=== PATIENT | female | born 1955 | race Caucasian/White ===

== ENCOUNTER → 2016-09-04 | Outpatient (CLI) | payer BC ==
[~2016-09-04] MED LIST: ASPI325T OR; CALTRATE 600 + D PO; CETI5TAB2 OR; DIOV160T5 OR; FIBER CON PO; MULTIVIT PO; OXYB10TA OR; PEPC20TA2 OR; ZOCO40TA OR; estrogen PO
[2016-09-04 13:43] LABS: BLOOD UREA NITROGEN 23 MG/DL (7-18); CREATININE FOR GFR 0.84 MG/DL (0.55-1.02); GLUCOSE, FASTING 107 MG/DL (80-110)
[2016-09-04 13:44] LABS: ALBUMIN 4.4 GM/DL (3.2-5.2); ALBUMIN/GLOBULIN RATIO 1.76 (1.00-1.93); ALKALINE PHOSPHATASE 83 U/L (45-117); ALT/SGPT 23 U/L (12-78); ANION GAP 8 MEQ/L (8-16); AST/SGOT 17 U/L (15-37); BILIRUBIN,TOTAL 0.4 MG/DL (0.2-1.0); CARBON DIOXIDE LEVEL 28 MEQ/L (21-32); CHLORIDE LEVEL 107 MEQ/L (98-107); CHOLESTEROL LEVEL 151 MG/DL (<200); GLOMERULAR FILTRATION RATE > 60.0 (>45); POTASSIUM SERUM 4.3 MEQ/L (3.5-5.1); SODIUM LEVEL 143 MEQ/L (136-145); TOTAL PROTEIN 6.9 GM/DL (6.4-8.2); TRIGLYCERIDES LEVEL 111 MG/DL (<150)
== END ==
LOC: M SMT 09:39
PROVIDERS: ATTEND Family Medicine
DX: E78.2 Mixed hyperlipidemia (principal); R73.01 Impaired fasting glucose

== ENCOUNTER → 2016-09-14 | Outpatient (REF) | payer BC ==
[2016-09-14 13:51] LABS: BASO % 0.5 % (0.0-1.0); EOS # 0.2 K/mm3 (0.0-0.50); EOS % 3.4 % (0.0-3.0); LARGE UNSTAINED CELL # 0.1 K/mm3 (0.0-0.4); LARGE UNSTAINED CELL % 1.7 % (0.0-4.0); LYMPH # 1.4 K/mm3 (1.5-4.5); MEAN CORPUSCULAR HEMOGLOBIN 30.2 pg (27.0-33.0); MEAN CORPUSCULAR HGB CONC 32.5 g/dl (32.0-36.5); MEAN CORPUSCULAR VOLUME 92.9 fl (80.0-96.0); MONO # 0.2 K/mm3 (0.0-0.8); MONO % 4.8 % (0.0-5.0); NEUTROPHILS % 61.6 % (36.0-66.0); PLATELET COUNT, AUTOMATED 178 k/mm3 (150-450); RED CELL DISTRIBUTION WIDTH 12.8 % (11.5-14.5); WHITE BLOOD COUNT 4.8 K/mm3 (4.0-10.0)
[2016-09-14 13:59] LABS: PERCENT SATURATION 21.8 % (13.2-37.4)
== END ==
LOC: M SFHCPLAZ 09:41
PROVIDERS: ATTEND Family Medicine
DX: I10 Essential (primary) hypertension (principal)

== ENCOUNTER → 2016-11-27 | Outpatient (CLI) | payer BC ==
--- NOTE | 2016-11-27 14:33 | REPMRS ---
Patient History The patient states she has not had a clinical breast exam in over a year. Patient is postmenopausal. Family history of breast cancer in maternal aunt and breast cancer in paternal aunt. Benign stereotactic core biopsy of the left breast, 2006. Took unspecified hormones for 26 years. Digital Woman Screen Mammo: November 27, 2016 - Exam #: [id number] Bilateral CC and MLO view(s) were taken. Technologist: Melvi Burns, Technologist Prior study comparison: November 18, 2015, bilateral digital mammo screening bilat, performed at [facility]. May 12, 2015, right breast digital mammo diagnostic unilateral, performed at [facility]. FINDINGS: The breast tissue is heterogeneously dense. This may lower the sensitivity of mammography. There has been no change in the appearance of the mammogram from the prior studies. There is a moderate amount of residual fibroglandular tissue which is fairly symmetric. There is no interval development of dominant mass, areas of architectural distortion, or clustered microcalcification typical of malignancy. ASSESSMENT: BI-RADS/ACR category 1 mammogram. Negative. Recommendation Routine screening mammogram in 1 year (for women over age 40). This mammogram was interpreted with the aid of an FDA-approved computer-aided dectection system. Electronically Signed By: Malcolm Thornton MD 11/27/16 1116
--- NOTE | 2016-11-29 14:05 | DEXA ---
AP SPINE L1 - L4 1.084 -0.9 0.4 LT FEMUR TOTAL 0.864 -1.1 -0.1 RT FEMUR TOTAL 0.848 -1.3 -0.3 TOTAL BODY TOTAL OTHER DUAL FEMUR FRAX* ASSESSMENT Risk factors: History of fracture (adult). Secondary osteoporosis ( premature menopause). 10 year probability of fracture Major osteoporotic fracture 16.9 % Hip fracture 2.3 % COMMENTS: Normal bone densitometry of the spine. There is low bone density of the hips. The decreased density of the spine does represent a significant change. The decreased density of the left hip does represent a significant change. The decreased density of the right hip does not represent a significant change. The density of the spine has decreased 7.4% since the initial exam on 2002. The spine density has decreased 2.2% since the most recent exam on 10/07/2014. The density of the left hip has decreased 12.0% since the initial exam on 2002. The density of the left hip has decreased 5.0% since the most recent exam on 03/2015. The density of the right hip has decreased 12.1% since the initial exam on 04/07. The density of the right hip has decreased 0.6% since the most recent exam on . FOLLOW-UP: Recommendation for the next bone density exam: 2 years. CHRIS
== END ==
LOC: M WHC 12:52
PROVIDERS: ATTEND Family Medicine
DX: Z12.31 Encounter for screening mammogram for malignant neoplasm of breast (principal); M85.80 Other specified disorders of bone density and structure, unspecified site; Z78.0 Asymptomatic menopausal state
CPT/HCPCS: 77080; G0202

== ENCOUNTER → 2017-02-01 | Outpatient (CLI) | payer BC ==
[2017-02-01 17:44] LABS: ALBUMIN 4.5 GM/DL (3.2-5.2); ALBUMIN/GLOBULIN RATIO 1.88 (1.00-1.93); ALKALINE PHOSPHATASE 80 U/L (45-117); ALT/SGPT 25 U/L (12-78); ANION GAP 7 MEQ/L (8-16); AST/SGOT 13 U/L (15-37); BILIRUBIN,TOTAL 0.6 MG/DL (0.2-1.0); BLOOD UREA NITROGEN 22 MG/DL (7-18); CALCIUM LEVEL 10.1 MG/DL (8.8-10.2); CARBON DIOXIDE LEVEL 30 MEQ/L (21-32); CHLORIDE LEVEL 106 MEQ/L (98-107); CREATININE FOR GFR 0.73 MG/DL (0.55-1.02); GLOMERULAR FILTRATION RATE > 60.0 (>45); GLUCOSE, FASTING 96 MG/DL (80-110); MAGNESIUM LEVEL 2.4 MG/DL (1.8-2.4); POTASSIUM SERUM 4.3 MEQ/L (3.5-5.1); SODIUM LEVEL 143 MEQ/L (136-145); TOTAL PROTEIN 6.9 GM/DL (6.4-8.2)
[2017-02-01 17:54] LABS: BASO % 0.5 % (0.0-1.0); EOS # 0.1 K/mm3 (0.0-0.50); EOS % 1.5 % (0.0-3.0); LARGE UNSTAINED CELL # 0.1 K/mm3 (0.0-0.4); LARGE UNSTAINED CELL % 1.5 % (0.0-4.0); LYMPH # 1.2 K/mm3 (1.5-4.5); LYMPH % 20.3 % (24.0-44.0); MEAN CORPUSCULAR HEMOGLOBIN 30.2 pg (27.0-33.0); MEAN CORPUSCULAR VOLUME 91.4 fl (80.0-96.0); MONO # 0.3 K/mm3 (0.0-0.8); MONO % 4.7 % (0.0-5.0); NEUTROPHILS # 3.9 K/mm3 (1.8-7.7); NEUTROPHILS % 71.5 % (36.0-66.0); PLATELET COUNT, AUTOMATED 218 k/mm3 (150-450); WHITE BLOOD COUNT 5.5 K/mm3 (4.0-10.0)
== END ==
LOC: M SMT 13:35
PROVIDERS: ATTEND Family Medicine
DX: I10 Essential (primary) hypertension (principal); R73.01 Impaired fasting glucose; E55.9 Vitamin D deficiency, unspecified

== ENCOUNTER → 2017-03-19 | Outpatient (REF) | payer BC ==
[2017-03-19 19:03] LABS: ALBUMIN 4.1 GM/DL (3.2-5.2); ALBUMIN/GLOBULIN RATIO 1.37 (1.00-1.93); ALKALINE PHOSPHATASE 71 U/L (45-117); ALT/SGPT 31 U/L (12-78); ANION GAP 7 MEQ/L (8-16); AST/SGOT 18 U/L (15-37); BILIRUBIN,TOTAL 0.3 MG/DL (0.2-1.0); BLOOD UREA NITROGEN 21 MG/DL (7-18); CALCIUM LEVEL 9.4 MG/DL (8.8-10.2); CARBON DIOXIDE LEVEL 30 MEQ/L (21-32); CHLORIDE LEVEL 107 MEQ/L (98-107); CHOLESTEROL LEVEL 146 MG/DL (<200); CREATININE FOR GFR 0.71 MG/DL (0.55-1.02); FERRITIN 32 NG/ML (8-252); GLOMERULAR FILTRATION RATE > 60.0 (>45); GLUCOSE, FASTING 91 MG/DL (80-110); MAGNESIUM LEVEL 2.3 MG/DL (1.8-2.4); PERCENT SATURATION 26.3 % (13.2-45.0); POTASSIUM SERUM 4.2 MEQ/L (3.5-5.1); SODIUM LEVEL 144 MEQ/L (136-145); TOTAL IRON BINDING CAPACITY 342 UG/DL (250-450); TOTAL PROTEIN 7.1 GM/DL (6.4-8.2); TRIGLYCERIDES LEVEL 140 MG/DL (<150)
[2017-03-19 19:07] LABS: VITAMIN B12 LEVEL 571 PG/ML (247-911)
== END ==
LOC: M SFHCPLAZ 15:45
PROVIDERS: ATTEND Physician Assistant Medical
DX: E78.2 Mixed hyperlipidemia (principal); I10 Essential (primary) hypertension; R73.01 Impaired fasting glucose

== ENCOUNTER 2017-07-27 02:14 | Emergency (ER) | payer OTHER, BC ==
[2017-07-27 03:09] LABS: BASO % 0.3 % (0.0-1.0); EOS # 0.1 10^3/uL (0.0-0.50); EOS % 2.6 % (0.0-3.0); HEMOGLOBIN 11.8 g/dl (12.0-16.0); IMMATURE GRANULOCYTE % 0.3 % (0-0); LYMPH # 0.8 10^3/uL (1.5-4.5); LYMPH % 22.1 % (24.0-44.0); MEAN CORPUSCULAR HEMOGLOBIN 30.5 pg (27.0-33.0); MEAN CORPUSCULAR HGB CONC 33.7 g/dl (32.0-36.5); MEAN CORPUSCULAR VOLUME 90.4 fl (80.0-96.0); MONO # 0.4 10^3/uL (0.0-0.8); MONO % 9.2 % (0.0-5.0); NEUTROPHILS # 2.5 10^3/uL (1.8-7.7); NEUTROPHILS % 65.5 % (36.0-66.0); PLATELET COUNT, AUTOMATED 141 10^3/uL (150-450); RED BLOOD COUNT 3.87 10^6/uL (4.00-5.40); RED CELL DISTRIBUTION WIDTH 12.8 % (11.5-14.5); WHITE BLOOD COUNT 3.8 10^3/uL (4.0-10.0)
[2017-07-27] MEDS: GI COCKTAIL 50ML BTL(HYOSCYAMINE/MAALOX/LIDOCAINE VISCOUS)(1:3:1) PO (03:12)
[2017-07-27 03:23] LABS: ANION GAP 6 MEQ/L (8-16); BLOOD UREA NITROGEN 20 MG/DL (7-18); CALCIUM LEVEL 8.7 MG/DL (8.8-10.2); CARBON DIOXIDE LEVEL 27 MEQ/L (21-32); CHLORIDE LEVEL 106 MEQ/L (98-107); CPK CREATINE PHOSPHOKINASE 97 U/L (26-192); CREATININE FOR GFR 0.76 MG/DL (0.55-1.02); GLOMERULAR FILTRATION RATE > 60.0 (>45); GLUCOSE, FASTING 122 MG/DL (70-100); MB/CK RELATIVE INDEX 1.03 (< OR =4); POTASSIUM SERUM 3.9 MEQ/L (3.5-5.1); SODIUM LEVEL 139 MEQ/L (136-145); TROPONIN I < 0.02 NG/ML (< 0.10)
[2017-07-27] MEDS: PANTOPRAZOLE 40MG INJ (PROTONIX) (C9113) IV (04:00)
[2017-07-27 08:22] LABS: CPK CREATINE PHOSPHOKINASE 82 U/L (26-192); MB/CK RELATIVE INDEX 1.21 (< OR =4); TROPONIN I < 0.02 NG/ML (< 0.10)
== END 2017-07-27 09:07 | disposition home or self-care (01) ==
LOC: M ED 02:14
DX: R07.9 Chest pain, unspecified (principal); I25.2 Old myocardial infarction; Z79.890 Hormone replacement therapy; Z79.82 Long term (current) use of aspirin; Z79.899 Other long term (current) drug therapy; Z82.49 Family history of ischemic heart disease and other diseases of the circulatory system
CPT/HCPCS: C9113

== ENCOUNTER → 2017-08-06 | Outpatient (REF) | payer OTHER ==
[2017-08-06 12:56] LABS: BASO % 0.4 % (0.0-1.0); EOS # 0.1 10^3/uL (0.0-0.50); EOS % 2.4 % (0.0-3.0); HEMATOCRIT 37.1 % (36.0-47.0); IMMATURE GRANULOCYTE % 0.4 % (0-0); LYMPH # 1.6 10^3/uL (1.5-4.5); LYMPH % 28.4 % (24.0-44.0); MEAN CORPUSCULAR HEMOGLOBIN 29.9 pg (27.0-33.0); MEAN CORPUSCULAR HGB CONC 32.3 g/dl (32.0-36.5); MEAN CORPUSCULAR VOLUME 92.3 fl (80.0-96.0); MONO # 0.3 10^3/uL (0.0-0.8); MONO % 5.4 % (0.0-5.0); NEUTROPHILS # 3.5 10^3/uL (1.8-7.7); PLATELET COUNT, AUTOMATED 190 10^3/uL (150-450); RED BLOOD COUNT 4.02 10^6/uL (4.00-5.40); RED CELL DISTRIBUTION WIDTH 12.2 % (11.5-14.5); WHITE BLOOD COUNT 5.5 10^3/uL (4.0-10.0)
[2017-08-06 13:03] LABS: APPEARANCE, URINE HAZY (CLEAR); BACTERIA, URINE AUTO NEGATIVE (NEGATIVE); BILIRUBIN, URINE AUTO NEGATIVE (NEGATIVE); BLOOD, URINE BLOOD NEGATIVE (NEGATIVE); CALCIUM OXALATE CRYSTALS MODERATE; COLOR, URINE YELLOW (YELLOW); GLUCOSE, URINE (UA) AUTO NEGATIVE (NEGATIVE); KETONE, URINE AUTO NEGATIVE (NEGATIVE); LEUKOCYTE ESTERASE, URINE AUTO TRACE (NEGATIVE); MUCUS, URINE SMALL (NEGATIVE); NITRITE, URINE AUTO NEGATIVE (NEGATIVE); PROTEIN, URINE AUTO NEGATIVE (NEGATIVE); RBC, URINE AUTO 1 /HPF (0-3); SPECIFIC GRAVITY URINE AUTO 1.032 (1.002-1.035); SQUAMOUS EPITHELIAL CELL UR AU 2 /HPF (0-6); UROBILINOGEN, URINE AUTO 0.2 mg/dL (0.0-2.0); WBC, URINE AUTO 2 /HPF (0-3)
[2017-08-06 13:25] LABS: ALBUMIN 4.1 GM/DL (3.2-5.2); ALBUMIN/GLOBULIN RATIO 1.37 (1.00-1.93); ALKALINE PHOSPHATASE 76 U/L (45-117); ALT/SGPT 19 U/L (12-78); ANION GAP 5 MEQ/L (8-16); AST/SGOT 14 U/L (7-37); BILIRUBIN,TOTAL 0.3 MG/DL (0.2-1.0); BLOOD UREA NITROGEN 19 MG/DL (7-18); CALCIUM LEVEL 9.1 MG/DL (8.8-10.2); CARBON DIOXIDE LEVEL 31 MEQ/L (21-32); CHLORIDE LEVEL 107 MEQ/L (98-107); CREATININE FOR GFR 0.66 MG/DL (0.55-1.30); GLOMERULAR FILTRATION RATE > 60.0 (>45); GLUCOSE, FASTING 95 MG/DL (70-100); POTASSIUM SERUM 4.1 MEQ/L (3.5-5.1); SODIUM LEVEL 143 MEQ/L (136-145); TOTAL PROTEIN 7.1 GM/DL (6.4-8.2)
[2017-08-06 13:26] LABS: MALB URINE SIEMENS 27.4 MG/L; MAU/CREAT RATIO 8.7 MCG/MG (0.0-30.0)
[2017-08-06 13:29] LABS: PTH INTACT 42.2 PG/ML (14.0-72.0); TOTAL 25(OH) VITAMIN D 21.8 NG/ML (30.0-100.0)
[2017-08-06 13:37] LABS: ESTIMATED AVERAGE GLUCOSE 114 MG/DL (60-110); HEMOGLOBIN A1c 5.6 %
[2017-08-07 14:13] LABS: INSULIN LEVEL 14.9 uIU/mL (2.6-24.9)
== END ==
LOC: M SFHCPLAZ 09:35
DX: R73.01 Impaired fasting glucose (principal); I10 Essential (primary) hypertension; E55.9 Vitamin D deficiency, unspecified; M47.816 Spondylosis without myelopathy or radiculopathy, lumbar region

== ENCOUNTER → 2017-08-06 | Outpatient (CLI) | payer OTHER | LOC: M SMT 11:09 | DX: M47.816 Spondylosis without myelopathy or radiculopathy, lumbar region (principal) ==

== ENCOUNTER → 2018-01-07 | Outpatient (REF) | payer OTHER ==
[2018-01-07 16:30] LABS: PTH INTACT 65.1 PG/ML (18.5-88.0); TOTAL 25(OH) VITAMIN D 23.6 NG/ML (30.0-100.0)
[2018-01-07 16:32] LABS: C REACTIVE PROTEIN QUANTITATIV 0.58 MG/DL (0.00-0.30); CHOLESTEROL LEVEL 141 MG/DL (<200); CHOLESTEROL RISK RATIO 2.203 (<5); CPK CREATINE PHOSPHOKINASE 57 U/L (26-192); FREE T4 0.85 NG/DL (0.76-1.46); HDL CHOLESTEROL 64 MG/DL (>40); LDL CHOLESTEROL 50.6 MG/DL (<100); NON-HDL-C 77 MG/DL; TRIGLYCERIDES LEVEL 132 MG/DL (<150)
[2018-01-07 16:33] LABS: ESTIMATED AVERAGE GLUCOSE 114 MG/DL (60-110); HEMOGLOBIN A1c 5.6 %
== END ==
LOC: M SFHCPLAZ 10:35
DX: R73.01 Impaired fasting glucose (principal); E78.2 Mixed hyperlipidemia; E55.9 Vitamin D deficiency, unspecified

== ENCOUNTER → 2018-04-15 | Outpatient (CLI) | payer OTHER | LOC: M WHC 12:51 | DX: Z12.31 Encounter for screening mammogram for malignant neoplasm of breast (principal) | CPT/HCPCS: 77067 ==

== ENCOUNTER 2018-04-28 16:24 | Emergency (ER) | payer OTHER ==
[2018-04-28 18:12] LABS: BASO % 0.1 % (0.0-1.0); EOS % 0.4 % (0.0-3.0); HEMATOCRIT 39.6 % (36.0-47.0); HEMOGLOBIN 12.9 g/dl (12.0-15.5); IMMATURE GRANULOCYTE % 0.7 % (0-3.0); LYMPH # 2.6 10^3/uL (1.5-4.5); LYMPH % 26.7 % (24.0-44.0); MEAN CORPUSCULAR HEMOGLOBIN 30.1 pg (27.0-33.0); MEAN CORPUSCULAR HGB CONC 32.6 g/dl (32.0-36.5); MEAN CORPUSCULAR VOLUME 92.3 fl (80.0-96.0); MONO # 0.7 10^3/uL (0.0-0.8); MONO % 6.8 % (0.0-5.0); NEUTROPHILS # 6.3 10^3/uL (1.8-7.7); NEUTROPHILS % 65.3 % (36.0-66.0); PLATELET COUNT, AUTOMATED 206 10^3/uL (150-450); RED BLOOD COUNT 4.29 10^6/uL (4.00-5.40); RED CELL DISTRIBUTION WIDTH 12.9 % (11.5-14.5); WHITE BLOOD COUNT 9.7 10^3/uL (4.0-10.0)
[2018-04-28] MEDS: NS 1,000 ML IV (18:14)
[2018-04-28 18:29] LABS: INR 0.94; PROTHROMBIN TIME 12.7 SECONDS (12.1-14.4)
[2018-04-28 18:54] LABS: ALBUMIN 3.8 GM/DL (3.2-5.2); ALBUMIN/GLOBULIN RATIO 1.31 (1.00-1.93); ALKALINE PHOSPHATASE 77 U/L (45-117); ALT/SGPT 47 U/L (12-78); ANION GAP 11 MEQ/L (8-16); AST/SGOT 22 U/L (7-37); BILIRUBIN,DIRECT < 0.1 MG/DL (0.0-0.2); BILIRUBIN,TOTAL 0.3 MG/DL (0.2-1.0); BLOOD UREA NITROGEN 23 MG/DL (7-18); CALCIUM LEVEL 9.2 MG/DL (8.8-10.2); CARBON DIOXIDE LEVEL 26 MEQ/L (21-32); CHLORIDE LEVEL 105 MEQ/L (98-107); CK-MB VALUE MASS < 1.0 NG/ML (<3.6); CPK CREATINE PHOSPHOKINASE 29 U/L (26-192); CREATININE FOR GFR 0.72 MG/DL (0.55-1.30); FREE T4 1.13 NG/DL (0.76-1.46); GLOMERULAR FILTRATION RATE > 60.0 (>45); GLUCOSE, FASTING 84 MG/DL (70-100); MB/CK RELATIVE INDEX 3.45 (< OR =4); POTASSIUM SERUM 3.7 MEQ/L (3.5-5.1); SODIUM LEVEL 142 MEQ/L (136-145); TOTAL PROTEIN 6.7 GM/DL (6.4-8.2); TROPONIN I < 0.02 NG/ML (< 0.10)
[2018-04-28] MEDS ORDERED: ISOVUE-370 76% 100ML VIAL (Q9967) As Ordered (19:05)
[2018-04-28 19:20] LABS: INFLUENZA A AMPLIFICATION NEGATIVE (NEGATIVE); INFLUENZA B AMPLIFICATION NEGATIVE (NEGATIVE)
== END 2018-04-28 20:40 | disposition home or self-care (01) ==
LOC: M ED 16:24
DX: R55 Syncope and collapse (principal); I45.19 Other right bundle-branch block; I25.10 Atherosclerotic heart disease of native coronary artery without angina pectoris; I25.2 Old myocardial infarction; I10 Essential (primary) hypertension; Z95.5 Presence of coronary angioplasty implant and graft; Z79.82 Long term (current) use of aspirin; Z79.890 Hormone replacement therapy; Z79.899 Other long term (current) drug therapy
CPT/HCPCS: Q9967

== ENCOUNTER → 2018-11-03 | Outpatient (REF) | payer MEDICARE ==
[2018-11-03 13:57] LABS: ALBUMIN 4.3 GM/DL (3.2-5.2); ALT/SGPT 36 U/L (12-78); BILIRUBIN,TOTAL 0.5 MG/DL (0.2-1.0); BLOOD UREA NITROGEN 21 MG/DL (7-18); CALCIUM LEVEL 9.2 MG/DL (8.8-10.2); CARBON DIOXIDE LEVEL 31 MEQ/L (21-32); CHLORIDE LEVEL 108 MEQ/L (98-107); CHOLESTEROL LEVEL 172 MG/DL (<200); CHOLESTEROL RISK RATIO 1.932 (<5); CREATININE FOR GFR 0.69 MG/DL (0.55-1.30); GLOMERULAR FILTRATION RATE > 60.0 (>45); GLUCOSE, FASTING 83 MG/DL (70-100); HDL CHOLESTEROL 89 MG/DL (>40); LDL CHOLESTEROL 67 MG/DL (<100); MAGNESIUM LEVEL 2.2 MG/DL (1.8-2.4); NON-HDL-C 83 MG/DL; POTASSIUM SERUM 4.4 MEQ/L (3.5-5.1); SODIUM LEVEL 141 MEQ/L (136-145); TOTAL PROTEIN 6.8 GM/DL (6.4-8.2); TRIGLYCERIDES LEVEL 80 MG/DL (<150)
[2018-11-03 14:00] LABS: APPEARANCE, URINE CLEAR (CLEAR); BACTERIA, URINE AUTO NEGATIVE (NEGATIVE); BILIRUBIN, URINE AUTO NEGATIVE (NEGATIVE); BLOOD, URINE BLOOD NEGATIVE (NEGATIVE); COLOR, URINE YELLOW (YELLOW); GLUCOSE, URINE (UA) AUTO NEGATIVE (NEGATIVE); KETONE, URINE AUTO TRACE mg/dL (NEGATIVE); LEUKOCYTE ESTERASE, URINE AUTO NEGATIVE (NEGATIVE); MUCUS, URINE SMALL (NEGATIVE); NITRITE, URINE AUTO NEGATIVE (NEGATIVE); PROTEIN, URINE AUTO NEGATIVE (NEGATIVE); RBC, URINE AUTO 2 /HPF (0-3); SPECIFIC GRAVITY URINE AUTO 1.027 (1.002-1.035); SQUAMOUS EPITHELIAL CELL UR AU 1 /HPF (0-6); UROBILINOGEN, URINE AUTO 0.2 mg/dL (0.0-2.0); WBC, URINE AUTO 1 /HPF (0-3)
[2018-11-03 14:09] LABS: MALB URINE SIEMENS 14.5 MG/L; MAU/CREAT RATIO 7.5 MCG/MG (0.0-30.0)
[2018-11-03 14:12] LABS: HEMOGLOBIN A1c 5.6 %
[2018-11-04 14:16] LABS: INSULIN LEVEL 15.4 uIU/mL (2.6-24.9)
== END ==
LOC: M SFHCPLAZ 11:23
PROVIDERS: ATTEND Family Medicine
DX: R73.01 Impaired fasting glucose (principal); E78.2 Mixed hyperlipidemia; J30.89 Other allergic rhinitis

== ENCOUNTER → 2018-12-16 | Outpatient (CLI) | payer MEDICARE ==
--- NOTE | 2018-12-16 14:47 | REP ---
UNILATERAL DIAGNOSTIC MAMMOGRAM LEFT BREAST: Patient complains of tenderness intermittently in the left breast with fullness. History of breast cancer in the maternal aunt and paternal aunt. Tyrer-Cuzick lifetime risk of breast cancer 7.3%. COMPARISON: 04/15/2018 as well as multiple other prior studies. MLO and CC views of left breast performed with a 3D tomosynthesis. There is moderate fibroglandular tissue, which is unchanged compared to the prior studies. There is no new mass or architectural distortion. No clustered microcalcifications are seen. Metallic marking clip is again seen in the upper outer quadrant of the left breast. IMPRESSION: BIRADS 1: BI-RADS/ACR category 1 mammogram. Negative Mammogram. ACR 1 negative mammogram left breast in this patient who complains of intermittent scattered breast tenderness. Recommend followup bilateral mammogram March 2019. This mammogram was interpreted with the aid of an FDA-approved computer-aided detection system. A. Negative x-ray reports should not delay biopsy if a dominant or clinically suspicious mass is present. B. Four to eight percent of cancers are not identified by x-ray. C. Adenosis and dense breasts may obscure an underlying neoplasm. The patient states she/he had a clinical breast exam in November 2018. The patient letter being requested is M2 Electronically Signed by Malcolm Thornton MD 12/16/2018 04:42 P
== END ==
LOC: M RAD 13:38
PROVIDERS: ATTEND Nurse Practitioner Family
DX: N64.4 Mastodynia (principal)
CPT/HCPCS: 77065; G0279

== ENCOUNTER → 2019-04-09 | Outpatient (REF) | payer MEDICARE ==
[2019-04-09 15:42] LABS: BASO % 0.6 % (0.0-1.0); EOS # 0.1 10^3/uL (0.0-0.5); EOS % 1.8 % (0.0-3.0); LYMPH # 1.3 10^3/uL (1.5-5.0); LYMPH % 26.6 % (24.0-44.0); MEAN CORPUSCULAR HEMOGLOBIN 29.4 pg (27.0-33.0); MEAN CORPUSCULAR HGB CONC 31.7 g/dl (32.0-36.5); MEAN CORPUSCULAR VOLUME 92.8 fl (80.0-96.0); MONO # 0.4 10^3/uL (0.0-0.8); MONO % 7.3 % (0.0-5.0); NEUTROPHILS # 3.1 10^3/uL (1.5-8.5); NEUTROPHILS % 63.5 % (36.0-66.0); PLATELET COUNT, AUTOMATED 168 10^3/uL (150-450); RED BLOOD COUNT 4.42 10^6/uL (4.00-5.40); WHITE BLOOD COUNT 4.9 10^3/uL (4.0-10.0)
[2019-04-09 15:59] LABS: ALBUMIN 4.1 GM/DL (3.2-5.2); ALT/SGPT 28 U/L (12-78); BILIRUBIN,TOTAL 0.5 MG/DL (0.2-1.0); BLOOD UREA NITROGEN 17 MG/DL (7-18); CALCIUM LEVEL 9.1 MG/DL (8.8-10.2); CARBON DIOXIDE LEVEL 29 MEQ/L (21-32); CHLORIDE LEVEL 109 MEQ/L (98-107); CREATININE FOR GFR 0.72 MG/DL (0.55-1.30); GLOMERULAR FILTRATION RATE > 60.0 (>45); GLUCOSE, FASTING 88 MG/DL (70-100); POTASSIUM SERUM 4.4 MEQ/L (3.5-5.1); SODIUM LEVEL 142 MEQ/L (136-145); TOTAL PROTEIN 6.9 GM/DL (6.4-8.2)
[2019-04-09 16:05] LABS: HEMOGLOBIN A1c 5.7 %
[2019-04-09 16:06] LABS: PTH INTACT 66.6 PG/ML (18.5-88.0); TOTAL 25(OH) VITAMIN D 48.1 NG/ML (30.0-100.0)
== END ==
LOC: M SFHCPLAZ 12:16
PROVIDERS: ATTEND Family Medicine
DX: R73.01 Impaired fasting glucose (principal); E55.9 Vitamin D deficiency, unspecified

== ENCOUNTER → 2019-07-24 | Outpatient (CLI) | payer MEDICARE ==
--- NOTE | 2019-07-24 09:35 | REP ---
BILATERAL SCREENING DIGITAL MAMMOGRAM WITH 3D TOMOSYNTHESIS: There are no palpable abnormalities or other breast complaints. The the patient states she had a clinical breast examination the November,. e The Tyrer Cuzick Score is: 7.3% . Comparison is the 09/18/2013. The The breasts are heterogeneously dense, which could obscure small masses. There is no dominant mass, micro calcific cluster or architectural distortion that would indicate malignancy. There is a biopsy marking clip in the left breast, unchanged. The the patient had a stereotactic core biopsy in 2006. Biopsy was reportedly benign. There are no additional findings on 3D tomosynthesiss. There is no change from the prior study. Impression: BIRADS/ACR category 1 mammogram. Negative. Recommendation: Routine annual screening mammography. Because of the increased breast density, annual adjunctive breast MRI in addition to screening mammography is recommended. These can be performed at alternating six month intervals. This mammogram was interpreted with the aid of a FDA approved computer-aided detection system. A. Negative mammogram reports should not delay biopsy if a dominant or clinically suspicious mass is present. B. Not all breast cancers are identified by mammography or tomosynthesis. C. Adenosis and dense breasts may obscure an underlying neoplasm. Patient letter M1 dense breasts. Electronically Signed by Malcolm John MD 07/24/2019 09:26 A
--- NOTE | 2019-07-29 13:53 | DEXA ---
AP SPINE L1 - L4 1.093 -0.8 0.8 LT FEMUR TOTAL 0.899 -0.9 0.4 LT NECK 0.806 -1.7 -0.2 RT FEMUR TOTAL 0.910 -0.8 0.5 RT NECK 0.831 -1.5 0.0 TOTAL BODY TOTAL OTHER COMMENTS: Normal bone densitometry of the spine. There is low bone density of the left hip based on femoral neck T score -1.7, left. There is low bone density of the right hip based on femoral neck T score -1.5 right. The increased density of the spine does not represent significant change since 11/27/2016. The increased density of the left hip does represent significant change since 11/27/2016. The increased density of the right hip does represent a significant change. The density of the spine has decreased 6.6% since the initial exam on 04/07/2003. The spine density has increased 0.8% since the most recent exam on 11/27/2016. The density of the left hip has decreased 8.5% since the initial exam on 04/07/2003. The density of the left hip has increased her 4.1% since the most recent exam on 11/27/2016. The density of the right hip has decreased 5.7% since the initial exam on 04/07/2003. The density of the right hip has increased 7.3% since the most recent exam on 11/27/2016. FOLLOW-UP: Recommendation for the next bone density exam: 2 years. CHRIS
== END ==
LOC: M WHC 07:54
PROVIDERS: ATTEND Family Medicine
DX: Z12.31 Encounter for screening mammogram for malignant neoplasm of breast (principal); M85.89 Other specified disorders of bone density and structure, multiple sites

== ENCOUNTER → 2019-08-31 | Outpatient (CLI) | payer MEDICARE ==
[2019-08-31 13:55] LABS: BASO % 0.6 % (0.0-1.0); EOS # 0.1 10^3/uL (0.0-0.5); EOS % 1.5 % (0.0-3.0); HEMOGLOBIN 13.1 g/dl (12.0-15.5); LYMPH # 1.4 10^3/uL (1.5-5.0); LYMPH % 26.1 % (24.0-44.0); MEAN CORPUSCULAR HEMOGLOBIN 29.2 pg (27.0-33.0); MEAN CORPUSCULAR VOLUME 91.5 fl (80.0-96.0); MONO # 0.3 10^3/uL (0.0-0.8); MONO % 6.3 % (0.0-5.0); NEUTROPHILS # 3.4 10^3/uL (1.5-8.5); NEUTROPHILS % 65.1 % (36.0-66.0); PLATELET COUNT, AUTOMATED 188 10^3/uL (150-450); RED BLOOD COUNT 4.48 10^6/uL (4.00-5.40); WHITE BLOOD COUNT 5.3 10^3/uL (4.0-10.0)
[2019-08-31 14:31] LABS: ALBUMIN 4.4 GM/DL (3.2-5.2); ALT/SGPT 37 U/L (12-78); BILIRUBIN,TOTAL 0.4 MG/DL (0.2-1.0); BLOOD UREA NITROGEN 25 MG/DL (7-18); C REACTIVE PROTEIN QUANTITATIV < 0.30 MG/DL (0.00-0.30); CALCIUM LEVEL 9.4 MG/DL (8.8-10.2); CARBON DIOXIDE LEVEL 29 MEQ/L (21-32); CHLORIDE LEVEL 110 MEQ/L (98-107); CHOLESTEROL LEVEL 159 MG/DL (<200); CHOLESTEROL RISK RATIO 2.373 (<5); CREATININE FOR GFR 0.66 MG/DL (0.55-1.30); FREE T4 1.01 NG/DL (0.76-1.46); GLOMERULAR FILTRATION RATE > 60.0 (>45); GLUCOSE, FASTING 95 MG/DL (70-100); HDL CHOLESTEROL 67 MG/DL (>40); LDL CHOLESTEROL 70 MG/DL (<100); NON-HDL-C 92 MG/DL; POTASSIUM SERUM 4.4 MEQ/L (3.5-5.1); SODIUM LEVEL 143 MEQ/L (136-145); TOTAL PROTEIN 7.3 GM/DL (6.4-8.2); TRIGLYCERIDES LEVEL 108 MG/DL (<150)
[2019-08-31 15:14] LABS: HEMOGLOBIN A1c 5.8 %
[2019-09-01 11:39] LABS: ALBUMIN % 63.4 % (55.8-66.1); ALPHA-1-GLOBULIN % 3.8 % (2.9-4.9)
[2019-09-01 11:40] LABS: ALBUMIN 4.63 GM/DL (3.29-5.55); ALPHA-1-GLOBULINS 0.28 GM/DL (0.17-0.41); ALPHA-2-GLOBULINS 0.64 GM/DL (0.42-0.99); ALPHA-2-GLOBULINS % 8.8 % (7.1-11.8); BETA-1-GLOBULINS 0.47 GM/DL (0.28-0.60); BETA-1-GLOBULINS % 6.5 % (4.7-7.2); BETA-2-GLOBULINS 0.39 GM/DL (0.19-0.55); BETA-2-GLOBULINS % 5.4 % (3.2-6.5); GAMMA GLOBULIN % 12.1 % (11.1-18.8); GAMMA GLOBULINS 0.88 GM/DL (0.65-1.58)
== END ==
LOC: M PLALAB 12:07
PROVIDERS: ATTEND Family Medicine
DX: R73.01 Impaired fasting glucose (principal); D72.819 Decreased white blood cell count, unspecified; E78.2 Mixed hyperlipidemia

== ENCOUNTER → 2019-11-16 | Outpatient (CLI) | payer MEDICARE ==
--- NOTE | 2019-11-16 17:45 | REP ---
SPINE SERIES: SEVEN VIEWS. HISTORY: Ligament sprain. FINDINGS: Lateral views done in flexion, extension, and neutral position demonstrate no instability. There is a stable degenerative, 3 mm anterior subluxation of C4 on C5. There is degenerative disc disease at C4-5, C5-6, and C6-7. No other subluxation is seen. Prevertebral soft tissues are unremarkable. Oblique images demonstrate right-sided uncovertebral spurring at C4-5, C5-6, and C6-7. On the left, there is uncovertebral spurring at C3-4, C4-5, and C5-6. Osteoarthritic facet disease is noted in the mid cervical spine most pronounced on the left at C4-5. Open-mouth odontoid view is unremarkable. IMPRESSION: Degenerative spondylosis changes, as above. No acute abnormality. Electronically Signed by Micheal Garcia MD 11/17/2019 09:03 A
== END ==
LOC: M WUC 14:50
PROVIDERS: ATTEND Physician Assistant
DX: S13.4XXA Sprain of ligaments of cervical spine, initial encounter (principal); M47.812 Spondylosis without myelopathy or radiculopathy, cervical region; X58.XXXA Exposure to other specified factors, initial encounter; Y92.9 Unspecified place or not applicable

== ENCOUNTER → 2020-02-02 | Outpatient (REF) | payer MEDICARE ==
[2020-02-29 20:22] LABS: HEMATOCRIT 42.6 % (36.0-47.0); HEMOGLOBIN 13.8 g/dl (12.0-15.5); MEAN CORPUSCULAR HEMOGLOBIN 30.4 pg (27.0-33.0); MEAN CORPUSCULAR HGB CONC 32.4 g/dl (32.0-36.5); MEAN CORPUSCULAR VOLUME 93.8 fl (80.0-96.0); PLATELET COUNT, AUTOMATED 240 10^3/uL (150-450); RED BLOOD COUNT 4.54 10^6/uL (4.00-5.40); WHITE BLOOD COUNT 5.9 10^3/uL (4.0-10.0)
[2020-03-18 13:16] LABS: ALBUMIN 4.7 GM/DL (3.2-5.2); ALT/SGPT 40 U/L (12-78); BILIRUBIN,TOTAL 0.4 MG/DL (0.2-1.0); BLOOD UREA NITROGEN 21 MG/DL (7-18); CALCIUM LEVEL 10.2 MG/DL (8.8-10.2); CARBON DIOXIDE LEVEL 29 MEQ/L (21-32); CHLORIDE LEVEL 107 MEQ/L (98-107); CREATININE FOR GFR 0.85 MG/DL (0.55-1.30); GLOMERULAR FILTRATION RATE > 60.0 (>45); GLUCOSE, FASTING 100 MG/DL (70-100); NT-PRO BNP 72 PG/ML (<125); POTASSIUM SERUM 4.7 MEQ/L (3.5-5.1); SODIUM LEVEL 142 MEQ/L (136-145); TOTAL PROTEIN 7.8 GM/DL (6.4-8.2)
== END ==
LOC: M SFHCPLAZ 13:17
PROVIDERS: ATTEND Family Medicine
DX: E78.2 Mixed hyperlipidemia (principal); I10 Essential (primary) hypertension; M83.8 Other adult osteomalacia; R73.01 Impaired fasting glucose

== ENCOUNTER 2020-02-17 09:43 | Emergency (ER) | payer MEDICARE ==
[~2020-02-17] VITALS: Ht 162.6 cm; Wt 75.6 kg
[2020-02-17 09:44] VITALS: BP 182/91
[2020-02-17] MEDS ORDERED: ASPIRIN 81 MG CHEW TABLET PO ONE (11:00)
[2020-02-17] MEDS ORDERED: HEPARIN DRIP 25,000 UNITS in IV 1 EA IV SCH (11:01)
[2020-02-17 11:12] LABS: BASO % 0.7 % (0.0-1.0); EOS # 0.1 10^3/uL (0.0-0.5); EOS % 2.3 % (0.0-3.0); HEMATOCRIT 38.6 % (36.0-47.0); HEMOGLOBIN 12.5 g/dl (12.0-15.5); LYMPH # 1.3 10^3/uL (1.5-5.0); LYMPH % 22.3 % (24.0-44.0); MEAN CORPUSCULAR HEMOGLOBIN 29.8 pg (27.0-33.0); MEAN CORPUSCULAR HGB CONC 32.4 g/dl (32.0-36.5); MEAN CORPUSCULAR VOLUME 91.9 fl (80.0-96.0); MONO # 0.4 10^3/uL (0.0-0.8); MONO % 6.4 % (0.0-5.0); NEUTROPHILS # 3.8 10^3/uL (1.5-8.5); NEUTROPHILS % 67.8 % (36.0-66.0); PLATELET COUNT, AUTOMATED 195 10^3/uL (150-450); WHITE BLOOD COUNT 5.7 10^3/uL (4.0-10.0)
[2020-02-17] MEDS ORDERED: HEPARIN SOD (PORCINE) 5000UNITS/ML 1ML VIAL/SYRINGE IV ONE (11:15)
[2020-02-17 11:24] LABS: INR 0.85; PARTIAL THROMBOPLASTIN TIME 28.2 SECONDS (25.0-38.4); PROTHROMBIN TIME 11.8 SECONDS (11.8-14.0)
[2020-02-17 12:00] LABS: ALT/SGPT 29 U/L (12-78); BILIRUBIN,DIRECT < 0.1 MG/DL (0.0-0.2); BILIRUBIN,TOTAL 0.3 MG/DL (0.2-1.0); FREE T4 1.02 NG/DL (0.76-1.46); LIPASE 128 U/L (73-393); TOTAL PROTEIN 7.2 GM/DL (6.4-8.2)
[2020-02-17 12:06] LABS: D-DIMER QUANT 386.25 ng/ml (<500)
[2020-02-19 17:06] LABS: Lyme Disease IgG/IgM Antibodie <0.91 ISR (0.00-0.90); Lyme Disease IgM Ab Quantitati <0.80 index (0.00-0.79)
--- NOTE | 2020-03-10 09:10 | ECGEPIP ---
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
--- NOTE | 2020-03-16 09:31 | ECGEPIP ---
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
--- NOTE | 2020-03-18 14:25 | ECGEPIP ---
SINUS RHYTHM WITH MARKED RHYTHM IRREGULARITY, POSSIBLE NON-CONDUCTED PAC, SA BLOCK, AV BLOCK, OR SINUS PAUSE ABNORMAL RHYTHM ECG SEE SCANNED DOWNTIME REPORT MTDD
== END 2020-02-17 14:56 | disposition short-term general hospital (02) ==
LOC: M ED 09:43
DX: I25.110 Atherosclerotic heart disease of native coronary artery with unstable angina pectoris (principal); I45.5 Other specified heart block; I11.9 Hypertensive heart disease without heart failure; I25.2 Old myocardial infarction; I49.5 Sick sinus syndrome; E78.5 Hyperlipidemia, unspecified; Z95.5 Presence of coronary angioplasty implant and graft; R06.02 Shortness of breath; Z79.899 Other long term (current) drug therapy; Z79.890 Hormone replacement therapy; Z79.82 Long term (current) use of aspirin
CPT/HCPCS: 71045; 80047; 80076; 83690; 84439; 84443; 84484; 85025; 85379; 85610; 85730; 86617; 93005; 93041; 94760; 96374; 99285; J1644; U0002

== ENCOUNTER → 2020-02-29 | Outpatient (CLI) | payer MEDICARE ==
[2020-02-29 15:56] LABS: ALBUMIN 4.3 GM/DL (3.2-5.2); ALT/SGPT 34 U/L (12-78); BILIRUBIN,TOTAL 0.4 MG/DL (0.2-1.0); BLOOD UREA NITROGEN 19 MG/DL (7-18); CALCIUM LEVEL 9.4 MG/DL (8.8-10.2); CARBON DIOXIDE LEVEL 28 MEQ/L (21-32); CHLORIDE LEVEL 110 MEQ/L (98-107); CREATININE FOR GFR 0.75 MG/DL (0.55-1.30); GLOMERULAR FILTRATION RATE > 60.0 (>45); GLUCOSE, FASTING 100 MG/DL (70-100); NT-PRO BNP 332 PG/ML (<125); POTASSIUM SERUM 4.6 MEQ/L (3.5-5.1); SODIUM LEVEL 143 MEQ/L (136-145); TOTAL PROTEIN 7.4 GM/DL (6.4-8.2)
== END ==
LOC: M PLALAB 12:55
PROVIDERS: ATTEND Family Medicine
DX: I10 Essential (primary) hypertension (principal)

== ENCOUNTER → 2020-03-17 | Outpatient (CLI) | payer MEDICARE ==
[2020-03-17 17:20] LABS: BLOOD UREA NITROGEN 21 MG/DL (7-18); CALCIUM LEVEL 9.8 MG/DL (8.8-10.2); CARBON DIOXIDE LEVEL 28 MEQ/L (21-32); CHLORIDE LEVEL 106 MEQ/L (98-107); CREATININE FOR GFR 0.86 MG/DL (0.55-1.30); GLOMERULAR FILTRATION RATE > 60.0 (>45); GLUCOSE, FASTING 97 MG/DL (70-100); MAGNESIUM LEVEL 2.3 MG/DL (1.8-2.4); NT-PRO BNP 77 PG/ML (<125); POTASSIUM SERUM 4.4 MEQ/L (3.5-5.1); SODIUM LEVEL 140 MEQ/L (136-145)
== END ==
LOC: M PLALAB 14:30
PROVIDERS: ATTEND Family Medicine
DX: I50.9 Heart failure, unspecified (principal)

== ENCOUNTER → 2020-05-09 | Outpatient (CLI) | payer MEDICARE | LOC: M LABSMTC 09:54 | PROVIDERS: ATTEND Pediatrics | DX: Z20.828 Contact with and (suspected) exposure to other viral communicable diseases (principal) ==

== ENCOUNTER → 2020-08-08 | Outpatient (CLI) | payer MEDICARE ==
[~2020-08-08] MED LIST changes: +ACTO35TA9 PO; +AMLO2.5T3 PO; +ASPI81TA26 PO; +COLA100C5 PO; +D31000TA2 PO; +FAMO40TA3 PO; +FLON1SPR; +GABA-1171 PO; +IBUP1TAB5 PO; +MIRA3350 PO; +NITR0.4S14 SL; +OCUVCAP2 PO; +OXYB10TA23 PO; +ROSU40TA4 PO; +TELM1TAB35 PO; +TORS10TA3 PO
[2020-08-08 16:19] LABS: BASO % 0.4 % (0.0-1.0); EOS # 0.1 10^3/uL (0.0-0.5); EOS % 2.7 % (0.0-3.0); HEMATOCRIT 39.3 % (36.0-47.0); HEMOGLOBIN 12.5 g/dl (12.0-15.5); LYMPH # 1.3 10^3/uL (1.5-5.0); LYMPH % 24.5 % (24.0-44.0); MEAN CORPUSCULAR HGB CONC 31.8 g/dl (32.0-36.5); MEAN CORPUSCULAR VOLUME 94.5 fl (80.0-96.0); MONO # 0.4 10^3/uL (0.0-0.8); MONO % 6.7 % (0.0-5.0); NEUTROPHILS # 3.4 10^3/uL (1.5-8.5); NEUTROPHILS % 65.5 % (36.0-66.0); PLATELET COUNT, AUTOMATED 189 10^3/uL (150-450); RED BLOOD COUNT 4.16 10^6/uL (4.00-5.40); WHITE BLOOD COUNT 5.2 10^3/uL (4.0-10.0)
[2020-08-08 16:25] LABS: BLOOD UREA NITROGEN 26 MG/DL (7-18); CALCIUM LEVEL 10.7 MG/DL (8.8-10.2); CARBON DIOXIDE LEVEL 29 MEQ/L (21-32); CHLORIDE LEVEL 107 MEQ/L (98-107); CREATININE FOR GFR 0.96 MG/DL (0.55-1.30); GLOMERULAR FILTRATION RATE > 60.0 (>45); GLUCOSE, FASTING 110 MG/DL (70-100); POTASSIUM SERUM 4.5 MEQ/L (3.5-5.1); SODIUM LEVEL 143 MEQ/L (136-145)
== END ==
LOC: M PLALAB 11:22
PROVIDERS: ATTEND Physician Assistant
DX: I49.5 Sick sinus syndrome (principal)

== ENCOUNTER → 2020-08-09 | Outpatient (CLI) | payer MEDICARE | LOC: M LABSMTC 10:01 | PROVIDERS: ATTEND Anesthesiology | DX: Z11.52 Encounter for screening for COVID-19 (principal) ==

== ENCOUNTER 2020-08-11 11:39 | Day surgery (SDC) | payer MEDICARE ==
[~2020-08-11] VITALS: Ht 162.6 cm; Wt 72.2 kg
[~2020-08-11 11:39] MED LIST changes: +AMIODARONE 150MG/3ML INJ (J0282) As Ordered ONE; +AMIODARONE HCL 360 MG/200 ML PREMIXED BAG (NEXTERONE) (J0282 PER 30MG) As Ordered ONE; +BACITRACIN PWD 50,000 UNITS VIAL As Ordered ONE; +ISOVUE-300 61% 50ML VIAL As Ordered ONE; +LIDOCAINE 1% MDV 20ML VIAL SQ PRN; +LIDOCAINE 1% SDV 30ML VIAL As Ordered ONE; +LR 1,000 ML IV ONE; +ceFAZolin SOD 1 GM in D5W MINI-BAG PLUS 50 ML IV ONE
--- OUTSIDE RECORDS SUMMARY | 2020-08-11 11:44 | CCD | Continuity of Care Document ---
Author Author Ana REEDER PA Organization Unknown Address [address] [place] [id number] Phone [phone] Care Team Providers Care Fern Gatherer Name Role Phone Gregg Newsome MD AUTM [phone] Govind Freeman AUTM [phone] Problems Active Problems Provider Date Essential hypertension GLEN Harris Onset: 12/03/2019 Pure hypercholesterolemia GLEN Harris Onset: 020 Social History Type Date Description Comments Sex Unknown ETOH Use Occasionally consumes alcohol Tobacco Use Start: Unknown Patient has never smoked Allergies, Adverse Reactions, Alerts Description No Known Drug Allergies Medications Active Medications SIG Qnty Indications Ordering Provide r Date Gabapentin 100mg Capsules 1 by mouth three times a day 90caps M47.22 Jones Gorman MD 07/20/2020 Levocetirizine Dihydrochloride 5mg Tablets Gregg Newsome MD Oxybutynin Chloride ER 10mg Tablets ER 24HR Gregg Newsome MD Aspirin Adult Low Strength 81mg Tablets DR daily Unknown Amlodipine Besylate 2.5mg Tablets Unknown Colace 100mg Capsules 1 by mouth twice a day Unknown Famotidine 40mg Tablets Unknown Flonase Allergy Relief 50mcg/Act Suspension 2 sprays per nostril every in the morning as needed Unknown Immunizations Description No Information Available Vital Signs Date Vital Result Comment 07/08/2020 2:42pm Body Temperature 96.5 F Height 63 inches 5'3" Weight 159.00 lb BMI (Body Mass Index) 28.2 kg/m2 05/18/2020 5:43pm Body Temperature 96.7 F Results Description No Information Available Procedures Date Code Description Status 07/08/2020 97852 Nerve Conduction 9-10 Studies Co mpleted 07/08/2020 32813 Needle Electromyography,Complete Five Or More Muscles Studied Completed 03/25/2020 93666 Manual Therapy Each 15 Minutes C ompleted 03/22/2020 71697 Manual Therapy Each 15 Minutes C ompleted 03/22/2020 17614 Therapeutic Procedure, Each 15 M inutes Completed 03/18/2020 91802 Manual Therapy Each 15 Minutes C ompleted 03/18/2020 17230 Therapeutic Procedure, Each 15 M inutes Completed 03/15/2020 57900 Manual Therapy Each 15 Minutes C ompleted 03/15/2020 20671 Therapeutic Procedure, Each 15 M inutes Completed 03/11/2020 10350 Manual Therapy Each 15 Minutes C ompleted 03/11/2020 85105 Therapeutic Procedure, Each 15 M inutes Completed 03/09/2020 03599 Therapeutic Procedure, Each 15 M inutes Completed 03/09/2020 23397 Manual Therapy Each 15 Minutes C ompleted 03/04/2020 47485 Manual Therapy Each 15 Minutes C ompleted 03/04/2020 77237 Therapeutic Procedure, Each 15 M inutes Completed 03/01/2020 52197 Manual Therapy Each 15 Minutes C ompleted 03/01/2020 03705 Therapeutic Procedure, Each 15 M inutes Completed 02/26/2020 93324 Manual Therapy Each 15 Minutes C ompleted 02/26/2020 71715 Therapeutic Procedure, Each 15 M inutes Completed 02/23/2020 87869 Physical Therapy Eval - Low Comp lexity Completed 07/01/2019 [id number] Bone Mineral Density Test Comple donnie 07/01/2014 [id number] Colonoscopy Completed Medical Devices Description No Information Available Encounters Type Date Location Provider Dx Diagnosis Office Visit 07/20/2020 3:30p [place] M47.22 Other spondylosis with radiculopathy, cervical region G56.03 Carpal tunnel syndrome, bila teral upper limbs M43.12 Spondylolisthesis, cervical region M47.892 Other spondylosis, cervical region M50.321 Other cervical disc degenera tion at C4-C5 level M50.322 Other cervical disc degenera tion at C5-C6 level Office Visit 07/08/2020 2:30p [place] Flores MD G56.03 Carpal tunnel syndrome, bilateral upper limbs M43.12 Spondylolisthesis, cervical region M47.892 Other spondylosis, cervical region M50.321 Other cervical disc degenera tion at C4-C5 level M50.322 Other cervical disc degenera tion at C5-C6 level Office Visit 05/18/2020 5:15p [place] M54.2 Cervicalgia M54.12 Radiculopathy, cervical mark on Office Visit 02/03/2020 9:45a [facility] Arriola M47.22 Other spondylosis with radiculopathy, cervical region M50.321 Other cervical disc degenera tion at C4-C5 level M50.322 Other cervical disc degenera tion at C5-C6 level Assessments Date Code Description Provider 07/20/2020 M47.22 Other spondylosis with radiculop athy, cervical region GLEN Harris 07/20/2020 G56.03 Carpal tunnel syndrome, bilatera l upper limbs GLEN Harris 07/20/2020 M43.12 Spondylolisthesis, cervical mark on GLEN Harris 07/20/2020 M47.892 Other spondylosis, cervical mark on GLEN Harris 07/20/2020 M50.321 Other cervical disc degeneration at C4-C5 level GLEN Harris 07/20/2020 M50.322 Other cervical disc degeneration at C5-C6 level GLEN Harris 07/19/2020 M47.22 Other spondylosis with radiculop athy, cervical region Nikki Savage, [employer] 07/08/2020 G56.03 Carpal tunnel syndrome, bilatera l upper limbs Kan Flores MD 07/08/2020 M43.12 Spondylolisthesis, cervical mark on Kan Flores MD 07/08/2020 M47.892 Other spondylosis, cervical mark on Kan Flores MD 07/08/2020 M50.321 Other cervical disc degeneration at C4-C5 level Kan Flores MD 07/08/2020 M50.322 Other cervical disc degeneration at C5-C6 level Kan Flores MD 05/18/2020 M54.2 Cervicalgia Curt Reeder, PA 05/18/2020 M54.12 Radiculopathy, cervical region Cyrus Mak, PA 03/25/2020 M47.22 Other spondylosis with radiculop athy, cervical region Nikki Savage, [employer] 03/25/2020 M50.321 Other cervical disc degeneration at C4-C5 level Nikik Savage, [employer] 03/25/2020 M50.322 Other cervical disc degeneration at C5-C6 level Nikki Savage, [employer] 03/22/2020 M47.22 Other spondylosis with radiculop athy, cervical region Dorota Singletary, FITNESS MANAGEMENT DIRECTOR 03/22/2020 M50.321 Other cervical disc degeneration at C4-C5 level Dorota Singletary, FITNESS MANAGEMENT DIRECTOR 03/22/2020 M50.322 Other cervical disc degeneration at C5-C6 level Dorota Singletary, FITNESS MANAGEMENT DIRECTOR 03/18/2020 M47.22 Other spondylosis with radiculop athy, cervical region Marielena Scee P.T.A. 03/18/2020 M50.321 Other cervical disc degeneration at C4-C5 level Marielena Scee P.T.A. 03/18/2020 M50.322 Other cervical disc degeneration at C5-C6 level Marielena Scee P.T.A. 03/15/2020 M47.22 Other spondylosis with radiculop athy, cervical region Marielena Scee P.T.A. 03/15/2020 M50.321 Other cervical disc degeneration at C4-C5 level Marielena Scee P.T.A. 03/15/2020 M50.322 Other cervical disc degeneration at C5-C6 level Marielena Scee P.T.A. 03/11/2020 M47.22 Other spondylosis with radiculop athy, cervical region Nikki Savage, [employer] 03/11/2020 M50.321 Other cervical disc degeneration at C4-C5 level Nikki Savage, [employer] 03/11/2020 M50.322 Other cervical disc degeneration at C5-C6 level Nikki Santosglen, MSPT 03/09/2020 M47.22 Other spondylosis with radiculop athy, cervical region Marielena Scee P.T.A. 03/09/2020 M50.321 Other cervical disc degeneration at C4-C5 level Marielena Scee P.T.A. 03/09/2020 M50.322 Other cervical disc degeneration at C5-C6 level Marielena Scee P.T.A. 03/04/2020 M47.22 Other spondylosis with radiculop athy, cervical region Marielena Scee P.T.A. 03/04/2020 M50.321 Other cervical disc degeneration at C4-C5 level Marielena Scee P.T.A. 03/04/2020 M50.322 Other cervical disc degeneration at C5-C6 level Marielena Scee P.T.A. 03/01/2020 M47.22 Other spondylosis with radiculop athy, cervical region Marielena Scee P.T.A. 03/01/2020 M50.321 Other cervical disc degeneration at C4-C5 level Marielena Scee P.T.A. 03/01/2020 M50.322 Other cervical disc degeneration at C5-C6 level Marielena Scee P.T.A. 02/26/2020 M47.22 Other spondylosis with radiculop athy, cervical region Marielena Scee P.T.A. 02/26/2020 M50.321 Other cervical disc degeneration at C4-C5 level Marielena Scee P.T.A. 02/26/2020 M50.322 Other cervical disc degeneration at C5-C6 level Marielena Scee P.T.A. 02/23/2020 M47.22 Other spondylosis with radiculop athy, cervical region Nikki Santosglen, MSPT 02/23/2020 M50.321 Other cervical disc degeneration at C4-C5 level Nikki Santosglen, MSPT 02/23/2020 M50.322 Other cervical disc degeneration at C5-C6 level Nikki Santosglen, MSPT 02/03/2020 M47.22 Other spondylosis with radiculop athy, cervical region Curt Reeder, GLEN 02/03/2020 M50.321 Other cervical disc degeneration at C4-C5 level GLEN Harris 02/03/2020 M50.322 Other cervical disc degeneration at C5-C6 level GLEN Harris Plan of Treatment 07/20/2020 - GLEN Harris* M47.22 Other spondylosis with radiculopathy, cervical region* New Medication:* Gabapentin 100 mg - 1 by mouth three times a day * Follow up:* 6-8 weeks with iid for med re-check * G56.03 Carpal tunnel syndrome, bilateral upper limbs * M43.12 Spondylolisthesis, cervical region * M47.892 Other spondylosis, cervical region * M50.321 Other cervical disc degeneration at C4-C5 level * M50.322 Other cervical disc degeneration at C5-C6 level Functional Status Description No Information Available Mental Status Description No Information Available Referrals Refer to Dr Reason for Referral Status Appt Date Curt Reeder I, Pac EMG NO AUTH REQUIRED TO SCHEDULING NT Creat ed [address] [place] [phone] Curt Reeder I, [place] PT PER B/S WEB APPROVAL FOR 10 VISITS ON C-SPINE TO PT DEPT. NT Created [address] [place] [phone]
--- OUTSIDE RECORDS SUMMARY | 2020-08-11 11:44 | CCD | Continuity of Care Document ---
Author Author Ana BURCIAGAC Organization Unknown Address [address] [facility], [place] [address] Phone [phone] Care Team Providers Care Maintenance Groundman Name Role Phone Govind Fernandez MD AUTM [phone] Gregg Newsome MD AUTM [phone] Problems Active Problems Provider Date Coronary arteriosclerosis TRISHA Chavez Onset: 08/13/2011 Old myocardial infarction TRISHA Chavez Onset: 08/13/2011 Patient post percutaneous transluminal coronary angiop lasty TRISHA Chavez Onset: 08/13/2011 Essential hypertension TRISHA Chavez Onset: Sinus node dysfunction Hannah Burciaga PA-C Onset: 6 Mitral valve disorder Hannah Burciaga PA-C Onset: 04/22/2015 Aortic valve disorder Hannah Burciaga PA-C Onset: 07/11/2015 Pure hypercholesterolemia TRISHA Chavez Onset: 08/13/2011 Chronic diastolic heart failure Hannah Burciaga PA-C Onset: 05/19/2020 Benign hypertensive heart disease with congestive card iac failure Hannah Burciaga PA-C Onset: 05/19/2020 Social History Type Date Description Comments Sex Unknown ETOH Use Consumes Wine couple glasses m onthly Tobacco Use Start: Unknown Patient has never smoked Smoking Status Reviewed: 08/08/20 Patient has never smoked Exercise Type/Frequency Does housework daily Exercise Type/Frequency Walks twice a week Exercise Limitations Back Pain Exercise Limitations Fatigue Exercise Limitations Orthopedic Problem Left corry ulder Exercise Limitations Palpitations Allergies, Adverse Reactions, Alerts Description No Known Drug Allergies Medications Active Medications SIG Qnty Indications Ordering Provide r Date Gabapentin 100mg Capsules 1 by mouth twice a day Unknown 08/07/2020 Famotidine 40mg Tablets 1 by mouth every day Gregg Newsome MD 05/18/2020 Amlodipine Besylate 2.5mg Tablets 1 by mouth every day 90tabs I11.0 Hannah Burciaga PA-C 05/18/2020 Torsemide 10mg Tablets 1 by mouth every day 90tabs I50.32 Hannah Burciaga PA-C 05/18/2020 Telmisartan 40mg Tablets 1 by mouth twice daily Govind Fernandez MD 05/18/[address] 1 by mouth every day I25.10 Sony Maxwell MD 11/05/2018 Vitamin D3 2000Unit Capsules 1 by mouth every day Unknown 05/05/2018 Vision Formula 2 2 Tablets 1 by mouth daily Unknown 11/01/2016 Fluticasone Propionate 50mcg/Act Suspension 1 spray each nostril daily as needed Unkn own 11/01/2016 Rosuvastatin Calcium 40mg Tablets 1 by mouth every day Unknown 05/01/2016 Risedronate Sodium 35mg Tablets 1 by mouth once weekly Gregg Newsome MD 04/21/2015 Miralax 3350NF Powder 1 tablespoon twice every day, as directed, as needed Gregg Newsome M D 10/20/2014 Docusate Sodium 100mg Capsules 1 by mouth twice a day Unknown 10/20/2014 Ditropan XL 10mg Tablets ER 24HR 1 po qd Govind Fernandez MD 07/31/2011 Nitrostat 0.4mg Tablets Sub 1 sl every 5min x3 as needed for chest pain 25tabs I25.10 Sony Maxwell MD 07/31/2011 Ibuprofen 200mg Capsules take 2 tablets as needed for pain Unknown Immunizations Description No Information Available Vital Signs Date Vital Result Comment 08/08/2020 10:29am Weight 163.00 lb Home Weight 160lb Home weight Height 64 inches 5'4" BMI (Body Mass Index) 28.0 kg/m2 Heart Rate 60 /min Regular Respiratory Rate 16 /min BP Systolic Right Arm 128 mmHg sitting, regular c uff BP Diastolic Right Arm 70 mmHg sitting, regular cuff 05/19/2020 3:13pm Weight 159.00 lb Home Weight 158lb Height 64 inches 5'4" BMI (Body Mass Index) 27.3 kg/m2 Heart Rate 68 /min Regular Respiratory Rate 16 /min BP Systolic Left Arm 126 mmHg sitting, regular cu ff BP Diastolic Left Arm 64 mmHg sitting, regular c uff BP Systolic Standing 126 mmHg sitting BP Diastolic Standing 60 mmHg sitting Results Test Acquired Date Facility Test Result H/L Range Note Basic Metabolic Profile 08/08/2020 [facility] [phone] Glucose, Fasting 110 mg/dL High 70-100 Blood Urea Nitrogen 26 mg/dL High 7-18 Creatinine For GFR 0.96 mg/dL Normal 0.55-1.30 Glomerular Filtration Rate > 60.0 Normal >45 1 Sodium Level 143 mEq/L Normal 136-145 Potassium Serum 4.5 mEq/L Normal 3.5-5.1 Chloride Level 107 mEq/L Normal 98-107 Carbon Dioxide Level 29 mEq/L Normal 21-32 Anion Gap 7 mEq/L Low 8-16 Calcium Level 10.7 mg/dL High 8.8-10.2 CBC With Differential 08/08/2020 [facility] [phone] White Blood Count 5.2 10 Normal 4.0-10.0 Red Blood Count 4.16 10 Normal 4.00-5.40 Hemoglobin 12.5 g/dL Normal 12.0-15.5 Hematocrit 39.3 % Normal 36.0-47.0 Mean Corpuscular Volume 94.5 fl Normal 80.0-96.0 Mean Corpuscular Hemoglobin 30.0 pg Normal 27.0-33.0 Mean Corpuscular HGB Conc 31.8 g/dL Low 32.0-36.5 Red Cell Distribution Width 12.9 % Normal 11.5-14.5 Platelet Count, Automated 189 10 Normal 150-450 Neutrophils % 65.5 % Normal 36.0-66.0 Lymph % 24.5 % Normal 24.0-44.0 Price % 6.7 % High 0.0-5.0 Eos % 2.7 % Normal 0.0-3.0 Baso % 0.4 % Normal 0.0-1.0 Immature Granulocyte % 0.2 % Normal 0-3.0 Nucleated Red Blood Cell % 0.0 % Normal 0-0 Neutrophils # 3.4 10 Normal 1.5-8.5 Lymph # 1.3 10 Low 1.5-5.0 Price # 0.4 10 Normal 0.0-0.8 Eos # 0.1 10 Normal 0.0-0.5 Baso # 0.0 10 Normal 0.0-0.2 Renal Profile 03/17/2020 [facility] - not interfaced (315)- - Glucose 97 70-100 Blood Urea Nitrogen 21 High 7-18 Creatinine 0.86 0.55-1.30 GFR (Calculated) >60.0 >45 Sodium 140 136-145 Potassium 4.4 3.5-5.1 Chloride 106 98-107 Carbon Dioxide 28 21-32 Calcium 9.8 8.8-10.2 Phosphorus 3.0 Albumin 4.0 3.2-5.2 Laboratory test finding 03/17/2020 [facility] - not interf aced (315)- - Magnesium Level 2.3 1.8-2.4 BMP 02/18/2020 [facility] (315)- - Calcium Ser/Plasma Mass/Vol 9.2 Sodium 145 Carbon Dioxide Ser/Plasm 26 Chloride Serum/Plasma 110 Potassium 4.0 Glucose 91 70-100 Blood Urea Nitrogen 16 5-21 Creatinine 0.69 0.6-1.5 G F R >60 Laboratory test finding 02/18/2020 [facility] (315)- - Troponin <0.05 CBC without Differential 02/18/2020 [facility] (315)- - White Blood Count 5.3 4.3-10.9 Red Blood Count 4.20 Low 4.70-6.20 Platelets 181 130-400 Hemoglobin 12.6 Low 13.0-17.0 Hematocrit 37.6 Low 39.0-50.0 Lipid Profile/Cardiac Risk Pro 02/18/2020 [facility] (315)- - Triglycerides 254 Cholesterol 162 120-200 HDL 56 40-60 LDL Cholesterol 55 Chol/HDL Ratio 2.9 1 Units are mL/min/1.73 m2 Chronic Kidney Disease Staging per NKF: Stage I & II GFR >=60 Normal to Mildly Decreased Stage III GFR 30-59 Moderately Decreased Stage IV GFR 15-29 Severely Decreased Stage V GFR <15 Very Little GFR Left ESRD GFR <15 on LARGE ENGINE ASSEMBLER Procedures Date Code Description Status 07/22/2020 76540 Holter Monitor MD Review And Rep ort Completed 07/22/2020 13091 Holter Hookup,Recording,Disconne ct Completed 05/19/2020 05739 ECG 12-Lead Completed Medical Devices Description No Information Available Encounters Type Date Location Provider Dx Diagnosis Office Visit 08/08/2020 10:15a Main Office Hannah Burciaga PA-C I49.5 Sick sinus syndrome Office Visit 05/19/2020 3:00p Main Office Hannah Burciaga PA-C I25.1 0 Athscl heart disease of [place] coronary artery w/o ang pctrs I25.2 Old myocardial infarction Z95.5 Presence of coronary angiopl asty implant and graft I50.32 Chronic diastolic (congestiv e) heart failure I11.0 Hypertensive heart disease w ith heart failure I35.8 Other nonrheumatic aortic va lve disorders I34.0 Nonrheumatic mitral (valve) insufficiency I49.5 Sick sinus syndrome E78.00 Pure hypercholesterolemia, u nspecified Assessments Date Code Description Provider 08/08/2020 I49.5 Sick sinus syndrome Hannah denson PA-C 07/22/2020 I49.5 Sick sinus syndrome Holter/Event /Telemetry 05/19/2020 I25.10 Atherosclerotic heart disease of [place] coronary artery with Hannah Burciaga PA-C 05/19/2020 I25.2 Old myocardial infarction Hannah Burciaga PA-C 05/19/2020 Z95.5 Presence of coronary angioplasty implant and graft RICK CarverC 05/19/2020 I50.32 Chronic diastolic (congestive) h eart failure Hannah Burciaga PA-C 05/19/2020 I11.0 Hypertensive heart disease with heart failure RICK CarverC 05/19/2020 I35.8 Other nonrheumatic aortic valve disorders Hannah Burciaga PA-C 05/19/2020 I34.0 Nonrheumatic mitral (valve) insu fficiency RICK CarverC 05/19/2020 I49.5 Sick sinus syndrome RICK PalomaresC 05/19/2020 E78.00 Pure hypercholesterolemia, unspe cified Hannah Burciaga PA-C Plan of Treatment Future Appointment(s):* 08/08/2021 9:45 am - Hannah Burciaga PA-C at Main Office * 11/17/2020 9:45 am - Hannah Burciaga PA-C at Main Office 08/08/2020 - Hannah Burciaga PA-C* I49.5 Sick sinus syndrome * All * Follow up:* Wound check one year post pacemaker implant. Functional Status Functional Condition Comment Date Status Independent with all ADL's Activ e Mental Status Description No Information Available Referrals Description No Information Available
--- OUTSIDE RECORDS SUMMARY | 2020-08-11 11:44 | CCD | Continuity of Care Document ---
Author Author Ana REEDER Organization Unknown Address [address] [place] [address] Phone [phone] Care Team Providers Care Picture Hanger Name Role Phone Gregg Newsome MD AUTM [phone] Govind Freeman AUTM [phone] Problems Active Problems Provider Date Essential hypertension JEWELS Harris Onset: 12/03/2019 Pure hypercholesterolemia JEWELS Harris Onset: 020 Social History Type Date Description Comments Sex Unknown ETOH Use Occasionally consumes alcohol Tobacco Use Start: Unknown Patient has never smoked Allergies, Adverse Reactions, Alerts Description No Known Drug Allergies Medications Active Medications SIG Qnty Indications Ordering Provide r Date Gabapentin 100mg Capsules 1 by mouth three times a day 90caps M54.12 Jones Gorman MD 07/20/2020 Levocetirizine Dihydrochloride 5mg [...] Available Procedures Date Code Description Status 07/08/2020 30957 Nerve Conduction 9-10 Studies Co mpleted 07/08/2020 52545 Needle Electromyography,Complete Five Or More Muscles Studied Completed 03/25/2020 46316 Manual Therapy Each 15 Minutes C ompleted 03/22/2020 45111 Manual Therapy Each 15 Minutes C ompleted 03/22/2020 78650 Therapeutic Procedure, Each 15 M inutes Completed 03/18/2020 56926 Manual Therapy Each 15 Minutes C ompleted 03/18/2020 15922 Therapeutic Procedure, Each 15 M inutes Completed 03/15/2020 65020 Manual Therapy Each 15 Minutes C ompleted 03/15/2020 80462 Therapeutic Procedure, Each 15 M inutes Completed 03/11/2020 18288 Manual Therapy Each 15 Minutes C ompleted 03/11/2020 01692 Therapeutic Procedure, Each 15 M inutes Completed 03/09/2020 82430 Therapeutic Procedure, Each 15 M inutes Completed 03/09/2020 45583 Manual Therapy Each 15 Minutes C ompleted 03/04/2020 30279 Manual Therapy Each 15 Minutes C ompleted 03/04/2020 18975 Therapeutic Procedure, Each 15 M inutes Completed 03/01/2020 85240 Manual Therapy Each 15 Minutes C ompleted 03/01/2020 88265 Therapeutic Procedure, Each 15 M inutes Completed 02/26/2020 97096 Manual Therapy Each 15 Minutes C ompleted 02/26/2020 78416 Therapeutic Procedure, Each 15 M inutes Completed 02/23/2020 52502 Physical Therapy Eval - Low Comp lexity Completed 07/01/2019 357498229 Bone Mineral Density Test Comple donnie 07/01/2014 81736172 Colonoscopy Completed Medical Devices Description No Information Available Encounters Type Date Location Provider Dx Diagnosis Office Visit 07/20/2020 3:30p [place] M50.321 Other cervical disc degeneration at C4-C5 level M50.322 Other cervical disc degenera tion at C5-C6 level M54.12 Radiculopathy, cervical mark on Office Visit 07/08/2020 2:30p [place] Kan Flores MD G56.02 Carpal tunnel syndrome, left upper limb M43.12 Spondylolisthesis, cervical region M47.892 Other spondylosis, cervical region M50.321 Other cervical disc degenera tion at C4-C5 level M50.322 Other cervical disc degenera tion at C5-C6 level Office Visit 05/18/2020 5:15p [place] M54.2 Cervicalgia M54.12 Radiculopathy, cervical mark on Office Visit 02/03/2020 9:45a [place] M47.22 Other spondylosis with radiculopathy, cervical region M50.321 Other cervical disc degenera tion at C4-C5 level M50.322 Other cervical disc degenera tion at C5-C6 level Assessments Date Code Description Provider 07/20/2020 M50.321 Other cervical disc degeneration at C4-C5 level JEWELS Harris 07/20/2020 M50.322 Other cervical disc degeneration at C5-C6 level JEWELS Harris 07/20/2020 M54.12 Radiculopathy, cervical region I JEWELS Mak 07/19/2020 M47.22 Other spondylosis with radiculop athy, cervical region [facility], [facility] 07/08/2020 G56.02 Carpal tunnel syndrome, left upp er limb Kan Flores MD 07/08/2020 M43.12 Spondylolisthesis, cervical mark on Kan Flores MD 07/08/2020 M47.892 Other spondylosis, cervical mark on Kan Flores MD 07/08/2020 M50.321 Other cervical disc degeneration at C4-C5 level Kan Flores MD 07/08/2020 M50.322 Other cervical disc degeneration at C5-C6 level Kan Flores MD 05/18/2020 M54.2 Cervicalgia JEWELS Harris 05/18/2020 M54.12 Radiculopathy, cervical region I JEWELS Mak 03/25/2020 M47.22 Other spondylosis with radiculop athy, cervical region Nikki Savage, [facility] 03/25/2020 M50.321 Other cervical disc degeneration at C4-C5 level Nikki Savage, [facility]SP[facility] 03/25/2020 M50.322 Other cervical disc degeneration at C5-C6 level Nikki Savage, [facility] 03/22/2020 M47.22 Other spondylosis with radiculop athy, cervical region Dorota Singletary, [employer] 03/22/2020 M50.321 Other cervical disc degeneration at C4-C5 level Dorota Singletary, [employer] PROGRAMMER 03/22/2020 M50.322 Other cervical disc degeneration at C5-C6 level Dorota Singletary, ASSOCI[employer] PROGRAMMER 03/18/2020 M47.22 Other spondylosis with radiculop athy, [...] with radiculop athy, cervical region [facility], [facility] 03/11/2020 M50.321 Other cervical disc degeneration at C4-C5 level Nikki Savage, [facility]SP[facility] 03/11/2020 M50.322 Other cervical disc degeneration at C5-C6 level Nikki Savage, [facility] 03/09/2020 M47.22 Other spondylosis with radiculop athy, cervical region Marielena Scee P.T.A. 03/09/2020 M50.321 Other cervical disc degeneration at C4-C5 level Marielena Scee P.T.A. 03/09/2020 M50.322 Other cervical disc degeneration at C5-C6 level Marielena Scee P.T.A. 03/04/2020 M47.22 Other spondylosis with radiculop athy, cervical region Marielena Scee P.T.A. 03/04/2020 M50.321 Other cervical disc degeneration at C4-C5 level [facility] Scee P.T.A. 03/04/2020 M50.322 Other cervical disc degeneration at C5-C6 level Marielena Scee P.T.A. 03/01/2020 M47.22 Other spondylosis with radiculop athy, cervical region [facility] Scee P.T.A. 03/01/2020 M50.321 Other cervical disc degeneration at C4-C5 level [facility] Scee P.T.A. 03/01/2020 M50.322 Other cervical disc degeneration at C5-C6 level Marielena Scee P.T.A. 02/26/2020 M47.22 Other spondylosis with radiculop athy, cervical region [facility] Scee P.T.A. 02/26/2020 M50.321 Other cervical disc degeneration at C4-C5 level [facility] Scee P.T.A. 02/26/2020 M50.322 Other cervical disc degeneration at C5-C6 level [facility] Scee P.T.A. 02/23/2020 M47.22 Other spondylosis with radiculop athy, cervical region Nikki SwartzNicolle Savage, [facility] 02/23/2020 M50.321 Other cervical disc degeneration at C4-C5 level Nikki SheridanNicolle Savage, [facility] 02/23/2020 M50.322 Other cervical disc degeneration at C5-C6 level Nikki SheridanNicolle Savage, [facility] 02/03/2020 M47.22 Other spondylosis with radiculop athy, cervical region JEWELS Harris 02/03/2020 M50.321 Other cervical disc degeneration at C4-C5 level JEWELS Harris 02/03/2020 M50.322 Other cervical disc degeneration at C5-C6 level JEWELS Harris Plan of Treatment 07/20/2020 - JEWELS Harris* M50.321 Other cervical disc degeneration at C4- C5 level * M50.322 Other cervical disc degeneration at C5-C6 level * M54.12 Radiculopathy, cervical region* New Medication:* Gabapentin 100 mg - 1 by mouth three times a day * Follow up:* 6-8 weeks with IID for med re-check Functional Status Description No Information Available Mental Status Description No Information Available Referrals Refer to Reason for Referral Status Appt Date Curt Reeder I, Pac EMG NO AUTH REQUIRED TO SCHEDULING NT Creat ed [address] [facility] [address] [place] [id number] [phone] Curt Reeder I, Pac PT PER B/S WEB APPROVAL FOR 10 VISITS ON C-SPINE TO PT DEPT. NT Created [address] [facility] [address] [place] [phone]
--- OUTSIDE RECORDS SUMMARY | 2020-08-11 11:44 | CCD | Continuity of Care Document ---
Author Author Ana BURCIAGAC Organization Unknown Address [address] [facility] [place] [address] Phone [phone] Care Team Providers Care Shipyard Supervisor Name Role Phone Govind Fernandez MD AUTM [phone] Gregg Newsome MD AUTM [phone] Problems Active Problems Provider Date Coronary arteriosclerosis [...] Date Facility Test Result H/L Range Note Renal Profile 03/17/2020 [facility] - not interfaced (315)- - Glucose 97 70-100 Blood Urea Nitrogen 21 High 7-18 Creatinine 0.86 0.55-1.30 GFR (Calculated) >60.0 >45 Sodium 140 136-145 Potassium 4.4 3.5-5.1 Chloride 106 98-107 Carbon Dioxide 28 21-32 Calcium 9.8 8.8-10.2 Phosphorus 3.0 Albumin 4.0 3.2-5.2 Laboratory test finding 03/17/2020 [facility] - not interf aced (315)- - Magnesium [...] 40-60 LDL Cholesterol 55 Chol/HDL Ratio 2.9 Procedures Date Code Description Status 07/22/2020 36461 Holter Monitor MD Review And Rep ort Completed 07/22/2020 92267 Holter Hookup,Recording,Disconne ct Completed 05/19/2020 90738 ECG 12-Lead Completed Medical Devices Description No Information Available Encounters Type Date Location Provider Dx Diagnosis Office Visit 08/08/2020 10:15a Main Office Hannah Burciaga PA-C I49.5 Sick sinus syndrome Office Visit 05/19/2020 3:00p Main Office Hannah Burciaga PA-C I25.1 0 Athscl heart disease of [place] coronary artery w/o ang pctrs I25.2 Old [...] /Telemetry 05/19/2020 I25.10 Atherosclerotic heart disease of [place] coronary artery with Hannah Burciaga PA-C 05/19/2020 I25.2 Old myocardial infarction RICK CarverC 05/19/2020 Z95.5 Presence of coronary angioplasty implant and graft Hannah Burciaga PA-C 05/19/2020 I50.32 Chronic diastolic (congestive) h eart failure RICK CarverC 05/19/2020 I11.0 Hypertensive heart disease with heart failure Hannah Burciaga PA-C 05/19/2020 I35.8 Other nonrheumatic aortic valve disorders RICK CarverC 05/19/2020 I34.0 Nonrheumatic mitral (valve) insu fficiency RICK CarverC 05/19/2020 I49.5 Sick sinus syndrome Hannah denson PA-C 05/19/2020 E78.00 Pure hypercholesterolemia, unspe cified Hannah Burciaga PA-C Plan of Treatment Future Appointment(s):* 11/17/2020 9:45 am - Hannah Burciaga PA-C at Main Office 08/08/2020 - Hannah Burciaga PA-C* I49.5 Sick sinus syndrome* New Labs:* Basic Metabolic Profile, Scheduled: 08/08/20 * CBC With Differential, Scheduled: 08/08/20 * All * Follow up:* Wound check one year post pacemaker implant. Functional Status Functional Condition Comment Date Status Independent with all ADL's Activ e Mental Status Description No Information Available Referrals Description No Information Available
--- OUTSIDE RECORDS SUMMARY | 2020-08-11 11:44 | CCD | Continuity of Care Document ---
Author Author Holter/Event/TelemetryYeni Organization Unknown Address [address], [place] [address] Phone [phone] Care Team Providers Care Control Manager Name Role Phone Govind Fernandez MD AUTM [phone] Gregg Newsome MD AUTM [phone] Problems Active Problems Provider Date Coronary arteriosclerosis TRISHA Chavez Onset: 08/13/2011 Old myocardial infarction TRISHA Chavez Onset: 08/13/2011 Patient post percutaneous transluminal coronary angiop lasty TRISHA Chavez Onset: 08/13/2011 Essential hypertension TRISHA Chavez Onset: Sinus node dysfunction Hannah Christian PA-C Onset: 6 Mitral valve disorder Hannah Christian PA-C Onset: 04/22/2015 Aortic valve disorder Hannah Christian PA-C Onset: 07/11/2015 Pure hypercholesterolemia TRISHA Chavez Onset: 08/13/2011 Chronic diastolic heart failure Hannah Christian PA-C Onset: 05/19/2020 Benign hypertensive heart disease with congestive card iac failure Hannah Christian PA-C Onset: 05/19/2020 Social History Type Date Description Comments Sex Unknown ETOH Use Consumes Wine couple glasses m onthly Tobacco Use Start: Unknown Patient has never smoked Smoking Status Reviewed: 05/19/20 Patient has never smoked Exercise Type/Frequency Does housework daily Exercise Type/Frequency Walks twice a week Exercise Limitations Back Pain Exercise Limitations Fatigue Exercise Limitations Orthopedic Problem left ank le sprain Exercise Limitations Palpitations Allergies, Adverse Reactions, Alerts Description No Known Drug Allergies Medications Active Medications SIG Qnty Indications Ordering Provide r Date Famotidine 40mg Tablets 1 by mouth every day Gregg Newsome MD 05/18/2020 Amlodipine Besylate 2.5mg Tablets 1 by mouth every day 90tabs I11.0 Hannah Christian PA-C 05/18/2020 Torsemide 10mg Tablets 1 by mouth every day 90tabs I50.32 Hannah Christian PA-C 05/18/2020 Telmisartan 40mg Tablets 1 by mouth twice daily Govind Fernandez MD 05/18/[address] 1 by mouth every day I25.10 Sony Maxwell MD 11/05/2018 Levocetirizine Dihydrochloride 5mg Tablets 1 by mouth every night at bedtime Unknown 11/04/2018 Vitamin D3 2000Unit Capsules 1 by mouth [...] Available Vital Signs Date Vital Result Comment 05/19/2020 3:13pm Weight 159.00 lb Home Weight 158lb Height 64 inches 5'4" BMI (Body Mass Index) 27.3 kg/m2 Heart Rate 68 /min Regular Respiratory Rate 16 /min BP Systolic Left Arm 126 mmHg sitting, regular cu ff BP Diastolic Left Arm 64 mmHg sitting, regular c uff BP Systolic Standing 126 mmHg sitting BP Diastolic Standing 60 mmHg sitting 11/04/2019 9:32am Weight 165.00 lb Home Weight 164lb home weight Height 64 inches 5'4" BMI (Body Mass Index) 28.3 kg/m2 Heart Rate 68 /min Regular Respiratory Rate 16 /min BP Systolic Right Arm 130 mmHg sitting, regular c uff BP Diastolic Right Arm 80 mmHg sitting, regular cuff BP Systolic Left Arm 134 mmHg sitting BP Diastolic Left Arm 80 mmHg sitting Results Test Acquired Date Facility Test Result H/L Range Note Renal Profile 03/17/2020 [facility] - not interfaced (315)- - Glucose 97 70-100 Blood Urea Nitrogen 21 High 7-18 Creatinine 0.86 0.55-1.30 GFR (Calculated) >60.0 >45 Sodium 140 136-145 Potassium 4.4 3.5-5.1 Chloride 106 98-107 Carbon Dioxide 28 21-32 Calcium 9.8 8.8-10.2 Phosphorus 3.0 Albumin 4.0 3.2-5.2 Laboratory test finding 03/17/2020 [facility] - not interf aced (315)- - Magnesium Level 2.3 1.8-2.4 BMP 02/18/2020 [facility] (315)- - Calcium Ser/Plasma Mass/Vol 9.2 Sodium 145 Carbon Dioxide Ser/Plasm 26 Chloride Serum/Plasma 110 Potassium 4.0 Glucose 91 70-100 Blood Urea Nitrogen 16 5-21 Creatinine 0.69 0.6-1.5 G F R >60 Laboratory test finding 02/18/2020 [facility] (315)- - Troponin <0.05 CBC without Differential 02/18/2020 [facility] ([facility])- - White Blood Count 5.3 4.3-10.9 Red Blood Count 4.20 Low 4.70-6.20 Platelets 181 130-400 Hemoglobin 12.6 Low 13.0-17.0 Hematocrit 37.6 Low 39.0-50.0 Lipid Profile/Cardiac Risk Pro 02/18/2020 [facility] (315)- - Triglycerides 254 Cholesterol 162 120-200 HDL 56 40-60 LDL Cholesterol 55 Chol/HDL Ratio 2.9 Procedures Date Code Description Status 05/19/2020 06639 ECG 12-Lead Completed Medical Devices Description No Information Available Encounters Type Date Location Provider Dx Diagnosis Office Visit 05/19/2020 3:00p Main Office Hannah Christian PA-C I25.1 0 Athscl heart disease of [place] coronary artery w/o ang pctrs I25.2 Old myocardial infarction Z95.5 Presence of coronary angiopl asty implant and graft I50.32 Chronic diastolic (congestiv e) heart failure I11.0 Hypertensive heart disease w ith heart failure I35.8 Other nonrheumatic aortic va lve disorders I34.0 Nonrheumatic mitral (valve) insufficiency I49.5 Sick sinus syndrome E78.00 Pure hypercholesterolemia, u nspecified Assessments Date Code Description Provider 05/19/2020 I25.10 Atherosclerotic heart disease of [place] coronary artery with Hannah Christian PA-C 05/19/2020 I25.2 Old myocardial infarction Hannah Christian PA-C 05/19/2020 Z95.5 Presence of coronary angioplasty implant and graft Hnanah Christian PA-C 05/19/2020 I50.32 Chronic diastolic (congestive) h eart failure Hannah Christian PA-C 05/19/2020 I11.0 Hypertensive heart disease with heart failure Hannah Christian PA-C 05/19/2020 I35.8 Other nonrheumatic aortic valve disorders Hannah Christian PA-C 05/19/2020 I34.0 Nonrheumatic mitral (valve) insu fficiency Hannah Christian PA-C 05/19/2020 I49.5 Sick sinus syndrome Hannah denson PA-C 05/19/2020 E78.00 Pure hypercholesterolemia, unspe cified Hannah Christian PA-C Plan of Treatment Future Appointment(s):* 11/17/2020 9:45 am - Hannah Christian PA-C at Main Office 05/19/2020 - Hannah Christian PA-C* I25.10 Atherosclerotic heart disease of [place] coronary artery with * I25.2 Old myocardial infarction * Z95.5 Presence of coronary angioplasty implant and graft * I50.32 Chronic diastolic (congestive) heart failure* Recommendations:* Follow a 2 grams sodium diet and 50 ounces fluid restriction per 24 hour and do daily weights. Call the office for weight gain of 3 lbs or more. * I11.0 Hypertensive heart disease with heart failure * I35.8 Other nonrheumatic aortic valve disorders * I34.0 Nonrheumatic mitral (valve) insufficiency * I49.5 Sick sinus syndrome* New Orders:* Holter Monitor, Scheduled: 07/21/20 * E78.00 Pure hypercholesterolemia, unspecified * All * Follow up:* 6 month follow up. Functional Status Functional Condition Comment Date Status Independent with all ADL's Activ e Mental Status Description No Information Available Referrals Description No Information Available
--- OUTSIDE RECORDS SUMMARY | 2020-08-11 11:45 | CCD ---
Author Author [facility] Organization [facility] Address Unknown Phone Unavailable Care Team Providers Care Rotary Drill Operator Helper Name Role Phone Gregg Newsome Unavailable PROBLEMS Type Condition ICD9-CM Code [id number] Code Onset Dates Condition S tatus SNOMED Code Notes Problem Mixed hyperlipidemia E78.2 Active 430110170 Problem Essential (primary) hypertension I10 Active 42279720 Problem Urge incontinence N39.41 Active 33349649 Problem Vitamin D deficiency, unspecified E55.9 Active 77177516 Problem Breast cancer screening Z12.39 Active 12482821 8 Problem Osteopenia M85.80 Active 195347826 Problem Multifocal atrial tachycardia I47.1 Active 49 678359 Problem Venous insufficiency of both lower extremities I87 .2 Active 278206322 Problem Colon cancer screening Z12.11 Active 304105115 Problem Non-seasonal allergic rhinitis, unspecified trigger J30.89 Active 67156603 Problem IFG (impaired fasting glucose) R73.01 Active 3 76823367 Problem Chronic leukopenia D72.819 Active 41601904 Problem CAD (coronary artery disease) I25.10 Active 53 824786 Problem Constipation, chronic K59.09 Active 622448331 Problem Lumbar spondylosis M47.816 Active 683009760 Problem Gastro-esophageal reflux K21.9 Active 4062868 09 Problem Chronic maxillary sinusitis J32.0 Active 3592 3002 ALLERGIES No Known Allergies ENCOUNTERS from 1955 to 2020-06-30 Encounter Location Date Provider Diagnosis [address] [place] [address] 30 May, 020 Gregg Jerod IMMUNIZATIONS Vaccine Route Administration Date Status Influenza (18 yrs & older) Flublok IM Intramuscular May 26, 2018 Administered Pneumococcal 0.5mL (Prevnar 13) IM Intramuscular January 07, 2018 Administered Influenza (6mo & up) Fluzone IM Intramuscular Apr 23, 2016 Ad ministered Influenza (6mo & up) Fluzone IM Intramuscular May 07, 2011 Ad ministered SOCIAL HISTORY Tobacco Use: Social History Observation Description Date Details (start date - stop date) Never Smoker Sex Assigned At : Social History Observation Description Sex Assigned At Unknown Education: Question Answer Notes Level of Education: College Language: Question Answer Notes Languages spoken: Uzbek Zoroastrianism: Question Answer Notes Zoroastrianism 21 [employer] Sexual Hx: Question Answer Notes Had sex in the last 12 months (vaginal, oral, or anal)? No Have you ever had an STD? No Alcohol Screening: Question Answer Notes Did you have a drink containing alcohol in the past year? Ye s Points 2 Interpretation Negative How often did you have six or more drinks on one occas ion in the past year? Never (0 points) How many drinks did you have on a typica l day when you were drinking in the past year? 1 or 2 (0 points) How often did you have a drink containing alcohol in t he past year? Two to four times a month (2 points) Tobacco Use: Question Answer Notes Are you a: never smoker REASON FOR REFERRAL No Information VITAL SIGNS No information MEDICATIONS Medication SIG (Take, Route, Frequency, Duration) Notes Start Da te End Date Status COMPRESSION STOCKINGS 15-20 mmHg as directed _ Daily for _ Active Levocetirizine Dihydrochloride 5 MG 1 tablet in the ev ening Orally at bedtime for 90 Active Famotidine 40 MG TAKE ONE TABLET BY MOUTH AT BEDTIME for 90 Active Ibuprofen 200 MG 2 tablets with food or milk as needed Orally Daily prn lumbar pain Active Nitrostat 0.4 MG 1 tablet under the tongue an d allow to dissolve as needed Sublingual As needed every 5 minutes x3 if no relief go to the ER Active MiraLax . 17 Orally bid for 90 day(s) Active Actonel 35 MG 1 tablet Orally weekly for 90 day(s) Active Ocuvite Adult Formula - Orally A ctive Colace 100 mg 1 capsule as needed Orally Twice a day Active Prolite Ankle Stirrup Brace - as directed L once daily for 30 Da ys Aug, Active Telmisartan 80 MG 1/2 tablet Orally bid for 90 day(s) 01 O 2019 Active Aspir-Low 81 MG 1 tablet Orally Once a day Active [facility] Fluticasone Propionate 50 MCG/ACT 2 sprays in each nostril Nasally every morning for 90 day(s) Active Rosuvastatin Calcium 40 MG 1 tablet Orally Once a day for 90 day(s) Active Rosuvastatin Calcium 40 MG 1 tablet Orally Once a day for 30 Active Oxybutynin Chloride ER 10 MG TAKE ONE TABLET BY MOUTH AT BEDTIME for 90 Active Vitamin D3 2000 UNIT 1 capsule Orally Once a day 12 Dec, 018 Active Losartan Potassium 50 MG 1 tablet Orally Once a day for 30 Active Oxybutynin Chloride 10 mg 1 tab Orally once a day for 90 day(s) Active Multi-Vitamin otc 1 tab Orally Once a day Active PROCEDURES No Information RESULTS No Results REASON FOR VISIT refill-actonel MEDICAL (GENERAL) HISTORY Type Description Date Medical History CAD s/p NSTEMI s/p JUAN to mi d LAD and proximal first diagonal wggoty-[place]-1/2012/07/2017 NST normal perfusion SPECT-[place] Medical History trace MR/AR, grade 1 diastol ic dysfiunction, mild LVH by 11/2017 TTE-[place] Medical History hyperlipidemia 2B Medical History impaired fasting glucose Medical History osteopenia Medical History overweight Medical History overactive bladder Medical History headaches, migrainous Medical History leukopenia, chronic Medical History needlestick injury May 29, 2010 from hep [facility] negative hepatitis B surface antigen, Reanna Ab and HIV antibody,11/2010 negativeHCV RNA-released by Mikaela-ID Medical History osteopenia Medical History hypertension Medical History allergic rhinitis-10/2018 - zone1 Surgical History [id number]-uinwws-Bxsfifkzo 03/2005, 11/30 015 Surgical History LUKE/BSO 1985 Surgical History appendectomy 1985 Surgical History [facility] 1987 Surgical History left breast biopsy negative-Effie Aug ch 2006 Surgical History 1979 Hospitalization History as above Hospitalization History Pt. passed out at work 04/28/18 Goals Section No Information Health Concerns No Information MEDICAL EQUIPMENT No Information MENTAL STATUS No Information FUNCTIONAL STATUS No Information ASSESSMENTS No Information PLAN OF TREATMENT Medication Medication Name Sig Start Date Stop Date Prolite Ankle Stirrup Brace - as directed L once daily for 30 Da ys Aug, Losartan Potassium 50 MG 1 tablet Orally Once a day for 30 MiraLax . 17 Orally bid for 90 day(s) Colace 100 mg 1 capsule as needed Orally Twice a day Oxybutynin Chloride ER 10 MG TAKE ONE TABLET BY MOUTH AT BEDTIME for 90 Actonel 35 MG 1 tablet Orally weekly for 90 day(s) Telmisartan 80 MG 1/2 tablet Orally bid for 90 day(s) Mar, Famotidine 40 MG TAKE ONE TABLET BY MOUTH AT BEDTIME for 90 Vitamin D3 2000 UNIT 1 capsule Orally Once a day Dec, Oxybutynin Chloride 10 mg 1 tab Orally once a day for 90 day(s) [facility] Fluticasone Propionate 50 MCG/ACT 2 sprays in each nostril Nasally every morning for 90 day(s) Aspir-Low 81 MG 1 tablet Orally Once a day Ibuprofen 200 MG 2 tablets with food or milk as needed Orally Daily prn lumbar pain Rosuvastatin Calcium 40 MG 1 tablet Orally Once a day for 90 day (s) Levocetirizine Dihydrochloride 5 MG 1 tablet in the ev ening Orally at bedtime for 90 Multi-Vitamin otc 1 tab Orally Once a day Nitrostat 0.4 MG 1 tablet under the tongue an d allow to dissolve as needed Sublingual As needed every 5 minutes x3 if no relief go to the ER COMPRESSION STOCKINGS 15-20 mmHg as directed _ Daily for _ Next Appt Details Provider Name:Gregg Newsome, 2020-08-29 0 3:00:00 PM, [facility] [place], [address], Insurance Providers Payer Name Payer Address Payer Phone Insured Name Patient Relati onship to Insured Coverage Start Date Coverage End Date MEDICARE BLUE PPO [address] [address] JAZ MCKEON self
--- OUTSIDE RECORDS SUMMARY | 2020-08-11 11:45 | CCD | Continuity of Care Document ---
Author Author Ana MATHIS MD Organization Unknown Address [address] [place] [address], [address] [address] Phone [phone] Care Team Providers Care Teacher Of Gifted Students Name Role Phone Gregg Newsome MD AUTM [phone] Govind Freeman AUTM [phone] Problems Active Problems Provider Date Essential hypertension GLEN Harris Onset: 12/03/2019 Pure hypercholesterolemia GLEN Harris Onset: 020 Social History Type Date Description Comments Sex Unknown ETOH Use Occasionally consumes alcohol Tobacco Use Start: Unknown Patient has never smoked Allergies, Adverse Reactions, Alerts Description No Known Drug Allergies Medications Active Medications SIG Qnty Indications Ordering Provide r Date Levocetirizine Dihydrochloride 5mg Tablets Gregg Newsome MD [...] Information Available Procedures Date Code Description Status 03/25/2020 57440 Manual Therapy Each 15 Minutes C ompleted 03/22/2020 51011 Manual Therapy Each 15 Minutes C ompleted 03/22/2020 54481 Therapeutic Procedure, Each 15 M inutes Completed 03/18/2020 47312 Manual Therapy Each 15 Minutes C ompleted 03/18/2020 50789 Therapeutic Procedure, Each 15 M inutes Completed 03/15/2020 30694 Manual Therapy Each 15 Minutes C ompleted 03/15/2020 48796 Therapeutic Procedure, Each 15 M inutes Completed 03/11/2020 69641 Manual Therapy Each 15 Minutes C ompleted 03/11/2020 62974 Therapeutic Procedure, Each 15 M inutes Completed 03/09/2020 14356 Therapeutic Procedure, Each 15 M inutes Completed 03/09/2020 56185 Manual Therapy Each 15 Minutes C ompleted 03/04/2020 16936 Manual Therapy Each 15 Minutes C ompleted 03/04/2020 84553 Therapeutic Procedure, Each 15 M inutes Completed 03/01/2020 52645 Manual Therapy Each 15 Minutes C ompleted 03/01/2020 51182 Therapeutic Procedure, Each 15 M inutes Completed 02/26/2020 03770 Manual Therapy Each 15 Minutes C ompleted 02/26/2020 05609 Therapeutic Procedure, Each 15 M inutes Completed 02/23/2020 08890 Physical Therapy Eval - Low Comp lexity Completed 07/01/2019 535228261 Bone Mineral Density Test Comple donnie 07/01/2014 20832824 Colonoscopy Completed Medical Devices Description No Information Available Encounters Type Date Location Provider Dx Diagnosis Office Visit 05/18/2020 5:15p Alva GLEN Harris M54.2 Cervicalgia M54.12 Radiculopathy, cervical mark on Office Visit 02/03/2020 9:45a Alva GLEN Harris M47.22 Other spondylosis with radiculopathy, cervical region M50.321 Other cervical disc degenera tion at C4-C5 level M50.322 Other cervical disc degenera tion at C5-C6 level Assessments Date Code Description Provider 07/08/2020 G56.03 Carpal tunnel syndrome, bilatera l upper limbs Kan Mathis MD 07/08/2020 M43.12 Spondylolisthesis, cervical mark on Kan Mathis MD 07/08/2020 M47.892 Other spondylosis, cervical mark on Kan Mathis MD 07/08/2020 M50.321 Other cervical disc degeneration at C4-C5 level Kan Mathis MD 07/08/2020 M50.322 Other cervical disc degeneration at C5-C6 level Kan Mathis MD 05/18/2020 M54.2 Cervicalgia Curt Reeder, PA 05/18/2020 M54.12 Radiculopathy, cervical region I khadar Reeder, PA 03/25/2020 M47.22 Other spondylosis with radiculop athy, cervical region Nikki Savage, [facility] 03/25/2020 M50.321 Other cervical disc degeneration at C4-C5 level Nikki Savage, [facility] 03/25/2020 M50.322 Other cervical disc degeneration at C5-C6 level Nikki Savage, [facility] 03/22/2020 M47.22 Other spondylosis with radiculop athy, cervical region Dorota Singletary, MEDICAL RECORD ADMINISTRATOR 03/22/2020 M50.321 Other cervical disc degeneration at C4-C5 level Dorota Singletary, MEDICAL RECORD ADMINISTRATOR 03/22/2020 M50.322 Other cervical disc degeneration at C5-C6 level Dorota Singletary, MEDICAL RECORD ADMINISTRATOR 03/18/2020 M47.22 Other spondylosis with radiculop athy, [...] radiculop athy, cervical region Nikki Savage, MSPT 03/11/2020 M50.321 Other cervical disc degeneration at [...] with radiculop athy, cervical region GLEN Harris 02/03/2020 M50.321 Other cervical disc degeneration at C4-C5 level GLEN Harris 02/03/2020 M50.322 Other cervical disc degeneration at C5-C6 level GLEN Harris Plan of Treatment 07/08/2020 - Kan Mathis MD* G56.03 Carpal tunnel syndrome, bilateral upper limbs* Follow up:* with IID for results * M43.12 Spondylolisthesis, cervical region * M47.892 [...] REQUIRED TO SCHEDULING NT Creat ed [address] [facility] [address] [place] [address] [phone] Curt Reeder Pac PT PER B/S WEB APPROVAL FOR 10 VISITS ON C-SPINE TO PT DEPT. NT Created [address] [facility] [address] [place] [address] [phone]
--- OUTSIDE RECORDS SUMMARY | 2020-08-11 11:45 | CCD ---
Author Author [facility] Organization [facility] Address Unknown Phone Unavailable Care Team Providers Care Platform Inspector Name Role Phone Gregg Newsome Unavailable PROBLEMS Type Condition ICD9-CM Code [id number] Code Onset Dates Condition S tatus SNOMED Code Notes Problem Mixed hyperlipidemia E78.2 Active 074669654 Problem Essential (primary) hypertension I10 Active 99125323 Problem Urge incontinence N39.41 Active 60494526 Problem Vitamin D deficiency, unspecified E55.9 Active 79726607 Problem Breast cancer screening Z12.39 Active 02544967 8 Problem Osteopenia M85.80 Active 446801705 Problem Multifocal atrial tachycardia I47.1 Active 49 444837 Problem Venous insufficiency of both lower extremities I87 .2 Active 967012767 Problem Colon cancer screening Z12.11 Active 512763467 Problem Non-seasonal allergic rhinitis, unspecified trigger J30.89 Active 88216699 Problem IFG (impaired fasting glucose) R73.01 Active 3 41192644 Problem Chronic leukopenia D72.819 Active 00466171 Problem CAD (coronary artery disease) I25.10 Active 53 140156 Problem Constipation, chronic K59.09 Active 353003368 Problem Lumbar spondylosis M47.816 Active 613659311 Problem Gastro-esophageal reflux K21.9 Active 1206322 09 Problem Chronic maxillary sinusitis J32.0 Active 3592 3002 ALLERGIES No Known Allergies ENCOUNTERS from 1955 to 2020-06-07 Encounter Location Date Provider Diagnosis [address] [place] [address] 07 May, 2 020 Gregg Jerod Urge incontinence N39.41 and Mixed hyperlipidemia E78.2 IMMUNIZATIONS Vaccine Route Administration Date Status Influenza [...] College Language: Question Answer Notes Languages spoken: Bolivian Restoration: Question Answer Notes Restoration 21 Gnosticist Sexual Hx: Question Answer Notes Had sex [...] 17 Orally bid for 90 day(s) Active Vitamin D3 2000 UNIT 1 capsule Orally Once a day 12 Dec, 2 018 Active Ocuvite Adult Formula - Orally A ctive Colace 100 mg 1 capsule as needed Orally Twice a day Active Prolite Ankle Stirrup Brace - as directed L once daily for 30 Da ys 02 Mar, 2020 Active Telmisartan 80 MG 1/2 tablet Orally bid for 90 day(s) O 2019 Active Aspir-Low 81 MG 1 [...] BY MOUTH AT BEDTIME for 90 Active Actonel 35 MG 1 tablet Orally weekly for 30 Active Losartan Potassium 50 MG 1 tablet Orally Once a day for 30 Active Oxybutynin Chloride 10 mg 1 tab Orally once a day for 90 day(s) Active Multi-Vitamin otc 1 tab Orally Once a day Active PROCEDURES No Information RESULTS No Results REASON FOR VISIT Rosuvastatin 40MG, Oxybutynin Chloride 10 mg MEDICAL (GENERAL) HISTORY Type Description Date Medical History CAD s/p NSTEMI s/p JUAN to mi d LAD and proximal first diagonal wzexro-[place]-7/2012/07/2017 NST normal perfusion [facility]PECT-[place] Medical History trace MR/AR, grade 1 diastol ic dysfiunction, mild LVH by 11/2017 TTE-[place] Medical History hyperlipidemia 2B Medical History impaired [...] History allergic rhinitis-10/2018 - zone1 Surgical History pszculcxdvy-ymdrve-Vwdasvdwy 03/2005, 11/30 015 Surgical History LUKE/BSO 1985 Surgical History appendectomy 1985 Surgical History [facility] 1987 Surgical History left breast biopsy negative-Effie Aug 2006 Surgical History 1979 Hospitalization History as above Hospitalization History Pt. passed out at work 04/28/18 Goals Section No Information Health Concerns No Information MEDICAL EQUIPMENT No Information MENTAL STATUS No Information FUNCTIONAL STATUS No Information ASSESSMENTS Encounter Date Diagnosis Assessment Notes Treatment Notes Treatm ent Clinical Notes May, Urge incontinence (ICD-10 - N39.41) May, Mixed hyperlipidemia (ICD-10 - E78.2) PLAN OF TREATMENT Medication Medication Name Sig [...] 1 capsule Orally Once a day Dec, Telmisartan 80 MG 1/2 tablet Orally bid for 90 day(s) Mar, 20 Famotidine 40 MG TAKE ONE TABLET BY MOUTH AT BEDTIME for 90 Actonel 35 MG 1 tablet Orally weekly for 30 Oxybutynin Chloride 10 mg 1 tab Orally [...] mmHg as directed _ Daily for _ Insurance Providers Payer Name Payer Address Payer Phone Insured Name Patient Relati onship to Insured Coverage Start Date Coverage End Date MEDICARE BLUE PPO 306 [address]UE [address]OSS [address] [id number] JAZ MCKEON
--- OUTSIDE RECORDS SUMMARY | 2020-08-11 11:45 | CCD | Continuity of Care Document ---
Author Author Ana REEDER PA Organization Unknown Address [address] [place] [address], [address] [address] Phone [phone] Care Team Providers Care Legal Project Manager Name Role Phone Gregg Newsome MD AUTM [phone] Govind Freeman AUTM [phone] Problems Active Problems Provider Date Essential hypertension GLEN Harris Onset: 12/03/2019 Pure hypercholesterolemia GLEN Harris Onset: 020 Social History Type Date Description Comments Sex Unknown ETOH Use Occasionally consumes alcohol Tobacco Use Start: Unknown Patient has never smoked Allergies, Adverse Reactions, Alerts Description No Known Drug Allergies Medications Active Medications SIG Qnty Indications Ordering Provide r Date Risedronate Sodium 35mg Tablets Gregg Newsome MD Cyclobenzaprine HCL 5mg Tablets Govind Freeman PA Losartan Potassium 50mg Tablets Gregg Newsome MD Rosuvastatin Calcium 40mg Tablets Gregg Newsome MD Levocetirizine Dihydrochloride 5mg Tablets Gregg Newsome MD Oxybutynin Chloride ER 10mg Tablets ER 24HR Gregg Newsome MD Polyethylene Glycol 3350 17GM/Scoop Powder Take 17Grams Once Daily Mix With 4 8 Ounces Of Liquid Unknown Aspirin Adult Low Strength 81mg Tablets DR daily Unknown Immunizations Description No Information Available Vital Signs Date Vital Result Comment 05/18/2020 5:43pm Body Temperature 96.7 F 12/02/2019 2:21pm Body Temperature 98.4 F Height 64 inches 5'4" Weight 165.00 lb BMI (Body Mass Index) 28.3 kg/m2 Results Description No Information Available Procedures Date Code Description Status 03/25/2020 91731 Manual Therapy Each 15 Minutes C ompleted 03/22/2020 67386 Manual Therapy Each 15 Minutes C ompleted 03/22/2020 68787 Therapeutic Procedure, Each 15 M inutes Completed 03/18/2020 68736 Manual Therapy Each 15 Minutes C ompleted 03/18/2020 96019 Therapeutic Procedure, Each 15 M inutes Completed 03/15/2020 21010 Manual Therapy Each 15 Minutes C ompleted 03/15/2020 08473 Therapeutic Procedure, Each 15 M inutes Completed 03/11/2020 31397 Manual Therapy Each 15 Minutes C ompleted 03/11/2020 04974 Therapeutic Procedure, Each 15 M inutes Completed 03/09/2020 16647 Therapeutic Procedure, Each 15 M inutes Completed 03/09/2020 46630 Manual Therapy Each 15 Minutes C ompleted 03/04/2020 02728 Manual Therapy Each 15 Minutes C ompleted 03/04/2020 18700 Therapeutic Procedure, Each 15 M inutes Completed 03/01/2020 51647 Manual Therapy Each 15 Minutes C ompleted 03/01/2020 85438 Therapeutic Procedure, Each 15 M inutes Completed 02/26/2020 86744 Manual Therapy Each 15 Minutes C ompleted 02/26/2020 57103 Therapeutic Procedure, Each 15 M inutes Completed 02/23/2020 73277 Physical Therapy Eval - Low Comp lexity Completed 07/01/2019 845516259 Bone Mineral Density Test Comple donnie 07/01/2014 92662124 Colonoscopy Completed Medical Devices Description No Information Available Encounters Type Date Location Provider Dx Diagnosis Office Visit 02/03/2020 9:45a GLEN Arriola M47.22 Other spondylosis with radiculopathy, cervical region M50.321 Other cervical disc degenera tion at C4-C5 level M50.322 Other cervical disc degenera tion at C5-C6 level Office Visit 12/02/2019 1:30p GLEN Arriola M50.30 Other cervical disc degeneration, unsp cervical region M43.12 Spondylolisthesis, cervical region M47.22 Other spondylosis with radic ulopathy, cervical region G56.02 Carpal tunnel syndrome, left upper limb Assessments Date Code Description Provider 05/18/2020 M47.22 Other spondylosis with radiculop athy, cervical region Curt Reeder, PA 05/18/2020 M50.321 Other cervical disc degeneration at C4-C5 level Curt Reeder, PA 05/18/2020 M50.322 Other cervical disc degeneration at C5-C6 level Curt Reeder, PA 03/25/2020 M47.22 Other spondylosis with radiculop athy, cervical region [facility] 03/25/2020 M50.321 Other cervical disc degeneration at C4-C5 level Nikki Savage, [facility] 03/25/2020 M50.322 Other cervical disc degeneration at C5-C6 level Nikki Savage, [facility] 03/22/2020 M47.22 Other spondylosis with radiculop athy, cervical region Dorota Singletary, [employer] 03/22/2020 M50.321 Other cervical disc degeneration at C4-C5 level Dorota Singletary, [employer] 03/22/2020 M50.322 Other cervical disc degeneration at C5-C6 level Dorota Singletary, [employer] 03/18/2020 M47.22 Other spondylosis with radiculop athy, [...] radiculop athy, cervical region Nikki Savage, [facility] 03/11/2020 M50.321 Other cervical disc degeneration at C4-C5 level Nikki Savage, [facility] 03/11/2020 M50.322 Other cervical disc degeneration at [...] degeneration at C5-C6 level Nikki Savage, [facility] 02/03/2020 M47.22 Other spondylosis with radiculop athy, cervical region Curt Reeder, GLEN 02/03/2020 M50.321 Other cervical disc degeneration at C4-C5 level GLEN Harris 02/03/2020 M50.322 Other cervical disc degeneration at C5-C6 level GLEN Harris 12/02/2019 M50.30 Other cervical disc degeneration , unspecified cervical region GLEN Harris 12/02/2019 M43.12 Spondylolisthesis, cervical mark on GLEN Harris 12/02/2019 M47.22 Other spondylosis with radiculop athy, cervical region GLEN Harris 12/02/2019 G56.02 Carpal tunnel syndrome, left upp er limb GLEN Harris Plan of Treatment 05/18/2020 - GLEN Harris* M47.22 Other spondylosis with radiculopathy, cervical region* Follow up:* with IID after EMG for results via phone call * M50.321 Other cervical disc degeneration at C4-C5 level * M50.322 Other cervical disc degeneration at C5-C6 level Functional Status Description No Information Available Mental Status Description No Information Available Referrals Refer to Dr Reason for Referral Status Appt Date Curt Reeder Pac PT PER B/S WEB APPROVAL FOR 10 VISITS ON C-SPINE TO PT DEPT. NT Created [address] [place] [address] [address] [place] [address] [phone]
--- OUTSIDE RECORDS SUMMARY | 2020-08-11 11:46 | CCD ---
Author Author [facility] Organization [facility] Address Unknown Phone Unavailable Care Team Providers Care It Business Process Architect Name Role Phone DRAZEK, I JENNIFER PA Unavailable Unavailable DRAZEK, I JENNIFER PA Unavailable Unavailable DRAZEK, I JENNIFER PA Unavailable Unavailable DRAZEK, I JENNIFER PA Unavailable Unavailable DRAZEK, I JENNIFER PA Unavailable Unavailable DRAZEK, I JENNIFER PA Unavailable Unavailable DRAZEK, I JENNIFER PA Unavailable Unavailable DRAZEK, I JENNIFER PA Unavailable Unavailable DRAZEK, I JENNIFER PA Unavailable Unavailable DRAZEK, I JENNIFER PA Unavailable Unavailable DRAZEK, I JENNIFER PA Unavailable Unavailable DRAZEK, I JENNIFER PA Unavailable Unavailable DRAZEK, I JENNIFER PA Unavailable Unavailable DRAZEK, I JENNIFER PA Unavailable Unavailable DRAZEK, I JENNIFER PA Unavailable Unavailable DRAZEK, I JENNIFER PA Unavailable Unavailable DRAZEK, I JENNIFER PA Unavailable Unavailable DRAZEK, I JENNIFER PA Unavailable Unavailable DRAZEK, I JENNIFER PA Unavailable Unavailable DRAZEK, I JENNIFER PA Unavailable Unavailable DRAZEK, I JENNIFER PA Unavailable Unavailable DRAZEK, I JENNIFER PA Unavailable Unavailable DRAZEK, I JENNIFER PA Unavailable Unavailable DRAZEK, I JENNIFER PA Unavailable Unavailable DRAZEK, I JENNIFER PA Unavailable Unavailable DRAZEK, I JENNIFER PA Unavailable Unavailable DRAZEK, I JENNIFER PA Unavailable Unavailable DRAZEK, I JENNIFER PA Unavailable Unavailable DRAZEK, I JENNIFER PA Unavailable Unavailable DRAZEK, I JENNIFER PA Unavailable Unavailable Symenow, Radha Hannah PA Unavailable Unavailable Symenow, Radha Hannah PA Unavailable Unavailable Symenow, Radha Hannah PA Unavailable Unavailable Symenow, Radha Hannah PA Unavailable Unavailable Symenow, Radha Hannah PA Unavailable Unavailable Symenow, Radha Hannah PA Unavailable Unavailable Symenow, Radha Hannah PA Unavailable Unavailable Symenow, Radha Hannah PA Unavailable Unavailable Symenow, Radha Hannah PA Unavailable Unavailable Symenow, Radha Hannah PA Unavailable Unavailable Symenow, Radha Hannah PA Unavailable Unavailable Symenow, Radha Hannah PA Unavailable Unavailable Symenow, Radha Hannah PA Unavailable Unavailable Symenow, Radha Hannah PA Unavailable Unavailable Symenow, Radha Hannah PA Unavailable Unavailable Symenow, Radha Hannah PA Unavailable Unavailable Symenow, Radha Hannah PA Unavailable Unavailable Symenow, Radha Hannah PA Unavailable Unavailable Symenow, Radha Hannah PA Unavailable Unavailable Symenow, Radha Hannah PA Unavailable Unavailable Symenow, Radha Hannah PA Unavailable Unavailable Symenow, Radha Hannah PA Unavailable Unavailable Symenow, Radha Hannah PA Unavailable Unavailable Symenow, Radha Hannah PA Unavailable Unavailable Symenow, Radha Hannah PA Unavailable Unavailable Symenow, Radha Hannah PA Unavailable Unavailable Symenow, Radha Hannah PA Unavailable Unavailable Symenow, Radha Hannah PA Unavailable Unavailable Symenow, Radha Hannah PA Unavailable Unavailable Symenow, Radha Hannah PA Unavailable Unavailable Symenow, Radha Hannah PA Unavailable Unavailable Symenow, Radha Hannah PA Unavailable Unavailable Symenow, Radha Hannah PA Unavailable Unavailable Symenow, Radha Hannah PA Unavailable Unavailable Symenow, Radha Hannah PA Unavailable Unavailable Symenow, Radha Hannah PA Unavailable Unavailable MAJAK, R JEMAL DPM Unavailable Unavailable MAJAK, R JEMAL DPM Unavailable Unavailable MAJAK, R JEMAL DPM Unavailable Unavailable MAJAK, R JEMAL DPM Unavailable Unavailable MAJAK, R JEMAL DPM Unavailable Unavailable MAJAK, R JEMAL DPM Unavailable Unavailable MAJAK, R JEMAL DPM Unavailable Unavailable MAJAK, R JEMAL DPM Unavailable Unavailable MAJAK, R JEMAL DPM Unavailable Unavailable MAJAK, R JEMAL DPM Unavailable Unavailable MAJAK, R JEMAL DPM Unavailable Unavailable MAJAK, R JEMAL DPM Unavailable Unavailable MAJAK, R JEMAL DPM Unavailable Unavailable MAJAK, R JEMAL DPM Unavailable Unavailable MAJAK, R JEMAL DPM Unavailable Unavailable MAJAK, R JEMAL DPM Unavailable Unavailable MAJAK, R JEMAL DPM Unavailable Unavailable MAJAK, R JEMAL DPM Unavailable Unavailable MAJAK, R JEMAL DPM Unavailable Unavailable MAJAK, R JEMAL DPM Unavailable Unavailable MAJAK, R JEMAL DPM Unavailable Unavailable MAJAK, R JEMAL DPM Unavailable Unavailable MAJAK, R JEMAL DPM Unavailable Unavailable MAJAK, R JEMAL DPM Unavailable Unavailable MAJAK, R JEMAL DPM Unavailable Unavailable MAJAK, R JEMAL DPM Unavailable Unavailable MAJAK, R JEMAL DPM Unavailable Unavailable MAJAK, R JEMAL DPM Unavailable Unavailable MAJAK, R JEMAL DPM Unavailable Unavailable MAJAK, R JEMAL DPM Unavailable Unavailable OLIVEROS, BALWINDER Unavailable Unavailable SAGCAN, G DEB MD Unavailable Unavailable SAGCAN, G DEB MD Unavailable Unavailable SAGCAN, G DEB MD Unavailable Unavailable SAGCAN, G DEB MD Unavailable Unavailable SAGCAN, G DEB MD Unavailable Unavailable SAGCAN, G DEB MD Unavailable Unavailable SAGCAN, G DEB MD Unavailable Unavailable SAGCAN, G DEB MD Unavailable Unavailable SAGCAN, G DEB MD Unavailable Unavailable SAGCAN, G DEB MD Unavailable Unavailable SAGCAN, G DEB MD Unavailable Unavailable SAGCAN, G DEB MD Unavailable Unavailable SAGCAN, G DEB MD Unavailable Unavailable SAGCAN, G DEB MD Unavailable Unavailable SAGCAN, G DEB MD Unavailable Unavailable SAGCAN, G DEB MD Unavailable Unavailable SAGCAN, G DEB MD Unavailable Unavailable OLIVEROS, BALWINDER Unavailable Unavailable DRAZEK, I JENNIFER PA Unavailable Unavailable DRAZEK, I JENNIFER PA Unavailable Unavailable DRAZEK, I JENNIFER PA Unavailable Unavailable DRAZEK, I JENNIFER PA Unavailable Unavailable DRAZEK, I JENNIFER PA Unavailable Unavailable DRAZEK, I JENNIFER PA Unavailable Unavailable DRAZEK, I JENNIFER PA Unavailable Unavailable DRAZEK, I JENNIFER PA Unavailable Unavailable DRAZEK, I JENNIFER PA Unavailable Unavailable DRAZEK, I JENNIFER PA Unavailable Unavailable DRAZEK, I JENNIFER PA Unavailable Unavailable DRAZEK, I JENNIFER PA Unavailable Unavailable DRAZEK, I JENNIFER PA Unavailable Unavailable DRAZEK, I JENNIFER PA Unavailable Unavailable DRAZEK, I JENNIFER PA Unavailable Unavailable DRAZEK, I JENNIFER PA Unavailable Unavailable DRAZEK, I JENNIFER PA Unavailable Unavailable DRAZEK, I JENNIFER PA Unavailable Unavailable DRAZEK, I JENNIFER PA Unavailable Unavailable DRAZEK, I JENNIFER PA Unavailable Unavailable DRAZEK, I JENNIFER PA Unavailable Unavailable DRAZEK, I JENNIFER PA Unavailable Unavailable DRAZEK, I JENNIFER PA Unavailable Unavailable DRAZEK, I JENNIFER PA Unavailable Unavailable DRAZEK, I JENNIFER PA Unavailable Unavailable DRAZEK, I JENNIFER PA Unavailable Unavailable DRAZEK, I JENNIFER PA Unavailable Unavailable DRAZEK, I JENNIFER PA Unavailable Unavailable DRAZEK, I JENNIFER PA Unavailable Unavailable DRAZEK, I JENNIFER PA Unavailable Unavailable Eloy Rea MD Unavailable Unavailable Eloy Rea MD Unavailable Unavailable Eloy Rea MD Unavailable Unavailable Eloy Rea MD Unavailable Unavailable Eloy Rea MD Unavailable Unavailable Eloy Rea MD Unavailable Unavailable Eloy Rea MD Unavailable Unavailable Eloy Rea MD Unavailable Unavailable Eloy Rea MD Unavailable Unavailable Valentin Reaeeisaías ISAAC Unavailable Unavailable Rona Eloy Unavailable Unavailable Hamsudhir, Eloy MD Unavailable Unavailable Hamsudhir, Eloy MD Unavailable Unavailable Flores, Kan Unavailable Unavailable Flores, Kan Unavailable Unavailable Flores, Kan Unavailable Unavailable Flores, Kan Unavailable Unavailable Flores, Kan Unavailable Unavailable Flores, Kan Unavailable Unavailable Flores, Kan Unavailable Unavailable Flores, Kan Unavailable Unavailable Flores, Kan Unavailable Unavailable Flores, Kan Unavailable Unavailable Flores, Kan Unavailable Unavailable Flores, Kan Unavailable Unavailable Flores, Kan Unavailable Unavailable Flores, Kan Unavailable Unavailable Flores, Kan Unavailable Unavailable Flores, Kan Unavailable Unavailable Flores, Kan Unavailable Unavailable Flores, Kan Unavailable Unavailable Flores, Kan Unavailable Unavailable Flores, Kan Unavailable Unavailable Flores, Kan Unavailable Unavailable Flores, Kan Unavailable Unavailable Flores, Kan Unavailable Unavailable Flores, Kan Unavailable Unavailable Flores, Kan Unavailable Unavailable Flores, Kan Unavailable Unavailable Flores, Kan Unavailable Unavailable Flores, Kan Unavailable Unavailable Flores, Kan Unavailable Unavailable Flores, Kan Unavailable Unavailable Flores, Kan Unavailable Unavailable Flores, Kan Unavailable Unavailable Flores, Kan Unavailable Unavailable Flores, Kan Unavailable Unavailable Flores, Kan Unavailable Unavailable Flores, Kan Unavailable Unavailable Flores, Kan Unavailable Unavailable Flores, Kan Unavailable Unavailable Flores, Kan Unavailable Unavailable Flores, Kan Unavailable Unavailable Flores, Kan Unavailable Unavailable Flores, Kan Unavailable Unavailable Flores, Kan Unavailable Unavailable Flores, Kan Unavailable Unavailable LETTIERE, A VAN PA Unavailable Unavailable LETTIERE, A VAN PA Unavailable Unavailable LETTIERE, A VAN PA Unavailable Unavailable LETTIERE, A VAN PA Unavailable Unavailable LETTIERE, A VAN PA Unavailable Unavailable LETTIERE, A VAN PA Unavailable Unavailable LETTIERE, A VAN PA Unavailable Unavailable LETTIERE, A VAN PA Unavailable Unavailable LETTIERE, A VAN PA Unavailable Unavailable LETTIERE, A VAN PA Unavailable Unavailable LETTIERE, A VAN PA Unavailable Unavailable LETTIERE, A VAN PA Unavailable Unavailable LETTIERE, A VAN PA Unavailable Unavailable LETTIERE, A VAN PA Unavailable Unavailable LETTIERE, A VAN PA Unavailable Unavailable LETTIERE, A VAN PA Unavailable Unavailable LETTIERE, A VAN PA Unavailable Unavailable LETTIERE, A VAN PA Unavailable Unavailable LETTIERE, A VAN PA Unavailable Unavailable LETTIERE, A VAN PA Unavailable Unavailable LETTIERE, A VAN PA Unavailable Unavailable LETTIERE, A VAN PA Unavailable Unavailable LETTIERE, A VAN PA Unavailable Unavailable LETTIERE, A VAN PA Unavailable Unavailable LETTIERE, A VAN PA Unavailable Unavailable LETTIERE, A VAN PA Unavailable Unavailable LETTIERE, A VAN PA Unavailable Unavailable LETTIERE, A VAN PA Unavailable Unavailable LETTIERE, A VAN PA Unavailable Unavailable Re-disclosure Warning The records that you are about to access may contain information from federally-assisted alcohol or drug abuse programs. If such information is present, then the following federally mandated warning applies: This information has been disclosed to you from records protected by federal confidentiality rules (42 CFR part 2). The federal rules prohibit you from making any further disclosure of this information unless further disclosure is expressly permitted by the written consent of the person to whom it pertains or as otherwise permitted by 42 CFR part 2. A general authorization for the release of medical or other information is NOT sufficient for this purpose. The Federal rules restrict any use of the information to criminally investigate or prosecute any alcohol or drug abuse patient.The records that you are about to access may contain highly sensitive health information, the redisclosure of which is protected by Article 27-F of the [facility] Public Health law. If you continue you may have access to information: Regarding HIV / AIDS; Provided by facilities licensed or operated by the [facility] Office of Mental Health; or Provided by the [facility] Office for People With Developmental Disabilities. If such information is present, then the following [facility] mandated warning applies: This information has been disclosed to you from confidential records which are protected by state law. State law prohibits you from making any further disclosure of this information without the specific written consent of the person to whom it pertains, or as otherwise permitted by law. Any unauthorized further disclosure in violation of state law may result in a fine or retirement sentence or both. A general authorization for the release of medical or other information is NOT sufficient authorization for further disc losure. Family History Family Member Name Family Member Gender Family Member Status Date o f Status Description Data Source(s) Unknown Unknown Problem [facility] ([facility] Unknown Unknown Problem [facility] ([facility], [facility]) father Unknown Female Encounters Encounter Providers Location Date Indications Data Source(s ) Office Visit Attender: Hannah DONIS Main Office 08/08/2020 09:15:0 0 AM EST [facility] ([facility]) OFFICE OUTPATIENT VISIT 15 MINUTES Attender: JENNIFER Vitale ical Therapy 07/20/2020 02:30:00 PM EST [facility] ([facility]) Office Visit Attender: Kan Flores Physical Therapy 07/08/2020 01: 30:00 PM EST [facility] ([facility]) [place] [address] [place] [address] 06/29/2020 12:00:00 AM EST eCW1 (Critical access hospital) Unknown [address] [place] [address] 06/06/2020 12:00:00 AM EST eCW1 (Critical access hospital) Office Visit Attender: Hannah DONIS Main Office 05/19/2020 02:00:0 0 PM EST [facility] ([facility]) OFFICE OUTPATIENT VISIT 15 MINUTES Attender: JENNIFER DONIS Phys ical Therapy 05/18/2020 04:15:00 PM EST [facility] ([facility]) [place] [address] [place] [address] 03/30/2020 12:00:00 AM EDT eCW1 (Critical access hospital) Outpatient Attender: BALWINDER Crockerender : BALWINDER FELDMANdmitter: BALWINDER OLIVEROSReferrer: BALWINDER OLIVEROS [id number] 02/18/2020 10:40:00 AM EDT - 02/18/2020 11:59:00 PM EDT [facility] Patient discharged. Outpatient Attender: Eloy Yap uriah: BALWINDER Crockerender: BALWINDER Crockerender: DEB FERGUSON MDAdmitter: BALWINDER OLIVEROS [id number] 01/29 05:30:02 PM EDT - 02/18/2020 04:57:00 PM EDT [facility] Patient discharged. OFFICE OUTPATIENT VISIT 15 MINUTES Attender: JENNIFER DONIS Phys ical Therapy 02/03/2020 09:45:00 AM EDT [facility] ([facility]) Outpatient Referrer: JENNIFER DONIS 12/24/2019 01:34:00 PM EDT [facility] Outpatient Referrer: JENNIFER DONIS 12/24/2019 01:10:00 PM EDT [facility] Outpatient Referrer: JENNIFER DONIS 12/24/2019 01:00:00 PM EDT [facility] Outpatient Referrer: JENNIFER DONIS 12/19/2019 01:59:00 PM EDT [facility] Outpatient Referrer: JENNIFER DONIS 12/14/2019 03:16:00 PM EDT [facility] Outpatient 12/14/2019 02:37:00 PM EDT [facility] Outpatient Attender: JENNIFER DONIS Physical Therapy 12/02/2019 0 1:30:00 PM EDT [facility] ([facility]) Outpatient 12/01/2019 05:30:00 AM EDT [facility] Outpatient Attender: VAN de león 11/16/2019 02:15:00 PM EDT [facility] ([facility]) Outpatient Attender: Hannah DONIS Main Office 11/04/2019 09:45:00 AM EDT [facility] ([facility]) [facility] [address] [place] [address] 08/31/2019 12:00:00 AM EST eCW1 (Critical access hospital) [facility] [address] [place] [address] 08/31/2019 12:00:00 AM EST eCW1 (Critical access hospital) Outpatient 07/28/2019 12:07:00 PM EST [facility] Outpatient Attender: JEMAL NUNEZ [facility] Office 05/31 12:00:00 PM EST [facility] ([facility] Medications Medication Brand Name Start Date Product Form Dose Route Admi nistrative Instructions Pharmacy Instructions Status Indications Reaction Description Data Source(s) gabapentin 100 MG Oral Capsule Gabapentin 08/07/2020 12:00:00 AM EST ORAL active [facility] ([facility]) 100 mg 07/21/2020 12:00:00 AM EST capsule 90 TAKE ONE CAPSULE BY MOUTH THREE TIMES A DAY TAKE ONE CAPSULE BY MOUTH THREE TIMES A DAY SOLD: 07/22/2020 [facility] gabapentin 100 MG Oral Capsule Gabapentin 07/20/2020 12:00:00 AM EST ORAL active [facility] ([facility]) Rosuvastatin calcium 40 MG Oral Tablet ROSUVASTATIN CALCIUM 06/07/2020 12:00:00 AM EST tablet 90 TAKE ONE TABLET BY MOUTH AFTAB DAY TAKE ONE TABLET BY MOUTH EVERY DAY SOLD: 06/09/2020 [facility] 10 mg 06/06/2020 12:00:00 AM EST tablet extended release 24hr 90 TAKE ONE TABLET BY MOUTH EVERY DAY TAKE ONE TABLET BY MOUTH EVERY DAY SOLD: 06/09/2020 [facility] 10 mg 05/23/2020 12:00:00 AM EST tablet 90 TAKE ONE TABLET BY MOUTH EVERY DAY TAKE ONE TABLET BY MOUTH EVERY DAY SOLD: 05/23/2020 [facility] 2.5 mg 05/21/2020 12:00:00 AM EST tablet 90 TAKE ONE TABLET BY MOUTH EVERY DAY TAKE ONE TABLET BY MOUTH EVERY DAY SOLD: 05/23/2020 [facility] 0.4 mg 05/19/2020 12:00:00 AM EST tablet, sublingual 25 PLACE ONE TABLET UNDER THE TONGUE EVERY 5 MINUTES FOR UP TO 3 DOSES NEEDED FOR CHEST PAIN. IF CHEST PAIN STILL PERSISTS CONTACT [address] ONE TABLET UNDER THE TONGUE EVERY 5 MINUTES FOR UP TO 3 DOSES NEEDED FOR CHEST PAIN. IF CHEST PAIN STILL PERSISTS CONTACT 911 SOLD: 05/20/2020 [facility] Famotidine 40 MG Oral Tablet Famotidine 05/18/2020 12:00:00 AM EST ORAL active [facility] ([facility]) torsemide 10 MG Oral Tablet Torsemide 05/18/2020 12:00:00 AM EST ORAL active [facility] ([facility]) Amlodipine 2.5 MG Oral Tablet Amlodipine Besylate 05/18/2020 12:00: 00 AM EST ORAL active [facility] ([facility]) telmisartan 40 MG Oral Tablet Telmisartan 05/18/2020 12:00:00 AM EST ORAL active [facility] ([facility]) 40 mg 05/17/2020 12:00:00 AM EST tablet 90 TAKE ONE TABLET BY MOUTH AT BEDTIME TAKE ONE TABLET BY MOUTH AT BEDTIME SOLD: 05/20/2020 [facility] 5 mg 05/01/2020 12:00:00 AM EDT tablet 90 TAKE ONE TABLET BY MOUTH EVERY DAY TAKE ONE TABLET BY MOUTH EVERY DAY SOLD: 05/01/2020 [facility] telmisartan 80 MG Oral Tablet TELMISARTAN 04/01/2020 12:00:00 AM EDT tablet 90 TAKE 1/2 TABLET BY MOUTH TWO TIMES A DAY TAKE 1/2 TABL ET BY MOUTH TWO TIMES A DAY SOLD: 06/29/2020 [facility] telmisartan 80 MG Oral Tablet TELMISARTAN 04/01/2020 12:00:00 AM EDT tablet 90 TAKE 1/2 TABLET BY MOUTH TWO TIMES A DAY TAKE 1/2 TABL ET BY MOUTH TWO TIMES A DAY SOLD: 04/03/2020 [facility] telmisartan 80 MG Oral Tablet Telmisartan 80 MG Telmisartan 80 MG 03/31/2020 12:00:00 AM EDT active Telmisar randle 80 MG eCW1 ([facility]) telmisartan 80 MG Oral Tablet Telmisartan 80 MG Telmisartan 80 MG 03/31/2020 12:00:00 AM EDT active Telmisar randle 80 MG eCW1 ([facility]) telmisartan 80 MG Oral Tablet Telmisartan 80 MG Telmisartan 80 MG 03/31/2020 12:00:00 AM EDT active Telmisar randle 80 MG eCW1 ([facility]) 35 mg 03/04/2020 12:00:00 AM EDT tablet 12 TAKE 1 TABLET BY MOUTH EVERY 7 DAYS TAKE 1 TABLET BY MOUTH EVERY 7 DAYS SOLD: 03/05/2020 [facility] Rosuvastatin calcium 40 MG Oral Tablet ROSUVASTATIN CALCIUM 03/04/2020 12:00:00 AM EDT tablet 30 TAKE ONE TABLET BY MOUTH AFTAB RY DAY TAKE ONE TABLET BY MOUTH EVERY DAY SOLD: 05/01/2020 [facility] 40 mg 03/04/2020 12:00:00 AM EDT tablet 30 TAKE ONE TABLET BY MOUTH EVERY DAY TAKE ONE TABLET BY MOUTH EVERY DAY SOLD: 03/31/2020 [facility] 40 mg 03/04/2020 12:00:00 AM EDT tablet 30 TAKE ONE TABLET BY MOUTH EVERY DAY TAKE ONE TABLET BY MOUTH EVERY DAY SOLD: 03/05/2020 [facility] 10 mg 03/04/2020 12:00:00 AM EDT tablet extended release 24hr 90 TAKE ONE TABLET BY MOUTH AT BEDTIME TAKE ONE TABLET BY MOUTH AT BEDTIME SOLD: 03/05/2020 [facility] 10 mg 03/03/2020 12:00:00 AM EDT tablet 30 TAKE ONE TABLET BY MOUTH EVERY MORNING TAKE ONE TABLET BY MOUTH EVERY MORNING SOLD: 03/03/2020 [facility] 2.5 mg 03/03/2020 12:00:00 AM EDT tablet 30 TAKE ONE TABLET BY MOUTH EVERY DAY AT BEDTIME TAKE ONE TABLET BY MOUTH EVERY DAY AT BEDTIME SOLD: 03/31/2020 [facility] 10 mg 03/03/2020 12:00:00 AM EDT tablet 30 TAKE ONE TABLET BY MOUTH EVERY MORNING TAKE ONE TABLET BY MOUTH EVERY MORNING SOLD: 05/01/2020 [facility] Losartan Potassium 50 MG Oral Tablet LOSARTAN POTASSIUM 08/2019 12:00:00 AM EDT tablet 60 TAKE ONE TABLET BY MOUTH TWI CE A DAY TAKE ONE TABLET BY MOUTH TWICE A DAY SOLD: 03/03/2020 [facility] 2.5 mg 03/03/2020 12:00:00 AM EDT tablet 30 TAKE ONE TABLET BY MOUTH EVERY DAY AT BEDTIME TAKE ONE TABLET BY MOUTH EVERY DAY AT BEDTIME SOLD: 03/03/2020 [facility] 10 mg 03/03/2020 12:00:00 AM EDT tablet 30 TAKE ONE TABLET BY MOUTH EVERY MORNING TAKE ONE TABLET BY MOUTH EVERY MORNING SOLD: 03/31/2020 [facility] 50 mg 03/03/2020 12:00:00 AM EDT tablet 60 TAKE ONE TABLET BY MOUTH TWICE A DAY TAKE ONE TABLET BY MOUTH TWICE A DAY SOLD: 03/31/2020 [facility] 2.5 mg 03/03/2020 12:00:00 AM EDT tablet 30 TAKE ONE TABLET BY MOUTH EVERY DAY AT BEDTIME TAKE ONE TABLET BY MOUTH EVERY DAY AT BEDTIME SOLD: 05/01/2020 [facility] Acetaminophen 325 MG Oral Tablet acetaminophen (TYLENO L) 325 MG tablet 650 mg acetaminophen (TYLENOL) 325 MG tablet 650 mg 02/18/2020 12:33:56 PM EDT 650 mg Oral aborted 650 mg, Or al, Every 4 hours PRN, mild pain (1-3), Starting Jerri 02/18/20 at 1233
"Maximum dose of acetaminophen is 4,000 mg from all sources in 24 hours."
[facility] Medication administered onsite Losartan Potassium 25 MG Oral Tablet losartan (COZAAR) tablet 50 mg losartan (COZAAR) tablet 50 mg 02/18/2020 12:00:00 PM EDT 50 mg Oral active 50 mg, Oral, Daily, First dose on Jerri 02/18/20 at 1200 [facility] Medication administered onsite Amlodipine 10 MG Oral Tablet amLODIPine (NORVASC) 10 M G tablet amLODIPine (NORVASC) 10 MG tablet 02/18/2020 12:00:00 AM EDT 10 mg Oral active Take 1 tablet (10 mg total) by mouth daily [facility] 10 mg 02/18/2020 12:00:00 AM EDT tablet 30 TAKE ONE TABLET BY MOUTH EVERY DAY TAKE ONE TABLET BY MOUTH EVERY DAY SOLD: 02/18/2020 [facility] Aspirin 81 MG Chewable Tablet aspirin chewable tablet 81 mg aspirin chewable tablet 81 mg 02/17/2020 11:00:00 PM EDT 81 mg Oral activ e 81 mg, Oral, Daily, First dose on Sat02/17/20 at 2300 [facility] Medication administered onsite atorvastatin 40 MG Oral Tablet atorvastatin (LIPITOR) tablet 40 mg atorvastatin (LIPITOR) tablet 40 mg 02/17/2020 11:00:00 PM EDT 40 mg Oral active 40 mg, Oral, Nightly, First dose on Sat02/17/20 at 2300 [facility] Medication administered onsite Amlodipine 10 MG Oral Tablet amLODIPine (NORVASC) tabl et 10 mg amLODIPine (NORVASC) tablet 10 mg 02/17/2020 11:00:00 PM EDT 10 mg Oral active 10 mg, Oral, Daily, First dose on Sat02/17/20 at 2300 [facility] Medication administered onsite Nitroglycerin 0.4 MG Sublingual Tablet n itroglycerin (NITROSTAT) SL tablet 0.4 mg nitroglycerin (NITROSTAT) SL tablet 0.4 mg 02/17/2020 10:28:30 P M EDT 0.4 mg Sublingual active 0.4 mg, S ublingual, Every 5 min PRN, chest pain, Starting Sat02/17/20 at 2228
May administer up to 3 doses per episode.
[facility] Medication administered onsite heparin (porcine) injection 5,000 Units [id number] 02/17/20 10:00:00 PM EDT 5000 U Subcutaneous active 5,000 Units , Subcutaneous, Every 12 hours (scheduled), First dose on Sat02/17/20 at 2200
If platelet count is less than 90,000 or hematocrit is less than 25, or if there is a 5 point decrease in hematocrit, do not give the dose and call physician/designee.
[facility] Medication administered onsite 10 ML Atropine Sulfate 0.1 MG/ML Prefill ed Syringe atropine sulfate injection 0.5 mg atropine sulfate injection 0.5 mg 02/17/2020 08:58:37 PM EDT 0.5 mg active 0.5 mg, Intrave nous Push, Every 5 min PRN, other, As needed, for heart rate less than 60 BPM and the patient is hemodynamically unstable and/or SBP is less than 90mmHg, Starting Sat02/17/20 at 2058, For 1 day
Not to exceed a total of 3 mg or 0.04 mg/kg.Max of 6 doses
[facility] Medication administered onsite 40 mg 02/04/2020 12:00:00 AM EDT tablet 90 TAKE ONE TABLET BY MOUTH AT BEDTIME TAKE ONE TABLET BY MOUTH AT BEDTIME SOLD: 02/05/2020 [facility] 35 mg 11/30/2019 12:00:00 AM EDT tablet 4 TAKE ONE TABLET BY MOUTH ONCE WEEKLY TAKE ONE TABLET BY MOUTH ONCE WEEKLY SOLD: 12/30/2019 [facility] 35 mg 11/30/2019 12:00:00 AM EDT tablet 4 TAKE ONE TABLET BY MOUTH ONCE WEEKLY TAKE ONE TABLET BY MOUTH ONCE WEEKLY SOLD: 02/01/2020 [facility] 35 mg 11/30/2019 12:00:00 AM EDT tablet 4 TAKE ONE TABLET BY MOUTH ONCE WEEKLY TAKE ONE TABLET BY MOUTH ONCE WEEKLY SOLD: 12/01/2019 [facility] 5 mg 11/16/2019 12:00:00 AM EDT tablet 14 TAKE ONE TABLET BY MOUTH EVERY DAY AT BEDTIME NEEDED FOR PAIN TAKE ONE TABLET BY MOUTH EVERY DAY AT BE DTIME NEEDED FOR PAIN SOLD: 12/01/2019 [facility] 5 mg 11/16/2019 12:00:00 AM EDT tablet 14 TAKE ONE TABLET BY MOUTH EVERY DAY AT BEDTIME NEEDED FOR PAIN TAKE ONE TABLET BY MOUTH EVERY DAY AT BE DTIME NEEDED FOR PAIN SOLD: 11/16/2019 [facility] Cyclobenzaprine hydrochloride 5 MG Oral Tablet Cyclobenzapri ne HCL 11/16/2019 12:00:00 AM EDT active M EDENT ([facility]) levocetirizine dihydrochloride 5 MG Oral Tablet LEVOCETIRIZI NE DIHYDROCHLORIDE 10/27/2019 12:00:00 AM EDT tablet 90 TAKE ONE TABLE T BY MOUTH EVERY EVENING TAKE ONE TABLET BY MOUTH EVERY EVENING SOLD: 02/01/2020 [facility] levocetirizine dihydrochloride 5 MG Oral Tablet LEVOCETIRIZI NE DIHYDROCHLORIDE 10/27/2019 12:00:00 AM EDT tablet 90 TAKE ONE TABLE T BY MOUTH EVERY EVENING TAKE ONE TABLET BY MOUTH EVERY EVENING SOLD: 10/27/2019 [facility] 50 mg 09/25/2019 12:00:00 AM EDT tablet 30 TAKE ONE TABLET BY MOUTH EVERY DAY TAKE ONE TABLET BY MOUTH EVERY DAY SOLD: 12/30/2019 [facility] Losartan Potassium 50 MG Oral Tablet LOSARTAN POTASSIUM 12:00:00 AM EDT tablet 30 TAKE ONE TABLET BY MOUTH AFTAB DAY TAKE ONE TABLET BY MOUTH EVERY DAY SOLD: 02/01/2020 [facility] 50 mg 09/25/2019 12:00:00 AM EDT tablet 30 TAKE ONE TABLET BY MOUTH EVERY DAY TAKE ONE TABLET BY MOUTH EVERY DAY SOLD: 12/01/2019 [facility] 50 mg 09/25/2019 12:00:00 AM EDT tablet 30 TAKE ONE TABLET BY MOUTH EVERY DAY TAKE ONE TABLET BY MOUTH EVERY DAY SOLD: 09/25/2019 [facility] 50 mg 09/25/2019 12:00:00 AM EDT tablet 30 TAKE ONE TABLET BY MOUTH EVERY DAY TAKE ONE TABLET BY MOUTH EVERY DAY SOLD: 10/27/2019 [facility] 10 mg 09/01/2019 12:00:00 AM EST tablet extended release 24hr 90 TAKE ONE TABLET BY MOUTH EVERY DAY TAKE ONE TABLET BY MOUTH EVERY DAY SOLD: 09/04/2019 [facility] 40 mg 09/01/2019 12:00:00 AM EST tablet 90 TAKE ONE TABLET BY MOUTH EVERY DAY TAKE ONE TABLET BY MOUTH EVERY DAY SOLD: 12/01/2019 [facility] 10 mg 09/01/2019 12:00:00 AM EST tablet extended release 24hr 90 TAKE ONE TABLET BY MOUTH EVERY DAY TAKE ONE TABLET BY MOUTH EVERY DAY SOLD: 12/09/2019 [facility] 40 mg 09/01/2019 12:00:00 AM EST tablet 90 TAKE ONE TABLET BY MOUTH EVERY DAY TAKE ONE TABLET BY MOUTH EVERY DAY SOLD: 09/04/2019 [facility] Prolite Ankle Stirrup Brace - Prolite Ankle Stirrup Brace - 08/31/2019 12:00:00 AM EST active Prolite Ankle Sti rrup Brace - eCW1 ([facility]) Prolite Ankle Stirrup Brace - Prolite Ankle Stirrup Brace - 08/31/2019 12:00:00 AM EST active Prolite Ankle Sti rrup Brace - eCW1 ([facility]) Prolite Ankle Stirrup Brace - Prolite Ankle Stirrup Brace - 08/31/2019 12:00:00 AM EST active Prolite Ankle Sti rrup Brace - eCW1 ([facility]) Prolite Ankle Stirrup Brace - Prolite Ankle Stirrup Brace - 08/31/2019 12:00:00 AM EST active Prolite Ankle Sti rrup Brace - eCW1 ([facility]) Prolite Ankle Stirrup Brace - Prolite Ankle Stirrup Brace - 08/31/2019 12:00:00 AM EST active as directed eCW1 ([facility]) Prolite Ankle Stirrup Brace - Prolite Ankle Stirrup Brace - 08/31/2019 12:00:00 AM EST active as directed eCW1 ([facility]) 10 mg 06/09/2019 12:00:00 AM EST tablet extended release 24hr 30 TAKE ONE TABLET BY MOUTH EVERY DAY TAKE ONE TABLET BY MOUTH EVERY DAY SOLD: 08/10/2019 [facility] 10 mg 06/09/2019 12:00:00 AM EST tablet extended release 24hr 30 TAKE ONE TABLET BY MOUTH EVERY DAY TAKE ONE TABLET BY MOUTH EVERY DAY SOLD: 07/10/2019 [facility] 40 mg 05/12/2019 12:00:00 AM EST tablet 30 TAKE ONE TABLET BY MOUTH EVERY DAY TAKE ONE TABLET BY MOUTH EVERY DAY SOLD: 08/10/2019 [facility] 40 mg 05/12/2019 12:00:00 AM EST tablet 30 TAKE ONE TABLET BY MOUTH EVERY DAY TAKE ONE TABLET BY MOUTH EVERY DAY SOLD: 07/10/2019 [facility] 35 mg 04/18/2019 12:00:00 AM EDT tablet 4 TAKE ONE TABLET BY MOUTH WEEKLY TAKE ONE TABLET BY MOUTH WEEKLY SOLD: 07/27/2019 [facility] Losartan Potassium 50 MG Oral Tablet LOSARTAN POTASSIUM 12:00:00 AM EDT tablet 30 TAKE ONE TABLET BY MOUTH AFTAB RY DAY TAKE ONE TABLET BY MOUTH EVERY DAY SOLD: 06/26/2019 [facility] 35 mg 04/18/2019 12:00:00 AM EDT tablet 4 TAKE ONE TABLET BY MOUTH WEEKLY TAKE ONE TABLET BY MOUTH WEEKLY SOLD: 09/25/2019 [facility] 35 mg 04/18/2019 12:00:00 AM EDT tablet 4 TAKE ONE TABLET BY MOUTH WEEKLY TAKE ONE TABLET BY MOUTH WEEKLY SOLD: 06/26/2019 [facility] 35 mg 04/18/2019 12:00:00 AM EDT tablet 4 TAKE ONE TABLET BY MOUTH WEEKLY TAKE ONE TABLET BY MOUTH WEEKLY SOLD: 08/30/2019 [facility] 35 mg 04/18/2019 12:00:00 AM EDT tablet 4 TAKE ONE TABLET BY MOUTH WEEKLY TAKE ONE TABLET BY MOUTH WEEKLY SOLD: 10/27/2019 [facility] Losartan Potassium 50 MG Oral Tablet LOSARTAN POTASSIUM 12:00:00 AM EDT tablet 30 TAKE ONE TABLET BY MOUTH AFTAB DAY TAKE ONE TABLET BY MOUTH EVERY DAY SOLD: 07/27/2019 [facility] 50 mg 04/18/2019 12:00:00 AM EDT tablet 30 TAKE ONE TABLET BY MOUTH EVERY DAY TAKE ONE TABLET BY MOUTH EVERY DAY SOLD: 08/30/2019 [facility] 5 mg 04/09/2019 12:00:00 AM EDT tablet 90 TAKE ONE TABLET BY MOUTH EVERY EVENING AT BEDTIME TAKE ONE TABLET BY MOUTH EVERY EVENING AT BEDTIME SOLD : 07/27/2019 [facility] Insurance Providers Payer name Policy type / Coverage type Policy ID Covered constitution party ID Covered constitution party's relationship to alvarado Policy [place] Plan Information MEDICARE BLUE PPO 306 [id number] SP [id number] EXCELLUS BCBS B [id number] S VYM [id number] MEDICARE BLUE PPO 306 [id number] SP [id number] EXCELLUS BCBS MEDICARE [id number] Elicia [id number] EXCELLUS BCBS MEDICARE Medicare [id number] MEDICARE BLUE PPO 306 [id number] SP [id number] MEDICARE BLUE PPO 306 [id number] SP [id number] ANSI-Commercial [id number] ANSI-Commercial [id number] ANSI-Medicare Part B [id number] ANSI-Medicare Part B [id number] ANSI-Commercial [id number] ANSI-Medicare Part B [id number] ANSI-Commercial [id number] ANSI-Medicare Part B [id number] ANSI-Commercial [id number] ANSI-Commercial [id number] [place] Medig[place] B [id number] Self [id number] [facility]-Commercial Plan Medigap Part B [id number] Self [id number] Medicare (Part B) Medicare Primary [id number] Self [id number] BCBS Medicare Blue U/W Commercial [id number] Self [id number] Statewide Independent Ppo Commercial [id number] Self [id number] [place] P[place] Medigap Part B [id number] Self [id number] [facility]-Commercial Plan Medigap Part B [id number] Self [id number] Medicare (Part B) Medicare Primary [id number] Self [id number] BCBS Medicare Blue U/W Commercial [id number] Self [id number] ANSI-Commercial [id number] ANSI-Medicare Part B [id number] ANSI-Commercial [id number] ANSI-Commercial [id number] ANSI-Medicare Part B [id number] [facility] Medigap Part B [id number] Self [id number] Medicare Natl Gov't Servi Medicare Primary [id number] Self [id number] [facility] [id number] 93 [id number] ANSI-Commercial [id number] ANSI-Commercial [id number] ANSI-Commercial [id number] [place] Medigap Part B [id number] Self [id number] [facility]-Commercial Plan Commercial [id number] Self [id number] [facility] [id number] S [id number] [facility] Health Maintenance Organization (HMO) [id number] Self [id number] [facility] [id number] SP [id number] [facility] Health Maintenance Organization (HMO) [id number] Self [id number] [place] 200/700 [id number] SP [id number] [facility] Health Maintenance Organization (HMO) [id number] Self [id number] BCBS/Blue Card Commercial [id number] Self [id number] [place] P[place] Commercial [id number] Self fm [id number] EXCELLUS BCBS B [id number] S [id number] [place] Commercial [id number] Self fm [id number] [place]BS [place] PPO 302/307 [id number] SP [id number] BCBS/Blue Card Commercial Self BCBS [place] PPO 302/307 [id number] SP [id number] [place] Ppo Commercial Self Statewide Independent Ppo Commercial Self BC/[place] Of [place] Ppo Commercial Self BS Of [facility] Commercial Self [id number] Problems, Conditions, and Diagnoses Code Display Name Description Problem Type Effective Dates Data Source(s) 631033455 Benign hypertensive heart disease with c ongestive cardiac failure Benign hypertensive heart disease with congestive cardiac failure Problem 05/19/2020 12:00:00 AM EST MEDENT ([facility]) [id number] Chronic diastolic heart failure Chronic diastoli c heart failure Problem 05/19/2020 12:00:00 AM EST MEDENT ([facility]) Z95.5 History of coronary angioplasty with ins ertion of stent History of coronary angioplasty with insertion of stent [id number] 0 12:00:00 AM EDT [facility] E78.5 Dyslipidemia Dyslipidemia [id number] 02/17/2020 12:00:00 A M EDT [facility] I10 Essential hypertension Essential hypertension [id number] 02/17/2020 12:00:00 AM EDT [facility] I25.10 Coronary artery disease involving [place] coronary artery Coronary artery disease involving [place] coronary artery [id number] 02/17/2020 12:00:00 AM EDT [facility] [id number] Pure hypercholesterolemia Pure hypercholesterolemia Pr oblem 12/03/2019 12:00:00 AM EDT MEDENT ([facility]) [id number] Essential hypertension Essential hypertension Problem 12/03/2019 12:00:00 AM EDT MEDENT ([facility]) D72.819 [id number] Chronic leukopenia Problem 08/31/2019 12:00: 00 AM EST eCW1 ([facility]) D72.819 [id number] Chronic leukopenia Problem 08/31/2019 12:00: 00 AM EST eCW1 ([facility]) [id number] Dystrophia unguium Dystrophia unguium Problem 12:00:00 AM EST MEDENT ([facility] I20.0 Unstable angina Unstable angina Diagnosis 02/18/2020 10:4 0:00 AM EDT [facility] E78.5 Hyperlipidemia, unspecified Hyperlipidemia, unspecifie d Diagnosis 02/17/2020 05:30:02 PM EDT [facility] I10 Essential (primary) hypertension Essential (primary) h ypertension Diagnosis 02/17/2020 05:30:02 PM EDT [facility] I25.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 Atherosclerotic heart disease of [place] Diagnosis [facility]17[facility] Procedure Description Date Indications Data Source(s) XTRNL ECG < 48 HR RECORDING 07/22/2020 12:00:00 AM EST MEDENT ([facility]) XTRNL ECG CONTINUOUS RHYTHM PHYS REVIEW&INTERPJ 2020 12:00:00 AM EST MEDENT ([facility]) Needle electromyography, each extremity, with related paraspinal areas, when performed, done with nerve conduction, amplitude and latency/velocity study; complete, five or more muscles studied, innervated by three or more nerves or four or more spinal levels (list separately in addition to the code for primary procedure). 07/08/2020 12:00:00 AM EST MEDEN T ([facility] ) Nerve Conduction 9-10 Studies 07/08/2020 12:00:[address] [facility] ([facility] ) ECG ROUTINE ECG W/LEAST 12 LDS W/I&R 05/19/2020 12:00: 00 AM EST MEDENT ([facility]) MANUAL THERAPY TQS 1/> REGIONS EACH 15 MINUTES 12:00:00 AM EDT MEDENT ([facility] ) THERAPEUTIC PX 1/> AREAS EACH 15 MIN EXERCISES 12:00:00 AM EDT MED[facility] ([facility] ) MANUAL THERAPY TQS 1/> REGIONS EACH 15 MINUTES 12:00:00 AM EDT MEDENT ([facility] ) THERAPEUTIC PX 1/> AREAS EACH 15 MIN EXERCISES 12:00:00 AM EDT MEDENT ([facility]) MANUAL THERAPY TQS 1/> REGIONS EACH 15 MINUTES 12:00:00 AM EDT [facility] ([facility] ) THERAPEUTIC PX 1/> AREAS EACH 15 MIN EXERCISES 12:00:00 AM EDT MED[facility] ([facility] ) MANUAL THERAPY TQS 1/> REGIONS EACH 15 MINUTES 12:00:00 AM EDT MED[facility] ([facility]) THERAPEUTIC PX 1/> AREAS EACH 15 MIN EXERCISES 12:00:00 AM EDT MED[facility] ([facility] ) MANUAL THERAPY TQS 1/> REGIONS EACH 15 MINUTES 12:00:00 AM EDT MED[facility] ([facility]) MANUAL THERAPY TQS 1/> REGIONS EACH 15 MINUTES 12:00:00 AM EDT [facility] ([facility]) THERAPEUTIC PX 1/> AREAS EACH 15 MIN EXERCISES 12:00:00 AM EDT [facility] ([facility]) THERAPEUTIC PX 1/> AREAS EACH 15 MIN EXERCISES 12:00:00 AM EDT [facility] ([facility]) MANUAL THERAPY TQS 1/> REGIONS EACH 15 MINUTES 12:00:00 AM EDT [facility] ([facility]) THERAPEUTIC PX 1/> AREAS EACH 15 MIN EXERCISES 12:00:00 AM EDT MED[facility] ([facility]) MANUAL THERAPY TQS 1/> REGIONS EACH 15 MINUTES 12:00:00 AM EDT MED[facility] ([facility]) THERAPEUTIC PX 1/> AREAS EACH 15 MIN EXERCISES 12:00:00 AM EDT MED[facility] ([facility]) MANUAL THERAPY TQS 1/> REGIONS EACH 15 MINUTES 12:00:00 AM EDT MEDENT ([facility]) Physical Therapy Eval - Low Complexity 02/23/2020 12:0 0:00 AM EDT MED[facility] ([facility]) ECHO TTHRC R-T 2D W/WO M-MODE COMPLETE REST&STRS ECHOCARDIO GRAM STRESS TEST Routine 02/18/2020 11:27 AM EDT 02/18/2020 03:27:08 PM EDT [facility] CV STRS TST XERS&/OR RX CONT ECG PHYS SI&R STRESS TEST, CARDIOV ASCULAR Routine 02/18/2020 11:06 AM EDT 02/18/2020 03:06:33 PM EDT [facility] TROPONIN QUANTITATIVE TROPONIN I Routine 02/18/2020 6:44 AM EDT 02/18/2020 10:44:00 AM EDT [facility] BLOOD COUNT COMPLETE AUTOMATED CBC Routine 02/18/2020 6:44 A M EDT 02/18/2020 10:44:00 AM EDT [facility] THYROID STIMULATING HORMONE TSH TSH Timed 02/18/2020 6:44 AM EDT 02/18/2020 10:44:00 AM EDT [facility] LIPID PANEL LIPID PANEL Routine 02/18/2020 6:44 AM EDT 02/18/2020 10:44:00 AM EDT [facility] COMPREHENSIVE METABOLIC PANEL COMPREHENSIVE METABOLIC PANEL Rou amanda 02/18/2020 6:44 AM EDT 02/18/2020 10:44:00 AM EDT [facility] ECG ROUTINE ECG W/LEAST 12 LDS W/I&R ECG 12-LEAD Routine 02/17/2020 10:51 PM EDT 02/18/2020 02:51:13 AM EDT [facility] ECG ROUTINE ECG W/LEAST 12 LDS TRCG ONLY W/O I&R ECG 12-LEAD STAT 02/17/2020 10:45 PM EDT 02/18/2020 02:45:25 AM EDT [facility] CV STRS TST XERS&/OR RX CONT ECG PHYS SI&R STRESS TEST, CARDIOV ASCULAR Routine 02/17/2020 10:29 PM EDT 02/18/2020 02:29:31 AM EDT [facility] THROMBOPLASTIN TIME PARTIAL PLASMA/WHOLE BLOOD APTT Routine 02/17/2020 9:13 PM EDT 02/18/2020 01:13:00 AM EDT [facility] PROTHROMBIN TIME PROTIME-INR Routine 02/17/2020 9:13 PM EDT 02/18/2020 01:13:00 AM EDT [facility] Therapeutic, Prophylactic Or Diagnostic Injection Subq/Im 11/16/2019 12:00:00 AM EDT MED[facility] ([facility]) ECG ROUTINE ECG W/LEAST 12 LDS W/I&R 11/04/2019 12:00: 00 AM EDT MEDENT ([facility]) Office Visit, Est Pt., Level 4 PC 08/31/2019 12:00:00 AM EST eCW1 ([facility]) Office Visit, Est Pt., Level 2 FC 08/31/2019 12:00:00 AM EST eCW1 ([facility]) Bone Mineral Density Test 07/01/2019 12:00:00 AM EST MEDENT ([facility]) Results ID Date Data Source [id number] 08/09/2020 10:20:00 AM EST [facility] Name Value Range Interpretation Code Description Data Trinidad rce(s) Supporting Document(s) SARS coronavirus 2 RNA [Presence] in Res piratory specimen by PEDRO with probe detection NEGATIVE [facility] This lab was ordered by [facility] a nd reported by [facility]. ID Date Data Source [id number] 08/08/2020 11:31:00 AM EST MEDENT ([facility]) Name Value Range Interpretation Code Description Data Trinidad rce(s) Supporting Document(s) White Blood Count 5.2 10 4.0-10.0 [facility] Hematocrit 39.3 % 36.0-47.0 [facility] ([facility]) Red Blood Count 4.16 10 4.00-5.40 [facility] ([facility]) Hemoglobin 12.5 g/dL 12.0-15.5 [facility] ([facility]) Mean Corpuscular Volume 94.5 fl 80.0-96.0 M EDENT ([facility]) Mean Corpuscular HGB Conc 31.8 g/dL 32.0-36.5 [facility] ([facility]) Mean Corpuscular Hemoglobin 30.0 pg 27.0-33.0 [facility] ([facility]) Red Cell Distribution Width 12.9 % 11.5-14.5 [facility] ([facility]) Neutrophils % 65.5 % 36.0-66.0 [facility] ([facility] Platelet Count, Automated 189 10 150-450 [facility] ([facility]) Eos % 2.7 % 0.0-3.0 [facility] Lymph % 24.5 % 24.0-44.0 [facility] Spink % 6.7 % 0.0-5.0 [facility] Baso % 0.4 % 0.0-1.0 [facility] Immature Granulocyte % 0.2 % 0-3.0 MED[facility] ([facility]) Nucleated Red Blood Cell % 0.0 % 0-0 MED ENT ([facility]) Lymph # 1.3 10 1.5-5.0 [facility] Neutrophils # 3.4 10 1.5-8.5 [facility] ([facility]) Eos # 0.1 10 0.0-0.5 [facility] Spink # 0.4 10 0.0-0.8 [facility] Baso # 0.0 10 0.0-0.2 [facility] ID Date Data Source [id number] 08/08/2020 11:31:00 AM EST [facility] ([facility]) Name Value Range Interpretation Code Description Data Trinidad rce(s) Supporting Document(s) Glucose, Fasting 110 mg/dL 70-100 [facility] ([facility]) Glomerular Filtration Rate Laboratory test result MED[facility] ([facility]) <content>Units are mL/min/1.73 m2</content>
<content></content>
<content>Chronic Kidney Disease Staging per NKF:</content>
<content></content>
<content>Stage I & II GFR >=60 Normal to Mildly Decreased</content>
<content>Stage III GFR 30- 59 Moderately Decreased</content>
<content>Stage IV GFR 15-29 Severely Decreased</content>
<content>Stage V GFR <15 Very Little GFR Left</content>
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
<content></content> Blood Urea Nitrogen 26 mg/dL 7-18 [facility] ([facility]) Creatinine For GFR 0.96 mg/dL 0.55-1.30 [facility] ([facility]) Sodium Level 143 meq/L 136-145 [facility] ([facility]) Chloride Level 107 meq/L 98-107 [facility] ([facility]) Potassium Serum 4.5 meq/L 3.5-5.1 [facility] ([facility]) Calcium Level 10.7 mg/dL 8.8-10.2 [facility] ([facility]) Carbon Dioxide Level 29 meq/L 21-32 MED[facility] ([facility]) Anion Gap 7 meq/L 8-16 [facility] ([facility]) ID Date Data Source [id number] 05/09/2020 12:00:00 AM EST [facility] Name Value Range Interpretation Code Description Data Trinidad rce(s) Supporting Document(s) 2019-nCoV RNA XXX PEDRO+probe-Imp [facility] This lab was ordered by [facility] and reported by [facility] ID Date Data Source [id number] 03/17/2020 10:43:00 AM EDT MED[facility] ([facility]) Name Value Range Interpretation Code Description Data Trinidad rce(s) Supporting Document(s) Magnesium Level 2.3 1.8-2.4 [facility] ([facility]) ID Date Data Source [id number] 03/17/2020 10:43:00 AM EDT [facility] ([facility]) Name Value Range Interpretation Code Description Data Trinidad rce(s) Supporting Document(s) Glucose 97 70-100 [facility] ([facility] Blood Urea Nitrogen 21 7-18 [facility] ([facility]) Creatinine 0.86 0.55-1.30 MED[facility] ([facility]) Glomerular filtration rate/1.73 sq M.pre dicted [Volume Rate/Area] in Serum or Plasma by Creatinine-based formula (MDRD) Laboratory test result MED[facility] ([facility]) Sodium 140 136-145 [facility] ([facility] Carbon Dioxide 28 21-32 [facility] ([facility]) Potassium 4.4 3.5-5.1 [facility] ([facility]) Chloride 106 98-107 [facility] ([facility]) Albumin 4.0 3.2-5.2 [facility] Calcium 9.8 8.8-10.2 [facility] ([facility] Phosphorus 3.0 [facility] ([facility]) ID Date Data Source [id number] 02/18/2020 12:07:24 PM EDT [facility] Name Value Range Interpretation Code Description Data Trinidad rce(s) Supporting Document(s) &PDF [facility] UZWJNk6sAfXJZzGw66/MAUxnDJUfk7IqBFnvWPp0YTouRAJuY9NltEjwDZDSH3PQAEwIPAzIZP7dJIAi yKE [file] lVCCAySxLTg7YnQ0e0MmH578BeUyJ2PcFu+QZjKekoPoJdvULmsyyzFNBqmZlQm9dmMHsm2UTomqm/product lister [file] 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 specialist/4JCYXeNYXt9O3D/IJnrHRrqU3dKBHaux+IomOpqvAnYb4v4FSvK4odmcjrhHofpkcZapxajUeGv5 [file] ICAgICAgICAgICAgICAgICAgICAgICAgICAgICAgICAgICAgICAgICAgICAgICAgICAgICAgICAgICAg DRFuRXWgKHOaOBTdRHJpHJMrHBTvWB0AWSMmRFZrNIPbHDXpLXHwXEPoNVIqBNUyAVDsGNGtGWUxPHZt ICAgICAgICAgICAgICAgICAgICAgICAgICAgICAgIC KlKGUiLBDeVXKaIDRlVXOyPHRiXRNtBNKvHGVnSLPwZH7FVGKlOAOxIBTxZDDtCXHaYKHjWVFtKBTqPI AgICAgICAgICAgICAgICAgICAgICAgICAgICAgICAgICAgICAgICAgICAgICAgICAgICAgICAgICAgIC LoGPOhHPJoEOWdPXWsUE7UZLFhPAZtYNPdZPOuVXSo ICAgICAgICAgICAgICAgICAgICAgICAgICAgICAgICAgICAgICAgICAgICAgICAgICAgICAgICAgICAg BECoGNDuMNEyCTYpNECdWEIcVZLaVSBmDA4OFZTnPNFkPMQxVBDxUTXmHFUaCDBpUBYmWILoMASrBTFm ICAgICAgICAgICAgICAgICAgICAgICAgICAgICAgIC JeIFFgIEXiNXKuCSVnGIRrHLQwMRKlINUhVAFmVZYqRYCyYR3DHEScGEMgKFAiCBXwGRPbNPArAIIhMZ AgICAgICAgICAgICAgICAgICAgICAgICAgICAgICAgICAgICAgICAgICAgICAgICAgICAgICAgICAgIC QvWRFqLSWiDAKhKHPiQKTwIG0LZIUjBZPcSHNzRPBi ICAgICAgICAgICAgICAgICAgICAgICAgICAgICAgICAgICAgICAgICAgICAgICAgICAgICAgICAgICAg ZBHmCUYeZYRnGMYhKRIePZOzFQFsHJFjWFKzGS9QNWHzHAQrGYFjNWCbTPMbAVUzRGClKGNxZGXwYARq ICAgICAgICAgICAgICAgICAgICAgICAgICAgICAgIC ChGHIuOXEeJQMtJLRzNBWyVZClLCPjEUZrOPGuYPKgWLJuINUgBM3BONBgWUHmFPCsXQZkFKJhUGNrPG AgICAgICAgICAgICAgICAgICAgICAgICAgICAgICAgICAgICAgICAgICAgICAgICAgICAgICAgICAgIC WbETJaBJTeCHIhVKXhIMFxPIVoDT2YGLLgVNOsXVYr ICAgICAgICAgICAgICAgICAgICAgICAgICAgICAgICAgICAgICAgICAgICAgICAgICAgICAgICAgICAg POSdBWPmIREyXUZaXGTuCZXqIVWbEHGyZGMfONNdRT0IJA13jYNdl0T2ROItYD8xgqv/Wq7YPUyezwXk mUSuIP3TSmXtPZ1ywx5VFmOaPW3jdh8RLOhTWhSrR2 B9aRGeKEUdIAHKJzRxV77rMJztSs92XPccIQTlZeIuZLy1Ge0PQqTqX5ibLHVoArG0CNSoUxG3GDEjQk A9WWRiSpAhPBPmWFUzYC4EYQXjP336rxZfDZ8OLj0AJaPkJK5zki4IOPObRZUyUitNEkr1GGayKS2ZnI TlF5QxmDTgq0pSJpWwO3DEWFBwQJVkCr2RCGNqPwFv GZHpHWrxCA4pDJPySCSWsHpfydT9NC8ZRI5mlmUlTG8BPcQyNw4lCi1PPwYnI1FoU1VtCVPeLBMEFAgy VI4OXZHzLBJ3WAN3QHExAMBMIuEfL62xOP0OX9Dyn26dZkX5AODhJmWvKNxiYS84kPcxxvMzuDHrpEup YA6EPr1+DQplbmRvYmoNCnhyZWYNCjAgNDMNCjAwMD QpYNAuDKHxXwS2PxToGf4OBNErDGKpZVJyKrXwVTVxHHAmJHcyAJWwYOmcYbM1CMFpTDDkRH3QAlIxZT WdCUI6PiZdHNDsFAStfv9UFNViXCPiFON4OvJaFQByAJOtZAgxTTTrBBRaPBr3UUDvODEcBR1PFrKuRQ XiDLR0FXUuXAUwWJCsuh7VIYQeMWSgDIU3HxVuADFi GIZzWDbuVZKqWDB8WxI7KIViLIWzFX7PToBqTRMfHVwaRueeXGOdBVOpjw0ZXXUgYCSoEQZoQtVcAOGe BWKgCJhcIYElJFO4RhG3PVPaZOLvPR6VMnFfXHImRHr8EcGoHGCuEPHdib2VJWExFCGpFNk2WQRsHQDt DYHrAJmxUBTxMAVxBHx4PTCdPQCkLC9QCcLuFPHcTD SqRrCbAVVzMRAavz0ICZXhAXRxLtGmDEGiIUDlFQToEIkyTXVoAMZuTNVcNPAeYQTqNT8BAnVbZXJcDY G0FFrpLINcRMQgwp4CZUYqOPHlCwsmIqNdXKWlZSWxTEshBVThHEXdDVE0VLEyCEJqTN7YOnFhXLTnQa O5HxJhSLHzDLIhub7ELGAzVBHcMBUwXZAtMXPxEMDq YHzlRZPsVPC9VdL1OBGaLGWxZA1JFrAnDLZyCmVrActcIVLvJVHgzv2KSHBbUTQgQRUsXIFhIAWvSRPn XCpoGUXbBDW8KQL4VKAkJTCvFQ2SGbPqXRLkRlz1FsCvMXCzUTRvpr6UZEUnILP0SqM0YNFwZJUbJQYr FNxjTYBgFEL9WUh2GHQiEORyIF3QSeLrYOLqBBRiJJ xtQUZuFJQfwf2DOIJvIGF4EWZ3WPSkCVZoYBFaAHnmKQIdMEL8VCR7SCTyMHIgIY5XMpStZGFtEoR4VG UnVKSsZRMdvk8VDAVlAVM6KXL9WlLbWRQgFVTdOIkhEYPsDIT2OlD5UUNsDWRgNL6ZHjLpOEWgDoa7RT WxOFLvANSwna2GZJAwYUP8YCy0FjQaWKSmFRFdNNei UYYmJPj5ChHmALUnUPCxQF5HWxGdHKIzPlbbHSpkVENeCUFsmk1OTYEfADD7YMVrSkUsHBXqISNzGHhb YEFnOMdnXNTvBSJpGBMjYA6UVuYhFCBmJQU9ZbzxGKCjOQZjad1WfAEmkGcwdc5RJCuHSr0CoFjcWKUb HHjzSf1szHQ8AbCqDLQZUv4VoeAcRECiGUIIYAxoCH BoJSKlGye1SMB7BgZvDTElK0LwOmViSJZ5M6PkDoA9BdW5KzT6YlHgQLN2IIWpVoFkLEO1DTIbM9D7SE YhQUKeSYu1Rus+SS2jFVg+Ss1Px4PjorC7lqUnYKb6Gvd5QC7EQAMPD7PDLp== ID Date Data Source [id number] 02/18/2020 11:09:00 AM EDT [facility] ([facility]) Name Value Range Interpretation Code Description Data Trinidad rce(s) Supporting Document(s) HDL 56 40-60 [facility] Cholesterol 162 120-200 [facility]) Triglycerides 254 [facility] ([facility]) Cholesterol in LDL [Mass/volume] in Serum or Plasma by calculation 55 [facility] ([facility]) Chol/HDL Ratio 2.9 [facility] ([facility]) ID Date Data Source [id number] 02/18/2020 11:09:00 AM EDT [facility] ([facility]) Name Value Range Interpretation Code Description Data Trinidad rce(s) Supporting Document(s) Platelets 181 130-400 [facility] Red Blood Count 4.20 4.70-6.20 [facility] ([facility]) White Blood Count 5.3 4.3-10.9 [facility] ([facility]) Hemoglobin 12.6 13.0-17.0 [facility] ([facility]) Hematocrit 37.6 39.0-50.0 [facility] ([facility]) ID Date Data Source [id number] 02/18/2020 11:09:00 AM EDT [facility] Name Value Range Interpretation Code Description Data Trinidad rce(s) Supporting Document(s) Troponin Laboratory test result [facility] ([facility]) ID Date Data Source [id number] 02/18/2020 11:09:00 AM EDT [facility] Name Value Range Interpretation Code Description Data Trinidad rce(s) Supporting Document(s) Calcium [Mass/volume] in Serum or Plasma 9.2 [facility] ([facility]) Potassium [Moles/volume] in Serum or Plasma 4.0 [facility] ([facility]) Chloride [Moles/volume] in Serum or Plasma 110 [facility] ([facility]) Sodium 145 [facility] ([facility]) Carbon dioxide, total [Moles/volume] in Serum or Plasma 26 [facility] ([facility]) Creatinine 0.69 0.6-1.5 [facility] ([facility]) Glucose 91 70-100 [facility] ([facility]) Blood Urea Nitrogen 16 5-21 [facility] ([facility]) Glomerular filtration rate/1.73 sq M.pre dicted [Volume Rate/Area] in Serum or Plasma by Creatinine-based formula (MDRD) Laboratory test result [facility] ([facility]) ID Date Data Source [id number] 02/18/2020 10:54:59 AM EDT [facility] NT INFORMATIONPatient MRN Name Date of Age Gend*PT [id number] Jaz Mckeon Jessica 1955 64 years F OBSPT Location Admission Date/Time Visit ID Attending ProviderD-[id number] 02/17/20 1730 --- Eloy Rea MD([id number]) EPI ID CSN Admitting Provider [id number] Balwinder Oliveros MD([id number]) [facility] DISCHARGE SUMMARYPatient Name: Jaz Mckeon of : 1955 Age 64 yearsPrimary Physician: No primary care provider on file. PCP Phone: NoneAdmission Date: 02/17/2020 Discharge Date:She will be discharged from [facility] Diagnoses:Principal Problem (Resolved): Other chest painActive Problems: Coronary artery disease involving [place] coronary artery Essential hypertension Dyslipidemia History of coronary angioplasty with insertion of stentDischarge Medications:Current Discharge Medication ListSTART taking these medications DetailsamLODIPine (NORVASC) 10 MG tablet Take 1 tablet (10 mg total) by mouth dailyQty: 30 tablet, Refills: 0CONTINUE these medications which have NOT CHANGED Detailsaspirin EC 81 MG EC tablet Take 81 mg by mouth dailyCholecalciferol (VITAMIN D) 50 MCG (2000 UT) CAPS Take 2,000 Units by mouthdailydocusate sodium (COLACE) 100 MG capsule Take 100 mg by mouth 2 (two) times a dayfamotidine (PEPCID) 40 MG tablet Take 40 mg by mouth dailyfluticasone (FLONASE) 50 MCG/ACT nasal spray 1 spray into each nostril dailyibuprofen (ADVIL,MOTRIN) 200 MG tablet Take 400 mg by mouth daily as needed forpainlevocetirizine (XYZAL) 5 MG tablet Take 5 mg by mouth every eveninglosartan (COZAAR) 50 MG tablet Take 50 mg by mouth dailyMultiple Vitamins-Minerals (PRESERVISION AREDS 2+MULTI VIT) CAPS Take 1 capsuleby mouth dailynitroglycerin (NITROSTAT) 0.[address] 0.4 mg under the tongue every 5(five) minutes as needed for chest painoxybutynin (DITROPAN-XL) 10 MG 24 hr tablet Take 10 mg by mouth dailypolyethylene glycol (GLYCOLAX) 17 GM/SCOOP powder Take 17 g by mouth daily 1capful= 17 grisedronate (ACTONEL) 35 MG tablet Take 35 mg by mouth every 7 days On Saturdaysrosuvastatin (CRESTOR) 40 MG tablet Take 40 mg by mouth nightlyFollow Up Instructions:The patient was given an after visit summary.Patient will follow up with pcp in 3-7 days.Items needing special attention:Cbc/bmp with pcpBrief Hospital Course:In summary this is a 64-year-old female with past medical history of coronaryartery disease status post stent in 2001 , dyslipidemia [facility] to hypertensive urgency she alsonoticed some shortness of breath patient was noted to have some sinus pauseshowever her rest of work-up is unremarkable we will obtain a stress test todayif negative patient can be discharged later today as his son her symptomatologyreseleuterioShe told me that her blood pressure was above 200 when she was at home and shethinks that is what precipitated all of her of her symptomatology she reportscompliance with her medications her blood pressures currently acceptableI discussed with the patient if her stress test is negative will proceed withdischarging her home and she can follow-up with PCP as an outpatientPatient reflects understandingPatient was advised if there is any exacerbation of symptoms seek medicalattention immediatelyDischarge Exam:Blood Pressure: BP: 144/82 Pulse: Heart Rate: 66Temperature: Temp: 98.1 F Respirations: Resp: 18Admission Weight: Weight: 72.6 kg (160 lb) O2 Saturation: SpO2: 96 %Discharge Weight: Weight: 72.6 kg (160 lb) BMI: Body mass index is 27.46 kg/m .Physical Exam General alert, in no apparent distress HEENT Normal Lungs normal Heart regular rate and rhythm Abdomen soft, non-tender, non-distended, no organomegaly or masses Musculoskeletal negative Neuro normal without focal findings and mental status, speech normal, alertand oriented [id number]:Imaging:Stress test pending today if negative will proceed with dischargeProcedures:noneConsultants:noneRecent Labs:BMP:Lab ResultsComponent Value Date NA 145 02/18/2020 K 4.0 02/18/2020 CL 110 (H) 02/18/2020 CO2 26 02/18/2020 ANIONGAP 9 02/18/2020 CALCIUM 9.2 02/18/2020 GLU 91 02/18/2020 BUN 16 02/18/2020 CREATININE 0.69 02/18/2020 GFRAA >60 02/18/2020 GFRNONAA >60 02/18/2020Cardiac:Lab ResultsComponent Value Date TROPONINI <0.05 02/18/2020CBC with Diff:Lab ResultsComponent Value Date WBC 5.3 02/18/2020 RBC 4.20 02/18/2020 HGB 12.6 02/18/2020 HCT 37.6 02/18/2020 MCV 89.4 02/18/2020 MCH 29.9 02/18/2020 MCHC 33.5 02/18/2020 RDW 14.2 02/18/2020 PLT 181 02/18/2020 MPV 7.2 02/18/2020Hyperlipidemia:Lab ResultsComponent Value Date CHOL 162 02/18/2020 TRIG 254 (H) 02/18/2020 HDL 56 02/18/2020 CHOLHDL 2.9 02/18/2020 LDLCALC 55 02/18/2020Eloy Rea MD10:49 AMTotal time spent for discharge on date of discharge: 40 minutes Name Value Range Interpretation Code Description Data Trinidad rce(s) Supporting Document(s) ID Date Data Source [id number] 02/18/2020 10:08:21 AM EDT [facility] Name Value Range Interpretation Code Description Data Trinidad rce(s) Supporting Document(s) CHOLESTEROL @ 162 mg/dL (0-200) [facility] TRIGLYCERIDE @ 254 mg/dL (30-200) H [facility] HDL CHOLESTEROL @ 56 mg/dL (>40) [facility] PER NCEP ATP III GUIDELINES:RESULTS LOWE R THAN 40 MG/DL ARE SUGGESTIVEOF INCREASED RISK FOR CORONARY ARTERYDISEASE. RESULTS > OR = TO 60 MG/DL ARECONSIDERED A NEGATIVE RISK FACTOR. CHOL/HDL RATIO 2.9 RATIO [facility] INTERPRETATION OF CHOL-HDL RATIO CHD RISK FEMALE MALEVERY HIGH >8.3 >14.3HIGH 5.6- 8.3 6.7- 14.3AVERAGE 3.7- 5.6 4.0- 6.7BELOW AVERAGE 2.5- 3.7 2.7- 4.0PROTECTED <2.5 <2.7 LDL CHOL (CALC) 55 mg/dL (<130) [facility] PER NCEP ATP III GUIDELINES: OPTIMAL < 100 NEAR OPTIMAL 100 - 129BORDERLINE HIGH 130 - 159 HIGH 160 - 189 VERY HIGH > 189 ID Date Data Source [id number] 02/18/2020 08:40:57 AM EDT [facility] Name Value Range Interpretation Code Description Data Trinidad rce(s) Supporting Document(s) TSH,ULTRASENSITIVE @ 1.491 mIU/L (0.360-4.170) [facility] PERFORMED AT [address] [place] [address] [address] [place] N [place] [id number] ID Date Data Source [id number] 02/18/2020 08:40:57 AM EDT [facility] Name Value Range Interpretation Code Description Data Trinidad rce(s) Supporting Document(s) SODIUM 145 mmol/L (136-145) [facility] POTASSIUM 4.0 mmol/L (3.6-5.2) [facility] CHLORIDE 110 mmol/L (100-108) H [facility] CO2 26 mmol/L (22-31) [facility] ANION GAP 9 mmol/L (7-16) [facility] UREA NITROGEN 16 mg/dL (7-24) [facility] CREATININE 0.69 mg/dL (0.60-1.00) [facility] BUN/CREAT RATIO 23.2 RATIO (10.0-20.0) H [facility] GLUCOSE 91 mg/dL (70-99) [facility] CALCIUM 9.2 mg/dL (8.4-10.2) [facility] TOTAL PROTEIN 6.5 g/dL (6.4-8.2) [facility] ALBUMIN 3.6 g/dL (3.2-4.5) [facility] GLOBULIN 2.9 g/dL (2.7-4.3) [facility] ALB/GLOB RATIO 1.2 RATIO [facility] ALKALINE PHOSPHATASE 75 U/L (45-117) [facility] BILIRUBIN,TOTAL 0.3 mg/dL (0.0-1.0) [facility] PLEASE NOTE:Total bilirubin results may be falselyelevated in patients taking Eltrombopag. AST (SGOT) 18 U/L (11-39) [facility] ALT (SGPT) 25 U/L (12-78) [facility] GFR >60 ml/min/1.73m2 (>59) [facility] GFR ( AMER) >60 ml/min/1.73m2 (>59) [facility] GFR INTERPRETATION [facility] --NORMAL KIDNEY FUNCTION OR MILD DISEASE - GFR >OR= 60CHRONIC KIDNEY DISEASE - GFR 15 - 59RENAL FAILURE - GFR <15 Est. GFR calculation based on the MDRDstudy equation, which assumes a steadystate for creatinine. Est. GFR should notbe used for medication dosing. ID Date Data Source [id number] 02/18/2020 08:40:57 AM EDT [facility] Name Value Range Interpretation Code Description Data Trinidad rce(s) Supporting Document(s) TROPONIN I <0.05 ng/mL (<0.05) [facility] Less than 0.05: Myocardial injury unlike lyGreater than or equal to 0.05: Highly suggestive of myocardial injuryCorrelation with rise and/or fall ofserial troponins, clinical symptomsand ECG changes is necessary. ID Date Data Source [id number] 02/18/2020 08:02:16 AM EDT [facility] Name Value Range Interpretation Code Description Data Trinidad rce(s) Supporting Document(s) WBC 5.3 10*3/uL (4.1-11.0) [facility] RBC 4.20 10*6/uL (4.00-5.40) [facility] HGB 12.6 g/dL (12.0-16.0) [facility] HCT 37.6 % (36.0-47.0) [facility] MCV 89.4 fL (80.0-95.0) [facility] MCH 29.9 pg (27.0-32.0) [facility] MCHC 33.5 g/dL (32.0-36.0) [facility] RDW 14.2 % (10.5-14.5) [facility] PLT 181 10*3/uL (150-450) [facility] MPV 7.2 fL (7.1-10.7) [facility] ID Date Data Source [id number] 02/18/2020 05:01:46 AM EDT [facility] Name Value Range Interpretation Code Description Data Trinidad rce(s) Supporting Document(s) EKG [facility] DDFTTi9gSsYPRaJkg3VyLgJyXGUoYS1zmzm3V4Y7aOCqP8CsvZMso4dqF7WaD6WkNJHbJGUWOF4OhWSp jb2 [file] p19cvf0XDcu9X30aFmTPcNilk2nxtD2/T6rH/frWL+nDm47p9qin95QE+/XnbuJ/3fv1TS/WYa6P+/[employer] rsf9+l/xG4zne0m3/pvz/[place]/Oe///YA8gv7X//6ZvWbXJXcL/gV3TwFjJVEnBTZQBdvgFLQR2yoqR/S hsIm2jvwh6tPabAp4fxeb7fTsoJk4jlr10nWnlPp1z sk13eEvbCi6pyr15ybONonWvnJ9buHFyG3ecJDhd6qrNYog4re9qim4og2ucp6El4uue2Pl2gx94Dhst bOxS6/4A76ZT7Msx/43sU9z9wphTTyWNKc5gNe2V4Rg6pjMivpcXVafmWTBymuyGvkAEG/rUUsLv6HkU kIweXzLv5JwGbXnvKiIl17qnmAxxdbNu32jotWwakh Lg08gtbL9lxEJnX0nsESat7jzVGqh7fm9bcz3yp3oaw9Nx5eke2Ny1dz09FrkoU1rkzlmW5uphX8r2em RGqZzVeLc7G3nhR9EG9pvcLWyoptp/vF1glfz2RRnaSbJzMycRJ9Up0Q5ic2hj5gKiqIhKmjbc1sGjjG dLxvii0eIk/SiCfyci9zPd/ZvExvdt6eCl/BmPmb5o kk8zt7vfw5Rd9kud7Qz6hqS2OwgfJ0aggijA2u2NzkI9u1VilB1i2TuxI0s8OyGXVqQ4MA6QA5gyC//3 Uun/tm48YV36rgbyk4dA3bGrPn2K5o3Yr+6DJPuhf/Q5M6wWU/sU1GH3C/c/xG1NdmZo/ZXA6laXR1Ga myHhgWT2SRf7KjY2+g7+KZZh6Xk/qlF7/1nwdPe4Vr kAjoA/XT76rW5Su0NyYu+E9/NXhOfzN9+rlA46Cv1G/KDhp8Z3eeswBoJjPJ8M6rCBEZo5JG//QYoE/Q J+gK+cmpJO8CawC/zE0egfPD2Vk/HvTTXw/16z6tOOMvuKl57V/np9lB7+A//G3o48367RiY97+bBv30 dwf/BF3Bf/qbPF9/tQX96+9Nf/3VnulDD/4F+tffm9 6teHbxfz+VSoPeQe+gC+gC+gB91HN+P6JKV7++v9KjK/it5KOG+v73fskBvP9DyY/doO+iT0pDd51O99 Dj/Zawrl7IK/tv8KF0hdBkRkORjOulouHarRs4Ry6XedtmIZ+7yu6sWdvz/559t6HiB+y5ix6lh+P7dX y/ju/J6a35lr3j4/H9uoOO+eycQolhZ083O/ou+mpF T88dq3D8b7OzR+mYu7vNmyE1l/A/IehoIwfGJ3QkvKjz+B8tr//dWvV/WQv8G/Rd/Pv0N/83r1Yyz1/3 ek1ldIQ/G/3d6O+e9T/d6O/G/2kqoee43EyforY18o7mU//nvXWicj4kAez5jR5FLw/3XNnMMSCxVkx+ 0UoP8A/aP8My5eiEKCHR/XH6gIEL+nC6wE3O+nfxh3 2N9OWssb62ebLos3MX1p6qv9+16s9Xt3CY/wp7itu36v1kjGdq/saJQL+S0K+PQtDWyQ3T2CrMpqMH+q PN1XJnDb9HpDT/PL1UQr+6adAV/Aq6gd+l7lwpN2p2wfGv1Uxvem9BE/61Cvg7pnFpXpRQavJduT/QT3 /DyUboVzcNuoJ++psnV09/b/vN4kglktpaX/Us1L/B v4s/6Vkveqgr2UpU21HR6Km30Cr2D+hXNw1+9Df0q+AS4Biym1Bu6AoW9x9kzFnLGw/5N4c09kT8oXGw oKO/Im0r4NBtw4+YRCUlp3uN/SrT6K/i/Srer+G4xbErA8pDvXR64Ft6xchPa4Aq5V+S/vU3n/noVzeN 0rx0VbDwh3n+Ew0rqhe7DC22yP/D+zW8X0N/De/X8H 4N/ZW673Rh5Z5oMdS173Rneg6+Osazo7+gX9At78vBN6d1V/wOgq3lEf//r4R+ipQ7yirgI4r/KPSrOM 2jqL2XIZPTJI384wzt3Ccx7zZCf65d1JV71W2Q/ZzOks2y3IoZxE7WV+93YTwf/SrHydGvvsnpS3/9fe lDD/59+DNd4+3oV0k/+lXyH/3qmwhP+oC29FLWp3kG UyOm4y2psiR/FW5k03hOzsOf5sRW8Af19+hXl+7gX6gf/V166A03R/6fsKk1coa89B7x/eo/3icjhsy4 bjU++kA9E/IQ2DG8FG7ZcG6z8ntflDkB+gL/An2Dvp/jmn2VWdku5CjcnrGYK9OM+AX1jKo/0GpD4Ew8 Hry8ocqcj96yqK2wfE7L5BM2UPYg9i/r+qGa0TF4HV 90j/q//tr5rs+lRffgOfrVOvPAubL4+85PPUe/2pLpQ/eT/sk2fov3oru4P7+OfmXxnBLr/eA//dVo6+ bjcJyq8HF6Uy/05Pm1eraOu9+2XbQ44kb44F/pV+IK8qfHa+rnZejAnz2rchcM2vXjX/5eU9riH/v0K9 tnQ/RcT/OLi5q8h26E//orIf+jX42o/+oR4TzX3Jud byPCbt5y8F9TgdR3JvQ/a8Ds4PjyZ92O+uQYpU+O0K/ifYV+agySa3lnD8GX/Lw9Cv6Xc1x06Mx1GjnR yGGZuYNrAJAwMl5Cp16PjgpwE9ZhiDuargc15Nx0AFixk6BwzNtb4ThTDo916pGbG58Vx54yaZNtAH/9 hHBb8Hvzlb0/OEK/NsnLG5cHgFAVgtZ8OU+NtIPfQV +iF8CyIa//77D6/i5baNwUG+gCuoA+2d83aK4c1iqbNbP0pz2AX4/PxeKweJAcC9xyYbvMLk7y/h572r Du7u2tx00dhnuL3E629L5/jfj7MB0GE/axWLh7X1+TbrusPdcGjbsuO24h8tHbpDjbGKsVs/nZF+hhj4 2yG/Xs4j/01KfE4uWflNo67xyGzRJXneeKj4K/gr/s cxwC1GLo7E4qCbwtp328YKvjmZZ9AefcJoa6ebzsR0hOU2tfn/sI+1WU3QJ+Fd6HwCG/jf1EvsM/gm6g G+gO+xcyoLO8CL4QvPGg93t8gacLRcxU5re/m2BRvp68H+yBA807ZTc4ieaLMk/tKMqS6ncpEVePSTDr 4MiTEd26qUW9uOag7G5g8Jn/fFn8GaD2aglk2ElZN/ YJ4EPsExX/SvpEPTU/e1Zfubu5Ic7MkpCgJD+gL62yG/GhR08VcfR3MsiTDDE//ibm4GzUa//ShNM5UL 5U2Koj3A6G9BR+Bx3vN/vBq97DG/+szi2MMnn/NLE/OAf6O/B+tH29H72gYK3M4m/2Alz1Uku4Q+fAeM b+4MT+4MT+4MT+4BwYzwPjeaC/A/2d6O/E+50d9A5+ WS6UDuNZsx7Z3Rwu/X9812v+ztr/kMT1pRcC66JTlaMw/MJ3VA1kqnSwLXz+eII2p1dayKx/Exfr0SC/ T631/tQJ+gS/4qzlIi85wpeXsk0ZUB3bslV+wL9A3+Av/Iqv6M1i2QoKE6Iro9JHw/0bgmlf2DxRM9G/ BK4O3GT/T1PUj/6agd/Z25Ab7LqxV/FHGeh4b/2j6b OexB5giyz6ayRqQJrcM7IQ5NX7E6IS98LxBgqIG6/dUb+DH+/XF+gb7dZ+8Iz8e5p0V+MMk7zBuiIwdW 9AR3/EIZ7mf1R/E4Kh8qWN/uBceL/JN4bbuT/9XXi/C+N5o7/WA4s71tYu1afkuzTu4IwcjbshHC5g31 nj/WJ/cGJ/wT131919h/9GitL9vpfunsT31l6h/dVW 61/F/yIjs1KxS1/1V7E/mYyt8CyanOI6zgB4NjIt/mQOusPu6jbgvg7xeJ82ea5+pU3RC0skdNg9v2kn yN854Ah209BMQ3nj3szyfw//qnqZCxY4q7jE056sC7M/WbJY2XVw1G34Gr8QudD/5mftZd/QvsC/UE/t D0ppB8COWr+mUvtHKrVfptJBr/4JNDH0ZH3YQgMO5Q P4hiYPVGw7VNUE2CWWa47+hw3Y8Q41+yjsp2ybqbEQaQA8iabB/SpkG/pVpgfoA/HfagMotnd3m03JTv +dts0EEF222p+o+AwELo5pnvp/lR9m7Bcc+lXwT/XZ6ipyKF+t6On3n54/7q/db2fG+jfoZ/84nylsw9 uuFumz/l829IX9xS9+96Nf/T6kSP/oK5/h6++WqPPr 4312bg8zHq6wp/vYFc+fdmDebwyn0iT/2CtG93YpJ7/7jl5Lw5Ah7QRHWRvLwZ43Xpawmg5L+ 73XRFhxwurrbodhN62Uu3v4MJvR4xI4iuxHT2m9+nAnuj9hUxxnf9Tyt8eg7I1N1xm63hnWbw/5a7Kdo dHn4INkk7LwgIZp9Os1UZ3lN6WF+Mt1j2YkrpU0io3 KKd6OwJ2u+kjFZ60p9bnLg7PzCxx3NZB003qEaOL/oV5nG/OwddKn/TtbDsmF2He9m1nK2BF9UPCy+9N cNdMdzor++UM9C/WXfUK/zZrrKvqEL/8LO8h2dnd4PL2kpoAybQ/Bv78atPzzc62OlYsaNiaM6lf+eS2 Up8yz6tQ19rN8/78L/N/SrqHPX+clzu+ylO+gddAFd pk42FB98X+3kM00xDg5CJom1VOBqlRiP16mNdclcg798zVtU5Mq8L/Ijg0m97mcw+0Zd7zR2ruKDy8Bq wD/Af/o7g+f0V4M+GRxJT26nhkkbnJZ5x1qIy7C/6VxcLQwdukkS7q1Gd4ZyQ+as61Esygi6PnaGXQ/Q B/rw5kngr/qytc8qxAMnIS/3a7E/mOkF/mJwz1fiD9 744Cen2WiDHm48J/3lL580cK/AP8A/wD/BX/9fEwW/gt9AN/LRxT8Fkt4Lx5M8vzqTU/iA9z2u7T207a u1Ud+vjQ5+DV5AJ5AH2NSdhU4L929qVXg4gCuhraJJy9KisH/8izv2MpNF19XahHOD/vrn3qoG+lWmO+ k4lb8qeo2hkk0Pq6clZk8P+rJ6qaxWsWK3gjjlh6Ki +umM0Gh7oOixnwRLu7QT7wbeHijYwhC/ZFrzs+kCDWZ0BDCN03pc2td1v5JD32wg3Exk9ilRkel1T+gb /HWe36z+X7NOx7a+Cu33ZSCKST8K10mbki0KMiQLrq99Izvkw6t/jWct65YbK81M/VB648h2q44l9gFJ /sVum6XcngW9KTNR/lS99Y74pp/Bj+839KusH+PZa/ /IQr/U1KGh36zq/Vopt8ja/OZUkwWLvqm3e2QIAvSvT/7zjPU6flg/FYFvCttYzjB3marTfGNdEPhIW+ pfqH+SPmjwus4iunIoiDN/W0Cv/INftB6wr6D+QUd/f5LkDaa1P7R3lq2Pd8X/oZ4F+gZ/7S94q/469g w6ijP25FI33dunL+htgH+HJp297P374Lbw+0QSE7Xb dOdmBZcaRdhPp18j63N+8l7rI++1n+N8dr4x046Ev/S3o7+65pmr8hjLm63wZC/6i/AP6h60JXwa7U+g b/Dj/Qrer6C/qebwaN5J7rpu1C4J/DJ0H9AamF7gl9DO/mmrl1old0L5E5n/ssCP/grer+O9CaC8bT65 zbVJUY1IalQYn9tWQrh34GTOue9dhwNO7ow40Fqqld qjjzq/9vQtJkP273/M8dfL63+Pj7YLg3C/1QrCJp5Zfg6/Dv3KcX/EW15d77w+Trxf7A/6rPOxPgfoE/ Elaine/LorXL9gMtRpnm+2h/0WfvdPmv/3mno65et5/6+v993hvkBMmIWZhIqh/8UvJr8n68hEjM/wT/Br+ BX8KO/WvuhjvNXrvh+fc2Utm9LJi0O+SvH+SvH+SvH +SvH+SvH+SvH+Ss3vF/D+tU7R9lxXHAnt/8RVw549WeYJ8Z/Cl753Fe0Xjz171MgT02bm5Tj/sdq6onq Wu97nL/STH/1F6e92D43zlDbwh3T/lgs1D3b/zsg3NspCT/qR7/a8S0f/VbdYdhsc5hl4CG1jm76nZ9d 19+YkU30ofu25/jNhUCqkbO14k/j0Ue66Wbq7/SjXz QVyuTpzaFkh46k/OOdR/E56AFq9u/1cAmmX120/Pp1wChPZ88r9ZfNj+oSz/b1V5J+za9efg7/O+4P+s Z6WLYv6931kcb11Fwpc23Vz/Cg5EyCM+ilP/vG/Lwn+BX1K+dRvqP5Jv/aPwtqPkbGlhKT47QJsvM3Ea +l0fGq4jFx8w6L1xjqR/jU5vdvj/X+znL8QQ0Sj2Ok Wg+d9oE35Qg2j1Gu+8ZqG/zob0d/e60HV6/niSd88Sq6VGX/zazWdtAG4A8cwW+AX4XuvZyoh//vCvvV fVyvJrkQOxpD6bY/Hn5siducS+f9ZLE1cBXap7cga3v5x7sYPZnSK/eSDUJxZSM9kKC6e8ul6Cu+A73s i6tf9XLgl/Fx8mgIsaT+pfrni9tptu/qG2Ib0ieHc/ 6euWiF/MhNHntNb8B7Xv7Y+gT/DQ4FdkX++hfY6bY10n5+R/3ob+hX+Ttzs9A2rn9D6oFs+Ll82bOvgE l33gJhutnFJo0gXIcbwiD3qT+pqP/7T7btexm9U4dz7VskV/HBkjptt2R1s5+RNSnI0unke5+K8Rz2q+ QfoA/QJ+sO4Ks9S8A/im9Qy/002BDVk2/tp2N3v6jN 3zX/lOjsZ8nlHs0aYngme3HuVS/By4wJX7mxpq32WuEwr6DsrzoXp3r31yzhf1tvJFj8o3FI+gK9/FEs K/nkasi54iC/XV7/3+Gh3K12uI6o6/po+IW90MEJG5eC6JX75C0l+B31O+gL/Jgi1SiX3h+F/i70d6G/ C/2F/Rgd1VfH2YL/7U4hv0KfjMg+sbA/aVapt82ed0 KBQ3weAsnzkuX5x3WV/fglG0p69I6UpMZ14ensr33AF1d1fN3mhHHb0Pd+Sg9i90V/t4GO/m70F/rV2u jvxnjG+fbd6jz/bg30er+4mkKF9Hq/eh1NA0F/QZ+gK+g42Rbnbp67d7IpbSmmI/Sy1+22QS/3hn8z63 neL34gm4hbD+1e+/r2sq94k/4a2YC4mI8umdmVI/ar 3RV0A7+O5eZ42Gy7YllOaisZC4d4hJON5qCuvXihBxxNaDXJ/ux9Ish1+si24fr66u2a2Yvl0urzTgt9 qy0b/HX+eaf/u5hIAjkoP748u4aj5/B/tccAfYB/ti6LB3BokMoUz/4O9Hc4+JsavveCn2vUe0/InmXP 2MP3myepFD7t2BB7mq9wuU/Ricki++47A8sl06N/R3or /TwG+go7+8T7irlg8F6Uij2UT+kh11ec6Xlndh1Ec/uGG/2rg/uHF/loft worker+8Ea7wU569jw36w6o9RoJ0q [file] +nesXv+Ines/OQWU53CU8cmf+de2JI1O/nshihn8fNs +69IXj0zEcGlH5y9ty5Etsdu27AoZiS85iCN6u6LSx6PLOyz9USg69ujK+JRl/2JwEI1Rn/Dqr9WD1nW WogFPpjkws6dU+7GkxhOV2BVftW+a8d/SrF+74o19V+wAlGokJa2geIu3r1cXdvmUmr9Eg/NG1mbS83V xwCsBQUgKG0Ur8fbL/m/ehy0kJbC7N+ZdyFhT92kr4 +19qy1gDJs34az/7yAEavAS8237J3fD7zix7/sIs+1AXmxQ51UzU+9Us+1WF3/ji5123n5dToP226Gb5 eKJ9Cf6LIwpPMls3tso5lZVYJV1/eY9B7UsgJylUK2v/maGLqdwnSH5yTPd4xhoX+FE9mj2qfdQr94TF nq+ahm6hf8tjfNqnP9NgnFyNxK9h5Py0ew5FSLKB4s qtcrAhppLO9BJoL/G1yteq6Fp0Wudv3+fo+XmOnp/kPRTCuGuo5925906PKgS3rv22N753T2FsO0wJ02 gnbUoglDRgBUFoOLO78cy6quO/cGJ/eS7ZkDK7n8oPj0Z3H+2daG/mN5v23Def/jLX00wPbz1onkO+7X Bg4l4MmK/Z9ro5+/73Qv1mNEsifS9fXHsEAsj+X8/Ow3fr+S2NHiv8M/sD5Y0776huMmXC1NtsM/Et/6ger49mHN+P71leu/vT/8Q3+vJ7GL1Nu8H0/MM E/jUrD83ikG6Oz5Z0RsSKupe6D47rdGI7hXhcrr5bz+m/tdjlNZgU0j0ej0Z4WK5dj3SJRq1JtIA7ov3 w13EnFP0mIklB76prZ7rsqFfdxGpoAmXZ6w0gm39Vn /fcLT+fI7+v3Drz+fg/1ai6pbh5F8kL+D7BdwncQ8VgTkAM5P85dMpIZbBMj8R0dW7D+7KsetY6bfLlh uDFS/dD7k/WGnwfrci/mpO0fonWs/FgT0FtSV4Pb/NtF/zfA9H8Q/rZpk4AH4e5Ymm52v7r4+vfd1eS/ pNyjH8bkOC9Ku6C+blxjBq3ys70KipI+dt7bR7Vsj7 frav93/t6/MqlvrVmdsN+4OW+tXM+PM/JbrlvR30cQHN/lvH3m63NAQwctVZkFX42IvrdeGVp6KeFwqO Vz3aLdqqHkcN7/6ra3YmUdYb9t+JRd1Mat5xoSb2/6wAR9Z5w3tqf8mjVgl6l9HiwXn/NTP+vN+Z8QPx 5/3esHUaQ/z8R1p2Vcqyh17tPsTlyFuqI+HesDM5Hy 4h8DVVk1X8j1ev1524Rgei/FWlGUg/lk1K5Y99NFKD1J1l1/drZb/Y5MwrF4rFaFcje/Re8jHjcp+x2f YNK/uVZbifC/iEfY0ybm/K8TDx/c7e/5H1a5NDprpL+S3MXv+ec/htbfqS6lFU/tfeyPof/WpXOfGzf1 Z9/sq6nZR0g7216mZviY4YGM45+/GXKMM/+2p+Iz/9 6ox3N9cJZdyOyj9ay6sZuEiewi7p/1tdiZKaiOaITdppbp8yR/jX3i+/a6VedUvTAe5mt6/q6Fc3/tfe L+t2l13UduYZm4Lthd0Q22+G+S/1x29r8z0J064dPS3cc6+XsJsAlbICf9ukbv1vpRTLv/ee9fezmUl/ 7LEV/mJ2AKMo2kpb9wnxopgvJ94U+h5Ir2zsFq/ZP6 lf5TtK/axFA5lzP+N5ZHx+vxk+36aZ4R3M/eqGES+QV7Stgm+wT6D85ZOPv1vq8GadykKjCzsv79K3Sa MryDDOUy6L/Nobj9N1pa29nd1mlF/mB1z28rwZ9O6ZXj7T/arCo5+b+lWFJ+Uu1w9lrrYp6YbIJ0WKB3 xQzrma5ylN93uFjFF1SI64X/RXrfd7OW/ttsfaxny1 B+Lb/mypX6V+vhrxsW6wOouzJ1zqxmR2M11jcxR+93d3255ho+0blvrV+S/71/v7/oR7l35l43doe95c 458ivte/jvNXXvarDJ/81Lf34YQ/DPFtj/Wv7bGe+pVn/QsRyooWu37Zdm0unr89pu8/bpd17NePGhk3 GjlbChcQxy5NUht5ksOL1FBlju/dByNJmJrZken6W/ mK3mkOP+W2XOZYArz6p4S+D+oR2hicC2Ed93PmgabQsV5PLNv79+qzl3ifow/d36M65Cv3SbUD0/3e03 16ib5Q9m7KH7v2t4/TfnXDT4/29sHcD19zlEQ+aMH2MMxQsv/2XOXPsXx7d2lq75568+vDEG+Id8T39+ pbm11qJ/G9v++v90s54BiSE94/UdxPw08L6DxWq104 NTWJ4Ly1wF148vmAjd+jeMrzeObKI1te/FQmvD877I168g5T9tZcR+q5u/ljW5d4zpCug5AeckCaa8/Q sT/o0K8c+4NuPT+56nkZzPDq4c4S/mXuDu7wiskgr48yAokv5hrB+9FHmiCq81XpGvYXfGW9f92r2/N1 7gPpe3/TNa5vm0n0L0xgFIz5TU8a06fB1HyiC+J7Pe vO8W2iW+oUjgds33bklN89hr+Mxew4zJ08c5q5D35g/aZ+qz7qSdYn5Ec/C+D7UGrrtqIgP+Xg+0396o n1t0jtZ7yjAevcIqJI6tvvsuKfMcO3Tz8frTymglp34eQ2kn2xaB7YffnvTUEqyXR4tZ818Bfe+H6hX/ iCd4eyDg7iuP413eeKv16I1EU67/bw0tfwktumt735 9F7fC/GtP/sOxO+lv0sbEoj1qh0/oq6Gj8ldkT/8vw3Qigwf8OqcRydr4in1GmE3nFT20NsH4ZwaZlZf lLNQTiA+bD5iKz5aFQe+2ww2vpK4nYsld0o9/3pWjjnJyE4D6bfeg/uDFT+EiazOE0OjzlI32vxi9+uj PUQ5IImBwq97Fv5fUmpa2qbCq21v42ZquP+ivWm/qj US2NnhX+GEEuS2Gg9j5zV4KsnmeI/mk21E1Aay4/WoJu4yLERqKd9WZ2kweoB0z7Q/OcEsrwQ6jvclC0 02nH2gC1df41gQ+lZIaqMlkn1x/nCjjU8fjdgUjdjiLXkWrd4Dey1FaksDZjuczP8PFTK8sFfe03px8r wFTj7BBp4nw5DOaP+7Jv7UAbZ6p7lt/d+F/kY58t0F /218756+ZtvbV+pXnvG9/a0Y07Ew/Rq+00HndLWO5wX+qzH7McX+dcOI7/G8bcmuSauR2g2t80b+sQzj JhAmGgQ6x81W8sgo/+33W7zk8B86UnibgW+gA00e4fJ1Ko6gp/fr+M7kMK9pFantv59kRg1Jhl9inc7z wX61Ur/A0YH2scgZhaydcapv79Q9Y+vPa/K9iZ1g01 88f7Wz/LP+rfS/6p5jeelVh3cp6kl46zaX4Vr/sokrN45atlsE96uaNW051/znNeWivzomW06duf73jx 4s739vS7EOX9/DkwRb1FXsqJIxzAbX45DJ0n/YWanOiqCuG2sQf3Srw29+6UkL40bsd570+tUNG+KPPb iIYnrLlDsUqbS694A8fqyWdy0+pVX+7/4yPn732JaA 4E91Qtbbf4+FwSeHw7TGd6tjI0+3xrmi98If6uln0lmr8l9LFEmgRpt5p+3Xd9936EO7PK0ST0/KM7Tr 9Du94RaKrgoGgSxiH2+84R0rRvH+I77/x4Q3kOOP7oGhcN9IEe/gk3es0bIdOETtjT4d5bSbiOjKS+IX 9sgGK1aAtN+Ug/PO1jhnoyqzBcBYzSP99wsKI6iW0V 07biAG3zsF6cjgkVGa+mRAvwoJpA/Jh1F2vaMl45Tzu2xCePh7KXO797h1klAQ8nukQ8V0hqwgv5+O1K 6mMNP8rkT78Myd/h8K6mCjyT2yZPLgvsT8Gzy46hZQ+4Mx+l9r7YgOhF4YSFB4tQi2SpLJTZyUydFoY8 Hk+AsSjKgiD8sc2frf5O4vZG3rMLg4Z1rO/gpitL+C PD3cizelF295ebnH/eqGES+Iz/Ze774UbyeRWHT2+bmCfO402fvbR+US8Wx9G8/8Nv4GgeSd2elYtwaW 4jfi2/9ley9mzI1xS+L7PHDk+atsuynSK+GTh7Y2k3L6VfnjiDE2NnyVr2kdpE/n272szR+No1/VOLG+ nnRD15iIOd5Lo/35qO2h5U6SYz/7v+M2grE84sLejk 8b06KqoD9P3/uh4X1+I2C/Ctivwns/OcnO5rUjW+OqU4t5TQp11EsV+cJroE2fnXM13Eu6MoXqHx7HYs CvSK+IH0g/EN/2nFgTzzWUg/kK9quA/Lxmn5j1IQ8jIhP/EY/06gtO3LcAeTD+/XBArq5SWBYOwL4I7+ vyAni3OYQaaFq622HJU05MgI0YMQ7Fb/e2er4eWbCk 7vvOsT/EC+F8FyySC8OmJZkP869ubEP+GWJPpDfEG+Xd8HdlE9LbcLlvA/H4H+0+/7y/vg+7v27v/vp product marketing+ [file] CKQJpKBXuhHfAqt8D7EWRjuyKXVJUXOmJxYIWMUCMD LeByKQItGkC3DLQoQX2KmUAcXCK4SGhNGBVPLXxVIZgjEjHqa8S2NTUaZ4WcQDUxopDdGPSJJWqcQrpq KW3mbZngvokuQ6WhfLDvLXATLKDeGSQsSPGePAIyF1Zfp4N2L9VrDByKUTIRLRlESLblRkV4l59wgxAX ZXJpZXMpID4+VJ1wy6WfJg8UFKXyFT8lgpx2LV4FfS VfCQ8MZOyfddBuO8eugrFiRdUkZRITMS8jS7LguC03ZLS+QlQySC5ttqq0noLmIlLqKTAeVSXlLEJzWH krBYTfSZPyVDPfTCT1FKT9XPZzGvDjZYTcDFycGAEjUVPqQDFnerBEJVRqZZH6Ofl9HhPhLSWeLITrWP guHUMdPNb9JTPyYOLwNTZfOZ7hLyMvKPYgVVHtUSTp HhO7FmJkUkPZTYWbMLTmXCXoWsWeVGTeCNNmHYxuMUThFQFuYOz6JHFjSBRoUL9fMmEnBDWzGQZmBUZa UQKuYULyqlWOWFNvYTKvAWV3KLDcQNCuALWqJXbxYQQaHWVhELD6WOIoGAWmJS0uWdJaOLGcXLS8JrAh HIOcBBZhqxFYFBVqNXUyANP9WWNeUWZkSWVvPZadVN GfPDVhBzM2BDHuIJEgVH3gEbRtULKbMSJ7PZVbGVTiRBAoawKPRNZoAZZgQQt6ViIaXQGmCUQkNJrkQS GrPZWdSHxhZBYkVACgYW1xUrXzOAGvVIZiYFFoNHBgCNBeteCBEYVcJOIjRCQ1DjAnXLSmWQGoQBqzVW EyERShZKB0TQHfCLNvRT6nVoYiYYQkITx6EvZuWCMa XAOhdhERANVvJMDvFZLhHBVjEXDbGVOkEJimEEGeHCSpMrZ4XEMaFBCdPY3vLaKxGKGqTAQ2ZBErRBNi RKYabaBLMEBkAPQyAPLrHOA1BSZuLNUaRYj2uoXnrJFqVrp6Fs2TdXobAOR8Tb8XexIvLURwACMZCd0I m604EAYlYQVNGst+KzqelBIsfImqMMZRUFsgTcZJSSBBR0J= ID Date Data Source [id number] 02/18/2020 05:01:45 AM EDT [facility] Name Value Range Interpretation Code Description Data Trinidad rce(s) Supporting Document(s) EKG [facility] FWUIHz1qVjPYNbZmj2VrAwIdKITiHA0yvto3T4E4sMYwA5JjvRGby6pdF4MaP1IcBBYwLYBTQB2LlMUu jb2 [file] Manager Fleet+DroU73zeco4cqRRerxB5y0fTHRewtA/S07quDxc/mgee69EQb/00An5n96nEI45rguaE/PmUcVn3 [file] 51/nLsvZb/art installer//3X//g/43/+6z//71//+z//HPoPp+ u//ezyd6HxrW/lh7QZnbKwNl4qiwpx1q/4+OwPXL26WXNuL84xdVc2e/W2sRRmGqyWa2M8xe9Agsg6I/ 4w3Q2gd9EorzxCUba/v2gGe6a29vGrIUHauXZ6s/X5qcIYgD2tU+kXK/2TlCi47HQ7SjtzmQen8McrqD m/d7Uy/sZq1lRgB7KnM3+Z/vX3QO+T/xBggb2ql+li mX7pM+fxYZu4u95k83rGMi/4+ej/xYa/1AB1c71uulnmc935Jnrd+5F/yaZBOw2Sy/PU78mQw7/9pL/9 ldThiwk/uoD+9ldGpV/7KEv2bLn3Je4gl5AffThL3/IT3t10EKHQ6aA97YjC77VN+/ccOBaatd6AiuI5 cMIr4kEF/64OX/E8rnoSq7ruEm5886Jtjzp70bvmbQ 73q0k/85wnRsz0s6V+73dmgPPzfnNsaDxIv/XNir9p841i+ljFwyirM6JjG9WMcJ0kaVu970f0F39nyA +hNo0v1yu7ba4jkxU62c5rKxiH8VUulq6ixQrd92b3HooJeflIKzmsZk8hX+nUvsMdwD5r77Ov5PY1gK W3VLB6GX7FTaFJ5DJ6R82CZ8SquZjG3O4uSwV624oT dx7yaAw7s3DcD8/72N18qXFQQFcIFh0y+mz9+Hm/tK7np1R351rm7LZ+eOPi98d475o/43wHSBeXX5o7 0FsEYKzR8d1FkR2SpsazpTD0tK7W7otIQPZRdJ4X/shmp2r1Y8N8pYqY00fBPJBH2HN3e3GH67+DtH3f tk71S3x0b15e5280txdhy2/AzayChebg7l7zR+t5Y/ 5v1vXoO/5uR/2WnpPH0w5A83/3pRiR5UMKuRYFPOLc4+ieqRoS8II7ScmPQCBK5X79D06QzoT74U58OE 1A36D3/JXEV/vtzO89BHNy9tBlFH8NzAm3rfQ+Ql4hrx/ryoRKB7900pEArVMWwf1LLQW2uR3I+unv+Q 1yVwFIW86AiS6++klyxS5fR467lo23rN7qek8U4PG9 D6+eex+/vOZS8O95532A+Xi6bEB+Q/43A1Nfepb3cVbhF8HvY+aTeqcz1NM6Wr9wnheDy26vb0B+zgW6 fzj/RRD5nifhL/SN+tTpfQ8xZS+bo42O4ZEp9Ip4dOim/aZM/y+aJz474WcDMp714rB5G688wa/t37p0 LnPU+apbrjQ9q33m9Fz4hiN03K2d71L0pnHvdxXTLR vH+WRkqnKMlK6t5SkMu81kDZT8Nmc++kK5gn623Hvmwqgz28mO+7mj6gm3pcCO7UBgsZ6IBl5/f48k8V Wl9/nplV7x6D5juD/AV+fGxtX/Bs5qWuvswuyUwLI7Xzh3Kw7ko/Xy1HUgFEQV/Q7Bva6pTHEUtuCRhW YbVjGZ4A/Sd7ss8LgkX/JnPJ//Jva6iYX50Gh35TD1 iOlUhddc79eGq4/60FP+9Pemv//mzivb24Sb1E/6+d1BP/3vuNJrrWa2h36Y/C0bkjigvl6Ib3B6KPZY F9BnP3/Mfv7A+hz4/kb/O3ctwztrE2+Nkj//nklUutdNZhejvJ48jhM/08jjaV21uIHtVLuMZc0Opuou RlDsggoj74KOsJj4we5UPJcGkqT52Kg03Gp0534Sr2 Ov8l/+QDc4gbgr/+2v53O++Usq00mOw82ZQ3D/qC777dZs2pB8iWrYMNDg2qsMn/Rq932/mhbrF1+ppf PjwRt2Rjl/vl8/+z24OGYNp99EI/FvjK17COS9rb/dmiZ1ww308W7yy4ALiG7so8x85Xzm+A8J73Qd/s GGj69BJv2ZzFZ93B87pc/QF+j+GY87ph10LbHhj3Pk S2/Dr2MYqxs0Ip140KB58D0pBhDC5ZCcyFv5Fy60UHT55OOu7L5DsZ7D3nZ/+eyY7CWy4Z8QfiNzplPu Zs0125LHgWM2EosASf4/oL+C/r308qQyu/r6FJGR16l20xQw09oRXO/IB+i9Ps/PA9cvmM0Zpm3jvlMH Y4uWmZD2vdjPKNu2e56AOeFUcKpBarx76AFP+GpnGv FSfbTu7up1hXhfUn4OvEg25nPizubv25dech2yh0+n9v/E7GI2bZ3t/019UZB386xLbC/WxibguJR6Wn K93yiX4GJdojIE+KyHxu4742u5Jn4GgT9XAb9037p5Btr/7Vc3/piFnc8ZadXKjHpNLo/LDNATX+1Mv/ KZavBsnh28kSRBi2W05QvGdfE/UM9C/X9opXzB5msC HosiS6m31cDmqUWqCD/4vHg9m35Kx+eaQ+HNf0id7lLZB3yvLj5vQUT9W+dVoazpK2f8tug3GW74Mae4 2Q/O8SA4MwW16yZpw8NViy7d342HKi7Q0kx7wfucp2x6lVP87jrn6n/yO+X9vz/LfnXGuSvo+q6jr2UT Xknns8Tepzi37b8/FCAu8csg/j+m0e7B88r/ZSa+yn eR+JjVqd50ycg+8LGWFf2/NBNflYxAfoI+LFcWp8cILE94rv6qpV+1Oid7wd76xdB/EXj+QD39/3suLF mm9mxz0e1/rF4ifTIG5cA8eWY5EV9472cBGINO5yp7jxbXuARJ+124qsgf6UH4qItQ+Y169lf/uZtQ4+ dzSevt02p6Wl6NuOnM5PtsUa4ZAS/5KgCGtFB8Fruw fiSgZsR17Z72Y+gB+f20TH+BIHQoUydV9jd+paP/B3X0/7Jje8IdP2bzxlt8WunEEncIUbvR9z5l8m/Q 0jO4C44dZA122lMhSWm/607Os6mQosms6KnO0sqcoy+T8oAI662Lzxx5jhnFsKxpJC9O+m1DdhgiDx47 s7UKVrG9018prypqHEJq9KEwI60me+uJJr5K+dn/g5 z45iJZY0SF5Q9wN+WmGGeIqQcj5h7JrNXti/U80d/GNbjVyoSa4b+/mviqnqf/eiNs8V3//9Ga+CrLKv qrAnr//6pO0Pv/YeQ7ZtxE9I8p0u1rk+4PFN4+7vwK609kP7/1vyC9mX8OBa363+xzorV4Bbifzw96VU 3j8i00Ko46DdoM02yx8xEBo4R8O1fxqbWyqlL+tm+c hrIntH70D/IB+Y36d9e/0N+F/i70N+4QTPjV5V6YxoPulrfps2t/qnbxftN+MkpHl3flira+VWnQA/TA f7O3rn7/hn96V5L+lXPH2/7sxnT90Xv3ogp+R977C+gSgPyEsY431g2fir42A1u0y+c/Ya1veEi+4E66 W6fjw5/n+H/9W3ckStL0i/9paqeO963Kc9/QMz0+O6 1Gn9/D8D69jrzZ/oDdj5IsD3fZE6LiDbh/GNp4i1V2Lwy+nZK4DGp3/ia+te7JEQ2UcSpyGd//npP+dx 04+RukZzvVqbqWJ3LvXXx2/hpM+rFvZH+3QF5QT//va+NekTy1EMy2ki1N3bTv2Ozuldalcu/Tbd/Qjf 4mviqZtG+1Hga31hd0T1b22O2d9es4oDysJ6UuoHm0 ryr7t5fsqo3p58O/Pl2T2j52h2w432T7Cur68NXpUu67pm1dbH+y0f/75/B+/HHgA1x7AxiqPllkC+ps K4rH5br21d2L/o5nO9/4m5zn8rdY10D+hcxMv/dGXvqrz0p32zg+KJGbP91Oy64P7QJyDDed+rY9n/md v/2s59nON19C2d6l//Gc1a/ugR9ua4MtAf/9TdvmOa j/+xiedg++SrvoOab/+76eqFp4DKdbwwSz+62+F1nvyiNXs5mA6h/vd0U+w/t+/ayZ53h+1W4K2wfvst Ty7/m3ulvmnogp35O33pmS/S3yJLQ9/P+ec/k1T8+x/C/d1bvrNY/m6TmTX/P0HMn/XV11RCvKniJsiY dQv0F+Fx4SU7ow/+bpOYj/nWB17VA6ZA5v4puAQiru 0kQRs958WtP8D8tc/ia+ynmU+SjcR3ss+KsekG1I3fsnN/NX+/trwFemmL/juRoXh0DH/ia+lhcc6eRw WK8M/TX0N/DYH5fJS44prVmU/cpkq4zsb2kWv3mD+KuMBhSvG3tQcNeX0nyWsY5eaing0ELfjX7sqg4H 1wDYKfl81WDzof1ywi8S4az/7MyyO0LZ+7+2ev/XEl /umLU7K2A1J4h0/7vva3ob1cKoyfaio/6aw19rV4C7R4P53Vv6h0I+kdmP0n5f6j0wLZvlf3J0yyZErq bk0YwOcyqfiqH84xi+S1Gl9fqQ57i8eG1Rc28kUW9eh1yu7WgnPvajOQyevkU45M1j7SsJa/PLh601yA 6BO7107Z+VFchPyE/Ur5A//a71szALoMkxf050FanI /yV6QYFvPf7Fif9Hx85Lc1dmqgB3G5/pz+05Sns6AfZ06TZxvAd5G3x/RMe19g5Crczen60m5J/aQLcP 07nvu5bk+atK+7fvb3n+Bjtf0b27428/v4mLw4ms4tbbQl+82ynCoaedXZiEeKBQyqbItnceEzytyb6w bX5pUCKRezHzYJ/s62C2fvVo2igC+OqMq/H4AIy8ja 4gdhg25Bie1hPzyAtx+OoovD5n9zwDdwqxXzs1tuyti2jp9Tkd8JuBc3K+g/mYCygqnRlbFh5clEY08N oB+oZ82+kG9y4dmlMjhIyF2HhCakttbvp1NHs031C+/qfc2H67X0479+2SPi+9rX2fhtys2Z7EmAUBfg 6PHR2rv0qz+TxIgz6+8b/huA6CS7/WOd9+0xPys+fL 1Y922hbFJC2aAbkxC6zltYsmcacX5bm5zB3bwjr9ehDl5/BKu83rm593pqvHY+C8c0Fek2Avqfsvbmsb eL/a35QPaw7o3e/j6aF2xp9V/KJ2BlRBjmb35YQ+/1frBD6w8GticQ5p9niJTR5zCKu65pVEostfxYsi 6K+hv4b+moPuqD/wPJi/tvE8mL+r93/XekAfoA/Q5U G615OF/q4J+J9amhfk53te8LtgbhXDOHw5FS5tzpbwKe6WHe9dnC+yvPcXlj+gt/1qOdbntF/tHSBg9U Pyvb+pKK87gD/YH1y+QF+gO+r6Esr75+ivbzz/7vU/8ks74r1G7SxPao0jLEXP+40JOvobeL+B/oZB3k XcgTu4EG3F+d1S2hxmH9E5ZT/eb+4P5vjJ/fQtF8fh G0iV2emBx522rec7/lWa93LeoVKeU/0eA691548keK8cO//Xa/c9aPSrKpKtpnsqQjx+FWdNbi8B9f++ /QfuZF2iqxBoT761Q2rqH08xHwXTgjWK+5TKasa05kU0Ka/kw3v+lXtW8Tghw/kzQddv/92f7q8/9v2n +NPfI3/Wt/18940yg/q9secgENIZG22d5Dm+/u888V X2C/YrH/+hilTB9mQD4NI/j+Onh48IALrvZqd/uv2DQIpH+hy3V6I6ycetetfaSTbz7C/u8h7LGwT8Sd 3DM7Mq8lCTCy2y4gAyX/5p00b1CqV6/QjWf5c1B9+DH6g/wN/I3/3Gqd9a1nDA6735xAo9b3ml08YpKh 9rk42fHlsU/HI0JrKm5dRVhqU/89qvXn3xL/qr7e/t jD644kR3Da44D5sT07e76Ad8mtkoP4xt4YC+4LH/+STe9ae533d4dAgRj8xo/jkPj7ic9SsF+2i3h0Bh 38iyP/tk/nOdy+V/SnHmP/bJm/7xLes/4cfl46s/Sl9NP/jYwUAuPa9cb3qka12f51gdK2gw3Qon2Sd/ +7FfzVy/x341q+zv/c6dZX/v13LtH/uV5dge+9U6+o 8f+9Wq/L/89347J1/FbXu3f3fgXsaqqFI7bN+l/d+P/Pyayw0id7Ys38u79ckXK5dr6vr/znE+6Nb+dW 6ALqQcwtft45Qm81WU7iUk3H/nhvWb+sOrNIB0e4/OqdzH1q7E5oO/Mpxv2rzMqU3gT6rU9lsTt4rS/3 ZfA/y+v+Cr/XN8ob/LwO/8Xd4op2FQ0k3s7U01K/hY v2uj/X2+6285znvlim8he6oan1b80tbYH+KE5Bf5qA/Hve/bjQx5xP+5o7+O/Rn6lUO/dgeV4bw55n39 +v/Xo+9bebT+7CHgK/L3/TKP/v/1GOD3/2YK36cs9v/XTPc+kezBO6Mho0aw/Barbara/jR3/S6U7wnGo9V 5rc+7w+bNhF2R3MJIs3r6eLodk5pS6w1trF1+RP67v spvtt/0tN+eu9b212wQ/xN2sYaD+Kaia/uCrdYbW2R8P6elRLp+d47n0a/yjrbvvt/tR7/CeNr7rnx+vN 1rT60pz65dz0TgBi5Zq79GI4QrWgxUA+XjQbxVcx2tnc147mkv0eNF9WieNxCx8LN4jzHo8Rz/49tv3O LL++ynj/I1X/r+ipl78XbgSxj5k7N2i4i0PGma2dSo hyzcveP3D6a1YdJ+zSW71Pyw2uQUVAtdJVkiSmC5h3cKtG1vZXwJ3v1JnW6I5h4aiHh/v4A7pdOdaUwO 8D3AGNt4cEQ304Cpu3qr1/mP9Uqa5iqiROfAmVLOi6h/RG78tkZRpc2neV+Mvi9qiL3miqfpkIpql2f5 2q9u+u0zMdq+EUPAV/AV/SA2Gfij0S03O5SvkVid68 tsI5Fc9ZfvIBl6fE/v/0bqVzmGab/KZ80P/LY/xxTw+43t3z2Abo6wWrseuNqyh00mHrkS6DluQ+C3vS 7EsuV0MF9C/kb+vrgQ0g1egY33Ps/P9yPjM+Q8z/gDUb9hZoX3GiXPM2GY3/96OXV7DXfN/aB1UhuCih R1jmXD7m/w+38icE2zt/WBLx/C6EuBf5A3VKB5Ru8Z p3Xv2Mf8rE+Nhfe7+vsbC+56dC832cik5x1oYTxea1O3UKB24dQC/b5JUq24q8r7a1ps+1X6t+fa8b6/ S7oDLU181fHxInWR7aH/WoiOfRxWZmsp6C5Ruc8OK44/NNL/qtIdfyPS/9yRWf2A7/bniAF+61cR2K/g fxWpXxW/7bER2K/Ckb/d51docgbyr3CNT3odG/Wrr9 Florentin/+44P1NmG5/wgph67y8lK/An+BP1G/iG/OjvXuA7+J68PlyBpmF1y3/31/b2/X3gC/uRakGk4E/wB/ [file] a7XMtHq3ON1YN0wqcm1OpjY2ALxdVV376I411b674X sJOCInqCOfsjzW3N2WJ3UDHCjQNr4H+A6KKeCaUWjpIl4dzZpKtBtcN05P3GlMG5YPaeBC5BlWAWHRDG 9YU9SZFGyIYQ7IGgczOGevAspOEs81QCWdPH9djam6kokGhkoACIx7RWEoa7Bkl47DFVKhO/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 [file] ID Date Data Source [id number] 02/17/2020 10:27:36 PM EDT [facility] NT INFORMATIONPatient MRN Name Date of Age Gend*PT [id number] Jaz Mckeon 1955 64 years F IPPT Location Admission Date/Time Visit ID Attending [id number] 02/17/20 1730 --- Balwinder Oliveros MD([id number]) EPI ID CSN Admitting Provider [id number] Balwinder Oliveros MD([id number])Inpatient History & PhysicalEileen Jessica MckeonMRN: [id number] and Plan:Principal Problem: Other chest painActive Problems: Coronary artery disease involving [place] coronary artery Essential hypertension Dyslipidemia History of coronary angioplasty with insertion of stent1. Chest pain, abnormal EKG with a sinus pause. Patient complaining ofshortness of breath on exertion. Risk factors are family history, dyslipidemiaand hypertension. EKG at [facility] showed ventricular rate of 62, witha sinus pause. Troponins were unremarkable. Will get a stress test in themorning. EKG stat. Patient denies any chest pain at this time. Cardiologyconsultation in the a.m.2. Hx CAD s/p stent in 2001. Continue with aspirin and statin3. Hypertension. Continue with blood pressure medications4. Dyslipidemia. Continue with statinDVT prophylaxis Lovenox subcuCODE STATUS full codeHistory of Present Illness: 64-year-old female past medical history of CADstatus post stent placement in 2001, dyslipidemia, [facility] with complaints of shortness of breath of exertion.Patient has been noticing having shortness of breath on exertion for the pastcouple weeks. Denies any chest pain, orthopnea or PND. However, she alsomentioned feeling some occasional palpitations with dizziness most commonly inthe morning. Patient had a history of CAD with stents placement in the past.She is taking aspirin. In addition, she also noticed that some of her shortnessof breath is improves with nitroglycerin. Patient has family history ofpremature cardiovascular disease in her father. Denies any alcohol, smoking ordrug use.Past Medical History:Past Medical History:Diagnosis Date Coronary artery disease HypertensionPast Surgical History:History reviewed. No pertinent surgical history.Medications:No medications prior to admission.Allergies:Patient has no known drug allergies.Family History: Positive for cardiovascular disease in the fatherFamily HistoryProblem Relation Age of Onset Heart disease FatherSocial History:Social HistorySocioeconomic History Marital status: Spouse name: Not on file Number of children: Not on file Years of education: Not on file Highest education level: Not on fileOccupational History Not on fileSocial Needs Financial resource strain: Not on file Food insecurity: Worry: Not on file Inability: Not on file Transportation needs: Medical: Not on file Non-medical: Not on fileTobacco Use Smoking status: Never Smoker Smokeless tobacco: Never UsedSubstance and Sexual Activity Alcohol use: Never Frequency: Never Drug use: Never Sexual activity: Not on fileLifestyle Physical activity: Days per week: Not on file Minutes per session: Not on file Stress: Not on fileRelationships Social connections: Talks on phone: Not on file Gets together: Not on file Attends buddhist service: Not on file Active member of club or organization: Not on file Attends meetings of clubs or organizations: Not on file R elationship status: Not on file Intimate partner violence: Fear of current or ex partner: Not on file Emotionally abused: Not on file Physically abused: Not on file Forced sexual activity: Not on fileOther Topics Concern Not on fileSocial History Narrative Not on fileReview of SystemsConstitutional: Negative for chills, fatigue and fever.HENT: Negative for congestion, sore throat and tinnitus.Eyes: Negative for photophobia and visual disturbance.Respiratory: Positive for shortness of breath. Negative for cough, chesttightness and wheezing.Cardiovascular: Negative for chest pain, palpitations and leg swelling.Gastrointestinal: Negative for abdominal pain, diarrhea, nausea and vomiting.Endocrine: Negative for polydipsia and polyphagia.Genitourinary: Negative for dysuria, flank pain and urgency.Musculoskeletal: Negative for back pain, joint swelling and neck pain.Skin: Negative for color change and rash.Allergic/Immunologic: Negative for food allergies.Neurological: Negative for dizziness, weakness, light-headedness, numbness andheadaches.Hematological: Does not bruise/bleed easily.Psychiatric/Behavioral: Negative for agitation and confusion.Temp: [98.6 F-98.7 F] 98.6 FHeart Rate: [69-73] 69Resp: [20] 20BP: (155-192)/(79-101) 185/79Constitutional: Not in acute distressHEENT: Head: Normocephalic and atraumatic. Eyes: Pupils are equal, round, andreactive to light, EOMI. No scleral icterus/pallor.Neck: Normal range of motion. Neck supple. No tracheal deviation present. No LADCardiovascular: RRR, S1/S2 normal, no murmur, gallops or rubs.Pulmonary/Chest: Normo vesicular breath sounds. No stridor. No respiratorydistress. There are no wheezes, rales or rhonchi.Abdominal: Bowel sounds are normal. She exhibits no distension and no mass.There is no tenderness . There is no rebound and no guarding.Musculoskeletal: Normal range of motion.Extremities: No cyanosis, clubbing or edema. 2+ pulses present in allextremities.Neurological: Grossly intactSkin: Skin is warm, no rash or jaundiceDiagnostic ReviewSignature: Balwinder Oliveros MDDate: February 17, 2020Time: 10:24 PM Name Value Range Interpretation Code Description Data Trinidad rce(s) Supporting Document(s) ID Date Data Source [id number] 02/17/2020 10:02:00 PM EDT [facility] [place] [facility] Name Value Range Interpretation Code Description Data Trinidad rce(s) Supporting Document(s) APTT 25.0 s (22.0-34.3) [facility] [place] [facility] Y ID Date Data Source [id number] 02/17/2020 10:02:00 PM EDT [facility] [place] [facility] Name Value Range Interpretation Code Description Data Trinidad rce(s) Supporting Document(s) PT 10.5 s (9.2-11.9) [facility] [place] [facility] GREGORY INR 1.00 [facility] [place] [facility] SUGGESTED THERAPEUTIC RANGES USING INR F ORSTABILIZED ANTICOAGULATED PATIENTS:STANDARD DOSE THERAPY INR 2.0-3.0 DVT, PE, PREVENT DVT OR EMBOLISMHIGH DOSE THERAPY INR 2.5-3.5 PREVENT EMBOLISM FROM MECHANICAL HEART VALVE ID Date Data Source [id number] 02/07/2020 08:06:00 AM EDT [facility] Name Value Range Interpretation Code Description Data Trinidad rce(s) Supporting Document(s) Insulin 16.2 uIU/mL 2.6-24.9 [facility] ID Date Data Source [id number] 02/07/2020 08:06:00 AM EDT [facility] Name Value Range Interpretation Code Description Data Trinidad rce(s) Supporting Document(s) Please note [facility] The date recorded on the requisition ind icates the sample(s) receivedwere greater than 72 hours old upon arrival in our laboratory. ID Date Data Source Dexa, Full Body 01/21/2020 12:56:50 PM EDT eCW1 ([facility]) Name Value Range Interpretation Code Description Data Trinidad rce(s) Supporting Document(s) Dexa, Full Body eCW1 ([facility]) ID Date Data Source PLZ Digital Mammo Screening Bilat 01/21/2020 12:56:43 PM EDT eCW1 ([facility]) Name Value Range Interpretation Code Description Data Trinidad rce(s) Supporting Document(s) PLZ Digital Mammo Screening Bi lat eCW1 ([facility]) ID Date Data Source [id number] 12/24/2019 12:00:00 AM EDT [facility] Jennifer DONIS Patient Name: JAZ MCKE[address] [place] [address] Date of : [birth year][address] [place] [id number] Date of Exam: 12/24/2019#: Fax: [phone] EXAM: MRI CERVICAL SPINE WITHOUT CONTRASTPROCEDURE INFORMATION:Exam: MR Cervical Spine Without ContrastExam date and time: 12/24/2019 1:16 PM Age: 64 years oldClinical indication: Cervicalgia; Patient HX: Left sided neck pain and leftshoulder painTECHNIQUE: Imaging protocol: Multiplanar magnetic resonance images of thecervical spine without contrast.COMPARISON: No relevant prior studies available.FINDINGS:Vertebrae: There is 2 mm of grade 1 anterolisthesis of C4 with respect toC5. There is 2 mm of grade 1 retrolisthesis of C5 with respect to C6.Normal vertebral body alignment is otherwise preserved. Vertebral bodyheights are within normal limits.Spinal cord: The cervicomedullary junction and cervical cord appear normalC2-C3: No significant disc disease. No significant spinal stenosis.C3-C4: There is a shallow disc osteophyte complex. There is mild facethypertrophy. The spinal canal and neural foramina are patent.C4-C5: There is a diffuse disc osteophyte complex/uncovering related tolisthesis. There is mild right and moderate left facet hypertrophy. Thereis severe right and moderate to severe left neural foraminal narrowing.C5-C6: There is a diffuse disc osteophyte complex/uncovering related tolisthesis. There is mild facet hypertrophy. There is severe right andmoderate left neural foraminal narrowing. There is mild canal stenosis.C6-C7: There is a diffuse disc osteophyte complex. There is mild facethypertrophy. There is moderate to severe right and mild left neuralforaminal narrowing. There is mild canal stenosis. C7- T1: No significantdisc disease. No significant spinal stenosis. Vertebral arteries: Expectedflow voids in the vertebral arteries.Soft tissues: Unremarkable.IMPRESSION:Degenerative disc disease and spondylosis. At C4/5, changes contribute tosevere right and moderate to severe left neural foraminal narrowing. AtC5/6, changes contribute to severe right and moderate left neural foraminalnarrowing.Thank you for allowing us to participate in the care of your patient.Dictated and Authenticated by: Monae Mena MD 12/30/2019 7:40 AMEastern Time ([place] & [place])VradV/Mayik you for referring JAZ MCKEON to our office. Electronically Signed - [facility] 12/30/19 9:02 Name Value Range Interpretation Code Description Data Trinidad rce(s) Supporting Document(s) ID Date Data Source [id number] 08/31/2019 08:22:00 AM EST [facility] ([facility]) Name Value Range Interpretation Code Description Data Trinidad rce(s) Supporting Document(s) Thyrotropin [Units/volume] in Serum or Plasma 1.030 [facility] ([facility]) ID Date Data Source [id number] 08/31/2019 08:22:00 AM EST [facility] ([facility]) Name Value Range Interpretation Code Description Data Trinidad rce(s) Supporting Document(s) Triglycerides 108 [facility] ([facility]) Cholesterol 159 [facility] ([facility]) HDL 67 [facility] Chol/HDL Ratio 2.373 [facility] ([facility] Cholesterol in LDL [Mass/volume] in Serum or Plasma by calculation 70 [facility] ([facility]) ID Date Data Source [id number] 08/31/2019 08:22:00 AM EST [facility] ([facility]) Name Value Range Interpretation Code Description Data Trinidad rce(s) Supporting Document(s) Calcium [Mass/volume] in Serum or Plasma 9.4 [facility] ([facility]) Albumin [Mass/volume] in Serum or Plasma 4.4 [facility] ([facility]) Alanine aminotransferase [Enzymatic activity/volume] in Serum or Pl asma 37 [facility] ([facility]) Carbon dioxide, total [Moles/volume] in Serum or Plasma 29 [facility] ([facility]) Chloride [Moles/volume] in Serum or Plasma 110 [facility] ([facility]) Potassium [Moles/volume] in Serum or Plasma 4.4 [facility] ([facility]) Alkaline phosphatase [Enzymatic activity/volume] in Serum or Plasma 8 1 [facility] ([facility]) Sodium 143 [facility] ([facility] Protein [Mass/volume] in Serum or Plasma 7.3 [facility] ([facility]) Aspartate aminotransferase [Enzymatic activity/volume] in Serum or Plasma 20 [facility] ([facility]) Creatinine For GFR 0.66 [facility] ([facility]) Urea nitrogen [Mass/volume] in Serum or Plasma 25 MEDENT ([facility]) Glucose 95 70-100 MED[facility] ([facility]) ID Date Data Source [id number] 08/31/2019 08:22:00 AM EST MEDENT ([facility]) Name Value Range Interpretation Code Description Data Trinidad rce(s) Supporting Document(s) White Blood Count 5.3 4.0-10.0 MEDENT ([facility]) Platelets 188 150-450 MED[facility] ([facility]) Red Blood Count 4.48 4.00-5.40 MED[facility] ([facility]) Hemoglobin 13.1 MEDENT ([facility]) Hematocrit 41.0 MEDENT ([facility]) ID Date Data Source LIPID PANEL (CARDIAC RISK) 08/31/2019 12:00:00 AM EST eCW1 ( [facility]) Name Value Range Interpretation Code Description Data Trinidad rce(s) Supporting Document(s) Cholesterol [Moles/volume] in Serum or Plasma 159 <200 CHOLESTEROL LEVEL eCW1 ([facility]) Cholesterol in LDL [Mass/volume] in Serum or Plasma by calculation 70 <100 LDL CHOLESTEROL eCW1 ([facility]) Triglyceride [Mass/volume] in Serum or Plasma by calculation 108 <150 TRIGLYCERIDES LEVEL eCW1 ([facility]) Cholesterol in HDL [Moles/volume] in Serum or Plasma 67 >40 HDL CHOLESTEROL eCW1 ([facility]) 2.373 <5 CHOLESTEROL RISK RATIO eCW1 ([facility] access hospital) 92 NON-HDL-C eCW1 ([facility]) ID Date Data Source SERUM PROTEIN ELECTROPHORESIS 08/31/2019 12:00:00 AM EST eCW 1 ([facility]) Name Value Range Interpretation Code Description Data Trinidad rce(s) Supporting Document(s) 7.3 6.4-8.2 TOTAL PROTEIN eCW1 ([facility]) ID Date Data Source FREE T4 & TSH PANEL 08/31/2019 12:00:00 AM EST eCW1 ([facility]) Name Value Range Interpretation Code Description Data Trinidad rce(s) Supporting Document(s) 1.01 0.76-1.46 FREE T4 eCW1 ([facility]) 1.030 0.358-3.740 THYROID STIMULATING HORM ONE eCW1 ([facility]) ID Date Data Source C REACTIVE PROTEIN QUANTITATIV (At [facility]) 08/31/2019 12:00 :00 AM EST eCW1 ([facility]) Name Value Range Interpretation Code Description Data Trinidad rce(s) Supporting Document(s) < 0.30 0.00-0.30 C REACTIVE PROTEIN QUANTI TATIV eCW1 ([facility]) Procedure Social History Code Duration Value Status Description Data Source(s ) Smoking 08/08/2020 12:00:00 AM EST Patient has never smoked co mpleted Patient has never smoked MEDENT ([facility]) Alcohol intake 02/17/2020 12:00:00 AM EDT Never completed [facility] Smoking 02/17/2020 12:00:00 AM EDT Never smoker completed Never s moker [facility] Smoking 11/16/2019 12:00:00 AM EDT Patient has never smoked co mpleted Patient has never smoked MEDENT ([facility]) Smoking 08/31/2019 12:00:00 AM EST Never Smoker completed Never S moker eCW1 ([facility]) Smoking 08/31/2019 12:00:00 AM EST Never Smoker completed Never S moker eCW1 ([facility]) Smoking 08/31/2019 12:00:00 AM EST Never Smoker completed Never S moker eCW1 ([facility]) Smoking 08/31/2019 12:00:00 AM EST Never Smoker completed Never S lindy eCW1 ([facility]) Vital Signs ID Date Data Source UNK Name Value Range Interpretation Code Description Data Source(s) Diastolic blood pressure 70 mm[Hg] 70 mm[Hg] MEDENT ([facility]) sitting, regular cuff Systolic blood pressure 128 mm[Hg] 128 mm[Hg] M EDENT ([facility]) sitting, regular cuff Respiratory rate 16 /min 16 /min MEDENT ( [facility]) Heart rate 60 /min 60 /min [facility] ([facility]) Regular Body mass index (BMI) [Ratio] 28.0 kg/m2 28.0 k g/m2 MEDENT ([facility]) Body height 64 [in_i] 64 [in_i] MEDENT ([facility]) 5'4" Body weight 163.00 [lb_av] 163.00 [lb_av] MEDEN T ([facility]) Body mass index (BMI) [Ratio] 28.2 kg/m2 28.2 k g/m2 MEDENT ([facility] ) Body weight 159.00 [lb_av] 159.00 [lb_av] MEDEN T ([facility]) Body height 63 [in_i] 63 [in_i] MEDENT ([facility]) 5'3" Body temperature 96.5 [degF] 96.5 [degF] MEDENT ([facility]) Diastolic blood pressure--standing 60 mm[Hg] 6 0 mm[Hg] MEDENT ([facility]) sitting Systolic blood pressure--standing 126 mm[Hg] 12 6 mm[Hg] MEDENT ([facility]) sitting Diastolic blood pressure 64 mm[Hg] 64 mm[Hg] MEDENT ([facility]) sitting, regular cuff Systolic blood pressure 126 mm[Hg] 126 mm[Hg] M EDENT ([facility]) sitting, regular cuff Respiratory rate 16 /min 16 /min MEDENT ( [facility]) Heart rate 68 /min 68 /min MED[facility] ([facility]) Regular Body mass index (BMI) [Ratio] 27.3 kg/m2 27.3 k g/m2 MEDENT ([facility]) Body height 64 [in_i] 64 [in_i] MEDENT ([facility]) 5'4" Body weight 159.00 [lb_av] 159.00 [lb_av] MEDEN T ([facility]) Body temperature 96.7 [degF] 96.7 [degF] MEDENT ([facility] ) Heart rate 85 /min 85 /min [facility] Diastolic blood pressure 80 mm[Hg] 80 mm[Hg] [facility] Systolic blood pressure 138 mm[Hg] 138 mm[Hg] [facility] Oxygen saturation in Arterial blood by Pulse oximetry 97 % 97 % [facility] Respiratory rate 18 /min 18 /min [facility] Body temperature 36.78 Maru 36.78 Maru [facility] Body mass index (BMI) [Ratio] 27.46 kg/m2 27.46 kg/m2 [facility] Body weight 72.576 kg 72.576 kg [facility] Body height 162.6 cm 162.6 cm [facility] Body mass index (BMI) [Ratio] 28.3 kg/m2 28.3 k g/m2 MEDENT ([facility] ) Body weight 165.00 [lb_av] 165.00 [lb_av] MEDEN T ([facility]) Body height 64 [in_i] 64 [in_i] MEDENT ([facility]) 5'4" Body temperature 98.4 [degF] 98.4 [degF] MEDENT ([facility] ) Body mass index (BMI) [Ratio] 28.8 kg/m2 28.8 k g/m2 MEDENT ([facility], [facility]) Body height 63.5 [in_i] 63.5 [in_i] MEDENT ([facility], [facility]) 5'3.50" Body weight 165.00 [lb_av] 165.00 [lb_av] MEDEN T ([facility], [facility]) Body temperature 98.8 [degF] 98.8 [degF] MEDENT ([facility], [facility]) Oxygen saturation in Arterial blood by Pulse oximetry 95 % 95 % MEDENT ([facility], [facility]) Respiratory rate 18 /min 18 /min MEDENT ( [facility]) Heart rate 72 /min 72 /min MEDENT ([facility], [facility]) Diastolic blood pressure 93 mm[Hg] 93 mm[Hg] MEDENT ([facility], [facility]) Systolic blood pressure 161 mm[Hg] 161 mm[Hg] M EDENT ([facility], [facility]) Diastolic blood pressure 80 mm[Hg] 80 mm[Hg] MEDENT ([facility]) sitting Systolic blood pressure 134 mm[Hg] 134 mm[Hg] M EDENT ([facility]) sitting Diastolic blood pressure 80 mm[Hg] 80 mm[Hg] MEDENT ([facility]) sitting, regular cuff Systolic blood pressure 130 mm[Hg] 130 mm[Hg] M EDENT ([facility]) sitting, regular cuff Respiratory rate 16 /min 16 /min MEDENT ( [facility]) Heart rate 68 /min 68 /min [facility] ([facility]) Regular Body mass index (BMI) [Ratio] 28.3 kg/m2 28.3 k g/m2 MEDENT ([facility]) Body height 64 [in_i] 64 [in_i] MEDENT ([facility]) 5'4" Body weight 165.00 [lb_av] 165.00 [lb_av] MEDEN T ([facility]) Diastolic blood pressure 80 mm[Hg] 80 mm[Hg] eCW1 ([facility]) Systolic blood pressure 124 mm[Hg] 124 mm[Hg] e CW1 ([facility]) Body temperature 97.8 [degF] 97.8 [degF] eCW1 ( [facility]) Respiratory rate 18 /min 18 /min eCW1 ([facility]) Heart rate 92 /min 92 /min eCW1 ([facility]) Body mass index (BMI) [Ratio] 28.42 kg/m2 28.42 kg/m2 eCW1 ([facility]) Body height 63.5 [in_us] 63.5 [in_us] eCW1 ([facility]) Body weight Measured 163 [lb_av] 163 [lb_av] eC W1 ([facility]) Body mass index (BMI) [Ratio] 27.5 kg/m2 27.5 k g/m2 MEDENT ([facility] Heart rate 74 /min 74 /min MEDENT ([facility] Diastolic blood pressure 92 mm[Hg] 92 mm[Hg] MEDENT ([facility] Systolic blood pressure 168 mm[Hg] 168 mm[Hg] M EDENT ([facility] Body weight 160.00 [lb_av] 160.00 [lb_av] MEDEN T ([facility] Body height 64 [in_i] 64 [in_i] MEDENT ([facility] 5'4" Patient Treatment Plan of Care Planned Activity Planned Date Details Description Data Source (s) telmisartan 80 MG Oral Tablet 03/31/2020 12:00:00 AM EDT eCW1 ([facility]) telmisartan 80 MG Oral Tablet 03/31/2020 12:00:00 AM EDT eCW1 ([facility]) telmisartan 80 MG Oral Tablet 03/31/2020 12:00:00 AM EDT eCW1 ([facility]) Amlodipine 10 MG Oral Tablet 02/18/2020 12:00:00 AM EDT [facility] Prolite Ankle Stirrup Brace - 08/31/2019 12:00:00 AM EST eCW1 ([facility]) Prolite Ankle Stirrup Brace - 08/31/2019 12:00:00 AM EST eCW1 ([facility]) Prolite Ankle Stirrup Brace - 08/31/2019 12:00:00 AM EST eCW1 ([facility]) Prolite Ankle Stirrup Brace - 08/31/2019 12:00:00 AM EST eCW1 ([facility]) Prolite Ankle Stirrup Brace - 08/31/2019 12:00:00 AM EST eCW1 ([facility]) Prolite Ankle Stirrup Brace - 08/31/2019 12:00:00 AM EST eCW1 ([facility])
[2020-08-11] MEDS ORDERED: MIDAZOLAM INJ 2MG/2ML VIAL (J2250 PER 1MG) As Ordered ONE (12:24)
[2020-08-11] MEDS ORDERED: fentaNYL 100 MCG/2 ML INJECTION (J3010) As Ordered ONE (12:25)
[2020-08-11] MEDS ORDERED: propofoL 500 MG/50 ML VIAL As Ordered ONE (12:25)
[2020-08-11] MEDS ORDERED: LIDOCAINE 2% 100MG/5ML SDV (FOR ANES.) As Ordered ONE (12:26)
[2020-08-11] MEDS ORDERED: ACETAMINOPHEN TAB 650MG DOSE (2X325MG) PO PRN (15:00)
[2020-08-11] MEDS ORDERED: ONDANSETRON 4MG/2ML VIAL IV PRN (15:00)
--- NOTE | 2020-08-11 15:21 | REP ---
INDICATION: PACEMAKER IMPLANT. COMPARISON: February 17, 2020.. TECHNIQUE: Upright AP portable radiograph. FINDINGS: A dual lead pacemaker is seen in the right heart view of the left side. Skin igor are noted adjacent to the power plant. Monitoring electrodes are seen. There is no evidence of pneumothorax or hydrothorax. Mild cardiomegaly is observed. The aorta is tortuous. Pulmonary vasculature is slightly cephalized. No bony abnormality. IMPRESSION: Mild cardiomegaly. Pacemaker in place. No evidence of pneumothorax. <Electronically signed by Riccardo Garcia > 08/11/20 [id number]
[2020-08-11 15:45] VITALS: BP 148/78
[2020-08-11] MEDS ORDERED: SLF 3 ML SYR IV PRN (16:30)
[2020-08-11 16:34] VITALS: BP 136/84
[2020-08-11 17:13] VITALS: BP 142/74
[2020-08-11] MEDS: traMADol 50 MG TAB PO PRN (17:41)
[2020-08-11 18:20] VITALS: BP 137/65
[2020-08-11] MEDS: ceFAZolin SOD 1 GM in D5W MINI-BAG PLUS 50 ML IV SCH (20:52)
[2020-08-11] MEDS: SLF 3 ML SYR IV SCH (20:53)
[2020-08-11] MEDS: GABAPENTIN 100 MG CAP PO SCH (20:53)
[2020-08-11] MEDS: DOCUSATE SODIUM 100MG CAPSULE PO SCH (20:53)
[2020-08-11] MEDS ORDERED: FAMOTIDINE 20 MG TAB PO SCH (21:00)
[2020-08-11] MEDS ORDERED: ROSUVASTATIN 10 MG TAB (CRESTOR) PO SCH (21:00)
[2020-08-12 00:03] VITALS: BP 143/70
[2020-08-12] MEDS: TELMISARTAN 20 MG TAB PO SCH ×2 (00:07→08:41)
[2020-08-12] MEDS: traMADol 50 MG TAB PO PRN ×2 (00:07→07:41)
[2020-08-12 05:09] VITALS: BP 110/55
[2020-08-12] MEDS: ceFAZolin SOD 1 GM in D5W MINI-BAG PLUS 50 ML IV SCH ×2 (05:09→12:39)
[2020-08-12] MEDS: SLF 3 ML SYR IV SCH (05:10)
[2020-08-12 05:36] LABS: HEMATOCRIT 35.6 % (36.0-47.0); MEAN CORPUSCULAR HEMOGLOBIN 28.9 pg (27.0-33.0); MEAN CORPUSCULAR HGB CONC 30.9 g/dl (32.0-36.5); MEAN CORPUSCULAR VOLUME 93.4 fl (80.0-96.0); PLATELET COUNT, AUTOMATED 158 10^3/uL (150-450); RED BLOOD COUNT 3.81 10^6/uL (4.00-5.40); WHITE BLOOD COUNT 6.5 10^3/uL (4.0-10.0)
[2020-08-12 05:56] LABS: BLOOD UREA NITROGEN 21 MG/DL (7-18); CALCIUM LEVEL 9.1 MG/DL (8.8-10.2); CARBON DIOXIDE LEVEL 30 MEQ/L (21-32); CHLORIDE LEVEL 105 MEQ/L (98-107); CREATININE FOR GFR 0.94 MG/DL (0.55-1.30); GLOMERULAR FILTRATION RATE > 60.0 (>45); GLUCOSE, FASTING 93 MG/DL (70-100); MAGNESIUM LEVEL 2.1 MG/DL (1.8-2.4); POTASSIUM SERUM 4.5 MEQ/L (3.5-5.1); SODIUM LEVEL 140 MEQ/L (136-145)
[2020-08-12 07:20] VITALS: BP 110/60
--- NOTE | 2020-08-12 07:51 | RO ---
OPERATIVE NOTE DATE OF OPERATION: 08/11/2020 PREOPERATIVE DIAGNOSIS: Sinus node dysfunction with symptomatic marked diurnal bradycardia in the 30s. POSTOPERATIVE DIAGNOSIS: Sinus node dysfunction with symptomatic marked diurnal bradycardia in the 30s. PROCEDURE: Implantation of permanent dual chamber pacemaker. IMPLANTING ASSISTANT GM OF CONTENT & DELIVERY: Sony Maxwell MD FURNACE KEEPER: ANESTHESIOLOGIST: Dr. Crisostomo ANESTHESIA: Monitored local anesthesia. 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 She has been followed regularly and reports gradually worsening sense of fatigue. Holter monitor July 22, 2020 showed worsening sinus node dysfunction with repeated marked sinus arrest and junctional escape rhythm with rates in the 30s during wakeful hours. In light of these marked bradyarrhythmias and her worsening fatigue and complicated cardiac issues, we recommended implantation of a permanent dual chamber pacemaker to prevent possible fall or injury. At this point her symptoms of fatigue and lightheadedness are worse in the mornings. Her dyspnea apparently is stable. She denies chest pain, palpitations, fall or syncope. This pleasant late middle aged woman is lying comfortably. Heart rate currently 60 beats per minute and regular blood pressure 128/70, respiratory rate 16. BMI 28. No pallor or cyanosis. Trachea midline. Neck veins were 3 cm above the sternal angle. Good air entry both lung thomson with no current signs of congestion. Apical impulse not palpable. Soft S1, normal S2 with soft systolic murmur. +/- pitting edema half up both lower legs. EKG July 22, 2020 showed sinus arrhythmia with sinus pause and junctional escape with average heart rate 62 BPM. Brief sinus arrest with junctional escape beat, left atrial conduction disturbance. Incomplete right bundle branch block. Subtle lateral ST-T wave abnormalities. August 08, 2020 hemoglobin 12.5, normal white blood cell count and platelet count. Electrolytes were in balance with potassium 4.5, BUN slightly elevated at 26, creatinine 0.96, random glucose 110. DESCRIPTION OF PROCEDURE: With the patient in the fasting state having signed informed consent and having received Ancef 1 gm IV premedication, she was taken to the operating theater. Numerous skin electrodes were applied to facilitate continuous electrocardiographic monitoring. The left subclavian region was prepped and draped in the usual fashion. The left axillary vein was catheterized using micropuncture technique. A 5 cm linear incision was made several centimeters below and parallel to the left clavicle. Dissection was carried down to the level of the pectoralis fascia and a pocket was fashioned below the level of the incision line. Two bipolar screw-in active fixation steroid-eluting pacing leads were then positioned to the right ventricular apex and the anterior right atrial freewall under fluoroscopic and electrocardiographic control. Right ventricular lead ([employer], model #[id number], serial #[id number]) measurements were: Stimulation threshold 0.6 V/0.4 ms/impedance 660 ohms. The R wave amplitude measured 11.8 mV. The atrial lead ([employer] model #[id number]/52, serial #[id number]) was positioned in multiple spots prior to finding an adequate site for stimulation with adequate intracardiac electrogram, measurements were: Stimulation threshold 1.0V/0.4 ms/impedance 442 ohms. The P wave amplitude measured 2.1 mV. These leads were secured into position with sleeves sutured at their insertion site. They were then connected to a dual chamber pulse generator ([employer], MRI Compatible System, model #[id number], serial # [id number]) and appropriate DDD pacing was documented. The generator was placed in the pocket and secured into position with a suture through the upper right hand corner of the epoxy header. The subcutaneous tissues were approximated using a running chromic suture and the skin was closed using igor. A dry dressing was applied, and the patient was returned to the recovery room in good condition. ESTIMATED BLOOD LOSS: 5 mL. COMPLICATIONS: No apparent complications. Postoperative portal upright chest x-ray showed good lead position with no pneumothorax. Her EKG showed consistent atrially-paced rhythm that alternated with spontaneous atrial activity that was appropriately sensed with out current AV pacing settings. Spontaneous AV conduction was observed with her narrow QRS complexes. Our plan is to monitor her overnight and she will receive an additional three doses of Ancef 1 gm every 8 hours IV. We intend to obtain a follow up PA and left lateral chest x-ray and EKG in the morning and would anticipate her discharge home at that time.
[2020-08-12 08:32] VITALS: BP 119/61
[2020-08-12 08:40] VITALS: BP 119/61
[2020-08-12] MEDS: DOCUSATE SODIUM 100MG CAPSULE PO SCH (08:40)
[2020-08-12] MEDS: GABAPENTIN 100 MG CAP PO SCH (08:41)
--- NOTE | 2020-08-12 08:42 | ECGEPIP ---
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
--- NOTE | 2020-08-12 08:45 | REP ---
INDICATION: Post pacemaker implant COMPARISON: 08/11/2020 TECHNIQUE: PA and lateral. FINDINGS: The mediastinum and cardiac silhouette are normal. Newly placed pacemaker in satisfactory position. No pneumothorax. The lung thomson are clear and without acute consolidation, effusion, or pneumothorax. The skeletal structures are intact and normal. IMPRESSION: No acute cardiopulmonary process. New pacemaker. No pneumothorax consolidation or effusion. <Electronically signed by Mainor El > 08/12/20 [id number]
--- NOTE | 2020-08-12 08:46 | ECGEPIP ---
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
[2020-08-12] MEDS ORDERED: TORSEMIDE 10 MG TABLET PO SCH (09:00)
[2020-08-12] MEDS ORDERED: ASPIRIN 81 MG CHEW TABLET PO SCH (09:00)
[2020-08-12 11:56] VITALS: BP 96/54
== END 2020-08-12 14:03 | disposition home or self-care (01) ==
LOC: M SDC 11:39 → M PCU 15:39 → M SDC 08-12 14:03
PROVIDERS: ATTEND Internal Medicine Cardiovascular Disease
DX: I49.5 Sick sinus syndrome (principal); I25.10 Atherosclerotic heart disease of native coronary artery without angina pectoris; Z98.61 Coronary angioplasty status; Z79.82 Long term (current) use of aspirin; Z79.899 Other long term (current) drug therapy; M81.0 Age-related osteoporosis without current pathological fracture
CPT/HCPCS: 33208; 36415; 71045; 71046; 76000; 80048; 83735; 85027; 93005; 96365; 96366; C1785; C1898; J0690; J2250; J2405; J3010

== ENCOUNTER → 2020-08-30 | Outpatient (REF) | payer MEDICARE ==
[~2020-08-30] MED LIST changes: -AMIODARONE 150MG/3ML INJ (J0282) As Ordered ONE; -AMIODARONE HCL 360 MG/200 ML PREMIXED BAG (NEXTERONE) (J0282 PER 30MG) As Ordered ONE; -BACITRACIN PWD 50,000 UNITS VIAL As Ordered ONE; -ISOVUE-300 61% 50ML VIAL As Ordered ONE; -LIDOCAINE 1% MDV 20ML VIAL SQ PRN; -LIDOCAINE 1% SDV 30ML VIAL As Ordered ONE; -LR 1,000 ML IV ONE; -ceFAZolin SOD 1 GM in D5W MINI-BAG PLUS 50 ML IV ONE
[2020-08-30 14:17] LABS: BASO % 0.9 % (0.0-1.0); EOS # 0.2 10^3/uL (0.0-0.5); EOS % 4.7 % (0.0-3.0); HEMATOCRIT 37.7 % (36.0-47.0); HEMOGLOBIN 12.1 g/dl (12.0-15.5); LYMPH # 1.5 10^3/uL (1.5-5.0); LYMPH % 33.3 % (24.0-44.0); MEAN CORPUSCULAR HEMOGLOBIN 29.5 pg (27.0-33.0); MEAN CORPUSCULAR HGB CONC 32.1 g/dl (32.0-36.5); MONO # 0.3 10^3/uL (0.0-0.8); MONO % 7.4 % (2.0-8.0); NEUTROPHILS # 2.4 10^3/uL (1.5-8.5); NEUTROPHILS % 53.5 % (36.0-66.0); PLATELET COUNT, AUTOMATED 203 10^3/uL (150-450); WHITE BLOOD COUNT 4.5 10^3/uL (4.0-10.0)
[2020-08-30 14:40] LABS: HEMOGLOBIN A1c 5.6 %
[2020-08-30 14:58] LABS: BILIRUBIN,TOTAL 0.4 MG/DL (0.2-1.0); CALCIUM LEVEL 9.4 MG/DL (8.8-10.2); CHOLESTEROL RISK RATIO 2.54 (<5); CREATININE FOR GFR 1.02 MG/DL (0.55-1.30); FREE T4 0.84 NG/DL (0.76-1.46); GLOMERULAR FILTRATION RATE 57.7 (>45); POTASSIUM SERUM 4.2 MEQ/L (3.5-5.1); THYROID STIMULATING HORMONE 1.71 uIU/ML (0.358-3.740); TOTAL 25(OH) VITAMIN D 48.6 NG/ML (30.0-100.0)
[2020-08-31 11:08] LABS: H PYLORI SERUM QUANT IgG ABY 0.07 (0.00-0.79)
== END ==
LOC: M SFHCPLAZ 11:19
PROVIDERS: ATTEND Family Medicine
DX: R73.01 Impaired fasting glucose (principal); E55.9 Vitamin D deficiency, unspecified; E78.2 Mixed hyperlipidemia; I10 Essential (primary) hypertension

== ENCOUNTER → 2021-01-16 | Outpatient (CLI) | payer MEDICARE ==
[2021-01-16 15:34] LABS: BASO % 0.7 % (0.0-1.0); EOS # 0.1 10^3/uL (0.0-0.5); EOS % 1.1 % (0.0-3.0); HEMATOCRIT 38.5 % (36.0-47.0); HEMOGLOBIN 12.1 g/dl (12.0-15.5); LYMPH # 1.2 10^3/uL (1.5-5.0); LYMPH % 27.6 % (24.0-44.0); MEAN CORPUSCULAR HGB CONC 31.4 g/dl (32.0-36.5); MEAN CORPUSCULAR VOLUME 92.3 fl (80.0-96.0); MONO # 0.3 10^3/uL (0.0-0.8); MONO % 6.9 % (2.0-8.0); NEUTROPHILS # 2.9 10^3/uL (1.5-8.5); NEUTROPHILS % 63.5 % (36.0-66.0); PLATELET COUNT, AUTOMATED 173 10^3/uL (150-450); RED BLOOD COUNT 4.17 10^6/uL (4.00-5.40); WHITE BLOOD COUNT 4.5 10^3/uL (4.0-10.0)
[2021-01-16 15:52] LABS: HEMOGLOBIN A1c 5.9 %
[2021-01-16 16:01] LABS: ALBUMIN 4.3 GM/DL (3.2-5.2); ALT/SGPT 34 U/L (12-78); BILIRUBIN,TOTAL 0.4 MG/DL (0.2-1.0); BLOOD UREA NITROGEN 19 MG/DL (7-18); CALCIUM LEVEL 9.8 MG/DL (8.8-10.2); CARBON DIOXIDE LEVEL 31 MEQ/L (21-32); CHLORIDE LEVEL 108 MEQ/L (98-107); GLOMERULAR FILTRATION RATE > 60.0 (>45); GLUCOSE, FASTING 91 MG/DL (70-100); MAGNESIUM LEVEL 2.4 MG/DL (1.8-2.4); NT-PRO BNP 63 PG/ML (<125); POTASSIUM SERUM 4.4 MEQ/L (3.5-5.1); SODIUM LEVEL 142 MEQ/L (136-145); TOTAL PROTEIN 7.3 GM/DL (6.4-8.2)
[2021-01-16 16:10] LABS: VITAMIN B12 LEVEL 376 PG/ML (247-911)
[2021-01-17 11:16] LABS: ALBUMIN % 63.1 % (55.8-66.1); ALPHA-1-GLOBULIN % 3.9 % (2.9-4.9); ALPHA-2-GLOBULINS % 9.4 % (7.1-11.8); BETA-1-GLOBULINS % 5.9 % (4.7-7.2)
[2021-01-17 11:17] LABS: ALBUMIN 4.61 GM/DL (3.29-5.55); ALPHA-1-GLOBULINS 0.28 GM/DL (0.17-0.41); ALPHA-2-GLOBULINS 0.69 GM/DL (0.42-0.99); BETA-1-GLOBULINS 0.43 GM/DL (0.28-0.60); BETA-2-GLOBULINS 0.38 GM/DL (0.19-0.55); BETA-2-GLOBULINS % 5.2 % (3.2-6.5); GAMMA GLOBULIN % 12.5 % (11.1-18.8); GAMMA GLOBULINS 0.91 GM/DL (0.65-1.58)
== END ==
LOC: M PLALAB 13:01
PROVIDERS: ATTEND Family Medicine
DX: D72.819 Decreased white blood cell count, unspecified (principal); R73.01 Impaired fasting glucose; I11.0 Hypertensive heart disease with heart failure; M47.812 Spondylosis without myelopathy or radiculopathy, cervical region; I50.32 Chronic diastolic (congestive) heart failure

== ENCOUNTER → 2021-01-27 | Outpatient (CLI) | payer MEDICARE ==
[2021-01-27 14:03] LABS: ALBUMIN 4.5 GM/DL (3.2-5.2); CALCIUM LEVEL 10.7 MG/DL (8.8-10.2); CREATININE FOR GFR 1.04 MG/DL (0.55-1.30); GLOMERULAR FILTRATION RATE 56.3 (>45); MAGNESIUM LEVEL 2.7 MG/DL (1.8-2.4); PHOSPHORUS LEVEL 3.4 MG/DL (2.5-4.9); POTASSIUM SERUM 4.4 MEQ/L (3.5-5.1)
== END ==
LOC: M PLALAB 11:07
PROVIDERS: ATTEND Physician Assistant
DX: I50.32 Chronic diastolic (congestive) heart failure (principal)

== ENCOUNTER → 2021-03-07 | Outpatient (REF) | payer MEDICARE | LOC: M LAB REF 19:12 | PROVIDERS: ATTEND Family Medicine | DX: D04.72 Carcinoma in situ of skin of left lower limb, including hip (principal); B07.9 Viral wart, unspecified; L82.1 Other seborrheic keratosis ==

== ENCOUNTER → 2021-04-11 | Outpatient (REF) | payer MEDICARE | LOC: M SFHCPLAZ 10:07 | PROVIDERS: ATTEND Family Medicine | DX: L97.929 Non-pressure chronic ulcer of unspecified part of left lower leg with unspecified severity (principal) ==

== ENCOUNTER → 2021-04-18 | Outpatient (CLI) | payer MEDICARE ==
--- NOTE | 2021-04-18 14:23 | REPMRS ---
Patient History The patient states she has not had a clinical breast exam in over a year. Patient is postmenopausal and has history of other cancer at age 65. Family history of breast cancer in maternal aunt, breast cancer in paternal aunt. Benign stereotactic core biopsy of the left breast, 2006. Took unspecified hormones for 26 years. Patient states no breast complaints today. Patient has signed MRS History Sheet. Digital Woman Screen Mammo: April 18, 2021 - Exam #: [id number] Bilateral CC and MLO view(s) were taken. Technologist: Fadia Noble, Technologist Prior study comparison: July 24, 2019, bilateral digital woman screen mammo performed at [facility]. December 16, 2018, left breast diagnostic unilateral mammo, performed at [facility]. FINDINGS: There are scattered fibroglandular densities. Screening. Digital screening (2D) mammography was performed bilaterally in the CC and MLO projections. Additionally, breast tomosynthesis (3D mammography) was performed bilaterally in the CC and MLO projections. Todays exam was compared to the prior exam/exams. By history, the patient has no complaints of a palpable breast abnormality or other significant breast complaints. The breasts are unchanged in size and shape. There are no maria luisa-soft tissue densities or spiculated masses. There is no internal architectural distortion. Once again, stable benign appearing calcifications are seen.There are no suspicious maria luisa-calcific clusters. Skin thickening or nipple retraction is not present. IMPRESSION: BI-RADS Category 2- Benign Findings. There is no evidence of malignant alteration of the breasts. Followup examination recommended in one year. The Volpara volumetric breast density category is B, there are scattered areas of fibroglandular densities. This mammogram was read with the assistance of [facility] CueThink,an FDA approved computer aided detection system for mammography. The lifetime Tyrer-Cuzick score is 6.5 % Negative x-ray reports should not delay surgical consultation if a dominant or clinically suspicious mass is present. Not all breast cancers can be identified by mammography. Therefore, we recommend that you continue to perform regular breast self-examination and physical examination and then promptly contact your physician of any concerns or changes. Adenosis and dense breasts may obscure an underlying neoplasm. Assessment: BI-RADS/ACR category 2 mammogram. Benign Findings. Recommendation Routine screening mammogram of both breasts in 1 year. Electronically Signed By: Guillermo Darling DO 04/18/21 [id number]
== END ==
LOC: M WHC 12:47
PROVIDERS: ATTEND Family Medicine
DX: Z12.31 Encounter for screening mammogram for malignant neoplasm of breast (principal); Z80.3 Family history of malignant neoplasm of breast

== ENCOUNTER → 2021-06-09 | Outpatient (CLI) | payer MEDICARE ==
[2021-06-09 13:35] LABS: BASO % 0.5 % (0.0-1.0); EOS # 0.2 10^3/uL (0.0-0.5); EOS % 2.9 % (0.0-3.0); HEMATOCRIT 35.5 % (36.0-47.0); HEMOGLOBIN 11.5 g/dl (12.0-15.5); LYMPH # 1.6 10^3/uL (1.5-5.0); LYMPH % 29.2 % (24.0-44.0); MEAN CORPUSCULAR HGB CONC 32.4 g/dl (32.0-36.5); MEAN CORPUSCULAR VOLUME 92.7 fl (80.0-96.0); MONO # 0.4 10^3/uL (0.0-0.8); MONO % 7.8 % (2.0-8.0); NEUTROPHILS # 3.3 10^3/uL (1.5-8.5); NEUTROPHILS % 59.2 % (36.0-66.0); PLATELET COUNT, AUTOMATED 188 10^3/uL (150-450); RED BLOOD COUNT 3.83 10^6/uL (4.00-5.40); WHITE BLOOD COUNT 5.5 10^3/uL (4.0-10.0)
[2021-06-09 13:59] LABS: HEMOGLOBIN A1c 5.6 %
[2021-06-09 14:14] LABS: ALBUMIN 4.2 GM/DL (3.2-5.2); BILIRUBIN,TOTAL 0.5 MG/DL (0.2-1.0); CALCIUM LEVEL 10.2 MG/DL (8.8-10.2); CREATININE FOR GFR 1.15 MG/DL (0.55-1.30); GLOMERULAR FILTRATION RATE 50.1 (>45); POTASSIUM SERUM 4.2 MEQ/L (3.5-5.1); PTH INTACT 55.9 PG/ML (18.5-88.0); TOTAL 25(OH) VITAMIN D 51.5 NG/ML (30.0-100.0); TOTAL PROTEIN 7.4 GM/DL (6.4-8.2)
[2021-06-09 14:16] LABS: MALB URINE SIEMENS 5.8 MG/L; MAU/CREAT RATIO 4.6 MCG/MG (0.0-30.0)
== END ==
LOC: M PLALAB 10:32
PROVIDERS: ATTEND Family Medicine
DX: D72.819 Decreased white blood cell count, unspecified (principal); E55.9 Vitamin D deficiency, unspecified; R73.01 Impaired fasting glucose; Z79.899 Other long term (current) drug therapy

== ENCOUNTER → 2021-10-10 | Outpatient (CLI) | payer MEDICARE ==
[~2021-10-10] MED LIST changes: -D31000TA2 PO; +VITA100093 PO
[2021-10-10 15:40] LABS: BASO % 0.7 % (0.0-1.0); EOS # 0.2 10^3/uL (0.0-0.5); EOS % 2.6 % (0.0-3.0); HEMATOCRIT 37.7 % (36.0-47.0); HEMOGLOBIN 12.1 g/dl (12.0-15.5); LYMPH # 1.7 10^3/uL (1.5-5.0); LYMPH % 29.6 % (24.0-44.0); MEAN CORPUSCULAR HEMOGLOBIN 29.4 pg (27.0-33.0); MEAN CORPUSCULAR HGB CONC 32.1 g/dl (32.0-36.5); MEAN CORPUSCULAR VOLUME 91.5 fl (80.0-96.0); MONO # 0.4 10^3/uL (0.0-0.8); MONO % 6.7 % (2.0-8.0); NEUTROPHILS # 3.4 10^3/uL (1.5-8.5); NEUTROPHILS % 60.2 % (36.0-66.0); PLATELET COUNT, AUTOMATED 225 10^3/uL (150-450); RED BLOOD COUNT 4.12 10^6/uL (4.00-5.40); WHITE BLOOD COUNT 5.7 10^3/uL (4.0-10.0)
[2021-10-10 17:11] LABS: ALBUMIN 4.3 GM/DL (3.2-5.2); BILIRUBIN,TOTAL 0.5 MG/DL (0.2-1.0); CALCIUM LEVEL 9.7 MG/DL (8.8-10.2); CHOLESTEROL RISK RATIO 2.683 (<5); CREATININE FOR GFR 1.17 MG/DL (0.55-1.30); MAGNESIUM LEVEL 2.4 MG/DL (1.8-2.4); POTASSIUM SERUM 3.9 MEQ/L (3.5-5.1); PTH INTACT 77.2 PG/ML (18.5-88.0); TOTAL PROTEIN 7.4 GM/DL (6.4-8.2)
[2021-10-10 18:46] LABS: HEMOGLOBIN A1c 5.7 %
== END ==
LOC: M PLALAB 12:24
PROVIDERS: ATTEND Family Medicine
DX: D72.819 Decreased white blood cell count, unspecified (principal); D50.9 Iron deficiency anemia, unspecified; E78.00 Pure hypercholesterolemia, unspecified

== ENCOUNTER → 2022-02-26 | Outpatient (CLI) | payer MEDICARE ==
[2022-02-26 13:39] LABS: BASO % 0.9 % (0.0-1.0); EOS # 0.4 10^3/uL (0.0-0.5); EOS % 7.9 % (0.0-3.0); HEMATOCRIT 36.5 % (36.0-47.0); HEMOGLOBIN 11.6 g/dl (12.0-15.5); LYMPH # 1.4 10^3/uL (1.5-5.0); LYMPH % 29.9 % (24.0-44.0); MEAN CORPUSCULAR HEMOGLOBIN 28.9 pg (27.0-33.0); MEAN CORPUSCULAR HGB CONC 31.8 g/dl (32.0-36.5); MONO # 0.3 10^3/uL (0.0-0.8); MONO % 6.2 % (2.0-8.0); NEUTROPHILS # 2.6 10^3/uL (1.5-8.5); NEUTROPHILS % 54.9 % (36.0-66.0); PLATELET COUNT, AUTOMATED 165 10^3/uL (150-450); RED BLOOD COUNT 4.01 10^6/uL (4.00-5.40); WHITE BLOOD COUNT 4.7 10^3/uL (4.0-10.0)
[2022-02-26 14:38] LABS: ALBUMIN 3.7 GM/DL (3.2-5.2); BILIRUBIN,TOTAL 0.7 MG/DL (0.2-1.0); CALCIUM LEVEL 9.1 MG/DL (8.8-10.2); GLOMERULAR FILTRATION RATE 58.7 (>45); POTASSIUM SERUM 4.4 MEQ/L (3.5-5.1); TOTAL PROTEIN 6.8 GM/DL (6.4-8.2)
[2022-02-26 15:47] LABS: MALB URINE SIEMENS 8.1 MG/L; MAU/CREAT RATIO 4.5 MCG/MG (0.0-30.0)
[2022-02-26 21:22] LABS: HEMOGLOBIN A1c 5.9 %
[2022-02-28 17:08] LABS: INSULIN LEVEL 42.3 uIU/mL (2.6-24.9)
== END ==
LOC: M PLALAB 11:38
PROVIDERS: ATTEND Family Medicine
DX: D72.819 Decreased white blood cell count, unspecified (principal); I10 Essential (primary) hypertension; R73.01 Impaired fasting glucose

== ENCOUNTER → 2022-03-13 | Outpatient (CLI) | payer MEDICARE | LOC: M PLAIMG 15:05 | PROVIDERS: ATTEND Family Medicine | DX: R05.2 Subacute cough (principal) ==

== ENCOUNTER → 2022-04-12 | Outpatient (CLI) | payer MEDICARE | LOC: M RAD 11:03 | PROVIDERS: ATTEND Physician Assistant | DX: J30.9 Allergic rhinitis, unspecified (principal) ==

== ENCOUNTER → 2022-07-18 | Outpatient (CLI) | payer MEDICARE | LOC: M WHC 14:00 | PROVIDERS: ATTEND Family Medicine | DX: Z12.31 Encounter for screening mammogram for malignant neoplasm of breast (principal); M81.0 Age-related osteoporosis without current pathological fracture; M85.851 Other specified disorders of bone density and structure, right thigh; M85.852 Other specified disorders of bone density and structure, left thigh ==

== ENCOUNTER → 2022-07-31 | Outpatient (CLI) | payer MEDICARE ==
[2022-07-31 16:04] LABS: FREE T4 0.98 NG/DL (0.89-1.76)
[2022-07-31 16:06] LABS: C REACTIVE PROTEIN QUANTITATIV < 0.40 MG/DL (<1.0)
[2022-07-31 16:07] LABS: CPK CREATINE PHOSPHOKINASE 46 U/L (34-145); TOTAL 25(OH) VITAMIN D 54.3 NG/ML (20.0-100.0)
[2022-07-31 16:08] LABS: ALKALINE PHOSPHATASE 77 U/L (46-116); ALT/SGPT 27 U/L (7.0-40); AST/SGOT 25 U/L (<34); BILIRUBIN,TOTAL 0.6 MG/DL (0.3-1.2); BLOOD UREA NITROGEN 16 MG/DL (9-23); CALCIUM LEVEL 9.9 MG/DL (8.3-10.6); CARBON DIOXIDE LEVEL 28 MMOL/L (20-31); CHLORIDE LEVEL 105 MMOL/L (98-107); CREATININE FOR GFR 1.07 MG/DL (0.55-1.30); GLOMERULAR FILTRATION RATE 54.3 (>45); GLUCOSE, FASTING 97 MG/DL (74-106); POTASSIUM SERUM 4.4 MMOL/L (3.5-5.1); PTH INTACT 49.8 PG/ML (18.5-88.0); SODIUM LEVEL 141 MMOL/L (136-145); TOTAL PROTEIN 7.1 G/DL (5.7-8.2)
[2022-07-31 17:29] LABS: HEMOGLOBIN A1c 5.4 % (4.0-6.0)
== END ==
LOC: M PLALAB 11:55
PROVIDERS: ATTEND Family Medicine
DX: E78.2 Mixed hyperlipidemia (principal); E55.9 Vitamin D deficiency, unspecified; R73.01 Impaired fasting glucose; Z79.899 Other long term (current) drug therapy

== ENCOUNTER → 2022-08-20 | Outpatient (CLI) | payer MEDICARE ==
[~2022-08-20] MED LIST changes: +LEVOTAB10 PO; +OCUV1CAP4 PO
== END ==
LOC: M LABSMTC 10:57
PROVIDERS: ATTEND Anesthesiology
DX: Z01.818 Encounter for other preprocedural examination (principal)

== ENCOUNTER 2022-08-23 09:51 | Day surgery (SDC) | payer MEDICARE ==
[~2022-08-23] VITALS: Ht 160 cm; Wt 74.8 kg
[2022-08-23] MEDS ORDERED: METHYLENE BLUE 0.5% (5MG/ML) 10 ML AMP (PROVAYBLUE) As Ordered ONE (11:08)
[2022-08-23] MEDS ORDERED: LIDOCAINE W/EPINEPHRINE 1% 20ML VIAL As Ordered ONE (11:08)
[2022-08-23] MEDS ORDERED: EPINEPHrine 1MG/ML INJ 30ML MD-VIAL As Ordered ONE (11:08)
[2022-08-23] MEDS ORDERED: LR 1,000 ML IV SCH ×3 (11:40→16:15)
[2022-08-23] MEDS ORDERED: LIDOCAINE 1% SDV 5ML VIAL SC PRN (11:40)
[2022-08-23] MEDS ORDERED: fentaNYL 100 MCG/2 ML INJECTION As Ordered ONE (14:13)
[2022-08-23] MEDS ORDERED: MIDAZOLAM INJ 2MG/2ML VIAL As Ordered ONE (14:13)
[2022-08-23] MEDS ORDERED: ACETAMINOPHEN 1000MG 100ML IV BAG As Ordered ONE (14:15)
[2022-08-23] MEDS ORDERED: ONDANSETRON 4MG 2ML VIAL As Ordered ONE (14:15)
[2022-08-23] MEDS ORDERED: SUGAMMADEX SODIUM 500 MG/5 ML VIAL (BRIDION) As Ordered ONE (14:16)
[2022-08-23] MEDS ORDERED: KETOROLAC 60MG 2ML VIAL As Ordered ONE (14:16)
[2022-08-23] MEDS ORDERED: LIDOCAINE 2% 100MG/5ML SDV (FOR ANES.) As Ordered ONE (14:16)
[2022-08-23] MEDS ORDERED: propofoL 200 MG/20 ML VIAL As Ordered ONE (14:16)
[2022-08-23] MEDS ORDERED: ROCURONIUM BROMIDE 50MG/5ML VIAL As Ordered ONE (14:16)
[2022-08-23] MEDS ORDERED: oxyCODONE 5MG TAB PO PRN (15:30)
[2022-08-23] MEDS ORDERED: HYDROMORPHONE HCL 0.5 MG/ 0.5 ML SYRINGE IV PRN (15:30)
[2022-08-23] MEDS ORDERED: ONDANSETRON 4MG 2ML VIAL IV PRN (15:30)
[2022-08-23 16:55] VITALS: BP 128/63
== END 2022-08-23 17:50 | disposition home or self-care (01) ==
LOC: M SDC 09:51
PROVIDERS: ATTEND Otolaryngology
DX: J01.01 Acute recurrent maxillary sinusitis (principal); I11.0 Hypertensive heart disease with heart failure; I50.9 Heart failure, unspecified; I35.9 Nonrheumatic aortic valve disorder, unspecified; I25.10 Atherosclerotic heart disease of native coronary artery without angina pectoris; I25.2 Old myocardial infarction; R01.1 Cardiac murmur, unspecified; K21.9 Gastro-esophageal reflux disease without esophagitis; Z95.5 Presence of coronary angioplasty implant and graft; M54.2 Cervicalgia; M19.90 Unspecified osteoarthritis, unspecified site; Z95.0 Presence of cardiac pacemaker; Z88.3 Allergy status to other anti-infective agents; Z79.899 Other long term (current) drug therapy; Z79.82 Long term (current) use of aspirin
CPT/HCPCS: 30999; 31267; 88305; J1100; J1170; J2250; J2405; J3010; Q9968

== ENCOUNTER → 2022-09-04 | Outpatient (REF) | payer MEDICARE | LOC: M SFHCPLAZ 17:13 | PROVIDERS: ATTEND Family Medicine | DX: C44.321 Squamous cell carcinoma of skin of nose (principal) ==

== ENCOUNTER 2022-09-16 11:22 | Emergency (ER) | payer MEDICARE ==
[2022-09-16 11:59] LABS: BASO % 0.3 % (0.0-1.0); EOS # 0.7 10^3/uL (0.0-0.5); EOS % 17.5 % (0.0-3.0); HEMATOCRIT 31.3 % (36.0-47.0); HEMOGLOBIN 10.4 g/dl (12.0-15.5); LYMPH % 25.1 % (24.0-44.0); MEAN CORPUSCULAR HEMOGLOBIN 29.9 pg (27.0-33.0); MEAN CORPUSCULAR HGB CONC 33.2 g/dl (32.0-36.5); MEAN CORPUSCULAR VOLUME 89.9 fl (80.0-96.0); MONO # 0.2 10^3/uL (0.0-0.8); MONO % 5.6 % (2.0-8.0); NEUTROPHILS % 51.2 % (36.0-66.0); PLATELET COUNT, AUTOMATED 124 10^3/uL (150-450); RED BLOOD COUNT 3.48 10^6/uL (4.00-5.40)
[2022-09-16 12:27] LABS: BLOOD UREA NITROGEN 22 MG/DL (9-23); CALCIUM LEVEL 9.1 MG/DL (8.3-10.6); CARBON DIOXIDE LEVEL 25 MMOL/L (20-31); CHLORIDE LEVEL 101 MMOL/L (98-107); CK-MB VALUE MASS < 1.0 NG/ML (<3.6); CPK CREATINE PHOSPHOKINASE 455 U/L (34-145); CREATININE FOR GFR 1.14 MG/DL (0.55-1.30); GLOMERULAR FILTRATION RATE 50.3 (>45); GLUCOSE, FASTING 104 MG/DL (74-106); MB/CK RELATIVE INDEX 0.21 (< OR =4); SODIUM LEVEL 135 MMOL/L (136-145)
[2022-09-16 12:29] LABS: RSV AMPLIFICATION NEGATIVE (NEGATIVE)
[2022-09-16 12:46] LABS: INR 0.92; PROTHROMBIN TIME 12.6 SECONDS (12.5-14.5)
[2022-09-16 12:47] LABS: PARTIAL THROMBOPLASTIN TIME 27.5 SECONDS (24.8-34.2)
[2022-09-16] MEDS ORDERED: methylPREDNISolone 125MG 2ML VIAL IV ONE (13:05)
[2022-09-16] MEDS ORDERED: BENZONATATE 100MG CAPSULE PO ONE (13:05)
[2022-09-16] MEDS ORDERED: COMBIVENT RESPIMAT 100-20MCG INHALER 4GM INH ONE (13:05)
[2022-09-16 13:10] LABS: CK-MB VALUE MASS < 1.0 NG/ML (<3.6)
[2022-09-16] MEDS ORDERED: ACETAMINOPHEN TAB 650MG DOSE (2X325MG) PO ONE (13:10)
[2022-09-16 13:11] LABS: ALBUMIN 3.4 G/DL (3.2-5.2); BILIRUBIN,DIRECT 0.2 MG/DL (<0.4); BILIRUBIN,TOTAL 0.4 MG/DL (0.3-1.2); CPK CREATINE PHOSPHOKINASE 447 U/L (34-145); MB/CK RELATIVE INDEX 0.22 (< OR =4); TOTAL PROTEIN 6.3 G/DL (5.7-8.2)
[2022-09-16] MEDS ORDERED: ISOVUE-370 76% 100ML VIAL As Ordered ONE (13:14)
[2022-09-16] MEDS ORDERED: PRED20TA PO (15:22)
[2022-09-16] MEDS ORDERED: ALBU8.5H INH (15:22)
[2022-09-16] MEDS ORDERED: BENZ200C70 PO (15:22)
[2022-09-16 15:30] VITALS: BP 120/61
== END 2022-09-16 15:39 | disposition home or self-care (01) ==
LOC: EDSEX 11:22 → EDBD 11:22 → M ED 12:36
DX: J20.9 Acute bronchitis, unspecified (principal); I25.9 Chronic ischemic heart disease, unspecified; G56.00 Carpal tunnel syndrome, unspecified upper limb; Z85.828 Personal history of other malignant neoplasm of skin; Z88.8 Allergy status to other drugs, medicaments and biological substances; Z79.82 Long term (current) use of aspirin; Z79.899 Other long term (current) drug therapy
CPT/HCPCS: 71045; 71275; 80048; 80076; 82550; 82553; 83690; 83880; 84484; 85025; 85610; 85730; 87040; 87486; 87581; 87631; 87633; 87798; 93005; 93041; 94640; 94760; 96374; 99285; J2930; Q9967

== ENCOUNTER → 2022-09-25 | Outpatient (CLI) | payer MEDICARE ==
[~2022-09-25] MED LIST changes: +ALBU8.5H INH; +BENZ200C70 PO; +PRED20TA PO
[2022-09-25 14:22] LABS: ALBUMIN 4.1 G/DL (3.2-5.2); BILIRUBIN,TOTAL 0.6 MG/DL (0.3-1.2); CALCIUM LEVEL 10.6 MG/DL (8.3-10.6); CREATININE FOR GFR 1.09 MG/DL (0.55-1.30); FREE T4 1.48 NG/DL (0.89-1.76); POTASSIUM SERUM 4.5 MMOL/L (3.5-5.1); THYROID STIMULATING HORMONE 1.239 uIU/ML (0.55-4.78); TOTAL PROTEIN 7.1 G/DL (5.7-8.2)
[2022-09-25 14:25] LABS: BASO # 0.1 10^3/uL (0.0-0.2); BASO % 0.8 % (0.0-1.0); EOS # 0.2 10^3/uL (0.0-0.5); EOS % 1.9 % (0.0-3.0); HEMATOCRIT 40.3 % (36.0-47.0); HEMOGLOBIN 12.7 g/dl (12.0-15.5); LYMPH # 2.3 10^3/uL (1.5-5.0); LYMPH % 21.3 % (24.0-44.0); MEAN CORPUSCULAR HEMOGLOBIN 29.7 pg (27.0-33.0); MEAN CORPUSCULAR HGB CONC 31.5 g/dl (32.0-36.5); MEAN CORPUSCULAR VOLUME 94.2 fl (80.0-96.0); MONO # 0.7 10^3/uL (0.0-0.8); MONO % 6.2 % (2.0-8.0); NEUTROPHILS # 7.4 10^3/uL (1.5-8.5); NEUTROPHILS % 68.7 % (36.0-66.0); PLATELET COUNT, AUTOMATED 364 10^3/uL (150-450); RED BLOOD COUNT 4.28 10^6/uL (4.00-5.40); WHITE BLOOD COUNT 10.8 10^3/uL (4.0-10.0)
[2022-09-25 15:07] LABS: ERYTHROCYTE SEDIMENTATION RATE 26 mm/hr (0-30)
[2022-09-26 18:09] LABS: CK 1 (BB) 0 % (0); CK 2 (MB) 0 % (0-3); CK 3 (MM) 100 % (97-100); CK MACRO I PERCENT 0 % (Not Observed); CK MACRO II PERCENT 0 % (Not Observed); CK TOTAL 52 U/L (32-182)
== END ==
LOC: M PLALAB 11:03
PROVIDERS: ATTEND Physician Assistant
DX: D61.818 Other pancytopenia (principal); R00.0 Tachycardia, unspecified

== ENCOUNTER → 2022-10-11 | Outpatient (CLI) | payer MEDICARE ==
[2022-10-11 18:31] LABS: BASO # 0.1 10^3/uL (0.0-0.2); BASO % 0.9 % (0.0-1.0); EOS # 0.6 10^3/uL (0.0-0.5); EOS % 8.6 % (0.0-3.0); HEMATOCRIT 38.6 % (36.0-47.0); LYMPH # 1.6 10^3/uL (1.5-5.0); LYMPH % 24.2 % (24.0-44.0); MEAN CORPUSCULAR HEMOGLOBIN 29.5 pg (27.0-33.0); MEAN CORPUSCULAR HGB CONC 31.1 g/dl (32.0-36.5); MEAN CORPUSCULAR VOLUME 94.8 fl (80.0-96.0); MONO # 0.4 10^3/uL (0.0-0.8); MONO % 5.8 % (2.0-8.0); NEUTROPHILS # 3.9 10^3/uL (1.5-8.5); NEUTROPHILS % 60.2 % (36.0-66.0); PLATELET COUNT, AUTOMATED 284 10^3/uL (150-450); RED BLOOD COUNT 4.07 10^6/uL (4.00-5.40); WHITE BLOOD COUNT 6.5 10^3/uL (4.0-10.0)
[2022-10-11 18:42] LABS: C REACTIVE PROTEIN QUANTITATIV < 0.40 MG/DL (<1.0)
[2022-10-11 18:43] LABS: ALBUMIN 4.2 G/DL (3.2-5.2); ALKALINE PHOSPHATASE 176 U/L (46-116); ALT/SGPT 25 U/L (7.0-40); AST/SGOT 21 U/L (<34); BILIRUBIN,TOTAL 0.4 MG/DL (0.3-1.2); BLOOD UREA NITROGEN 15 MG/DL (9-23); CALCIUM LEVEL 9.6 MG/DL (8.3-10.6); CARBON DIOXIDE LEVEL 29 MMOL/L (20-31); CHLORIDE LEVEL 102 MMOL/L (98-107); CREATININE FOR GFR 0.94 MG/DL (0.55-1.30); GLOMERULAR FILTRATION RATE > 60.0 (>45); GLUCOSE, FASTING 91 MG/DL (74-106); POTASSIUM SERUM 3.8 MMOL/L (3.5-5.1); SODIUM LEVEL 141 MMOL/L (136-145); TOTAL PROTEIN 7.7 G/DL (5.7-8.2)
[2022-10-11 19:08] LABS: ERYTHROCYTE SEDIMENTATION RATE 38 mm/hr (0-30)
[2022-10-13 16:11] LABS: MYCOPLASMA PNEUMONIAE IgG 528 U/mL (0-99); MYCOPLASMA PNEUMONIAE IgM <770 U/mL (0-769)
== END ==
LOC: M PLALAB 16:08
PROVIDERS: ATTEND Family Medicine
DX: R05.9 Cough, unspecified (principal); Z95.0 Presence of cardiac pacemaker; Z79.899 Other long term (current) drug therapy

== ENCOUNTER → 2022-11-20 | Outpatient (REF) | payer MEDICARE | LOC: M LAB REF 17:33 | PROVIDERS: ATTEND Physician Assistant Medical | DX: J32.0 Chronic maxillary sinusitis (principal) ==

== ENCOUNTER → 2022-12-18 | Outpatient (REF) | payer MEDICARE | LOC: M LAB REF 17:29 | PROVIDERS: ATTEND Physician Assistant Medical | DX: J32.0 Chronic maxillary sinusitis (principal) ==

== ENCOUNTER → 2023-01-30 | Outpatient (CLI) | payer MEDICARE ==
[2023-01-30 15:36] LABS: CREATININE FOR GFR 1.05 MG/DL (0.55-1.30); GLOMERULAR FILTRATION RATE 55.3 (>45)
== END ==
LOC: M PLALAB 10:33
PROVIDERS: ATTEND Orthopaedic Surgery
DX: M47.892 Other spondylosis, cervical region (principal); M50.322 Other cervical disc degeneration at C5-C6 level

== ENCOUNTER → 2023-01-30 | Outpatient (CLI) | payer MEDICARE ==
[2023-01-30 15:19] LABS: BASO % 0.7 % (0.0-1.0); EOS # 0.2 10^3/uL (0.0-0.5); EOS % 5.2 % (0.0-3.0); HEMATOCRIT 38.1 % (36.0-47.0); HEMOGLOBIN 12.1 g/dl (12.0-15.5); LYMPH # 1.4 10^3/uL (1.5-5.0); LYMPH % 30.7 % (24.0-44.0); MEAN CORPUSCULAR HEMOGLOBIN 29.7 pg (27.0-33.0); MEAN CORPUSCULAR HGB CONC 31.8 g/dl (32.0-36.5); MEAN CORPUSCULAR VOLUME 93.4 fl (80.0-96.0); MONO # 0.3 10^3/uL (0.0-0.8); NEUTROPHILS # 2.6 10^3/uL (1.5-8.5); NEUTROPHILS % 56.2 % (36.0-66.0); PLATELET COUNT, AUTOMATED 219 10^3/uL (150-450); RED BLOOD COUNT 4.08 10^6/uL (4.00-5.40); WHITE BLOOD COUNT 4.6 10^3/uL (4.0-10.0)
[2023-01-30 15:36] LABS: IMMUNOGLOBULIN A 191.7 MG/DL (40-350)
[2023-01-30 16:15] LABS: HEMOGLOBIN A1c 5.8 % (4.0-6.0)
[2023-01-30 16:22] LABS: ALBUMIN 4.4 G/DL (3.2-5.2); BILIRUBIN,TOTAL 0.7 MG/DL (0.3-1.2); CALCIUM LEVEL 10.1 MG/DL (8.3-10.6); CHOLESTEROL RISK RATIO 2.47 (<5); CREATININE FOR GFR 0.99 MG/DL (0.55-1.30); GLOMERULAR FILTRATION RATE 59.2 (>45); HDL CHOLESTEROL 61.8 MG/DL (>40); LDL CHOLESTEROL 64.8 MG/DL (<100); NON-HDL-C 91.2 MG/DL; POTASSIUM SERUM 4.2 MMOL/L (3.5-5.1); TOTAL PROTEIN 6.9 G/DL (5.7-8.2)
[2023-01-30 16:46] LABS: IMMUNOGLOBULIN E 8.7 IU/ML (0-378)
[2023-02-04 18:10] LABS: IMMUNOTYPING SERUM IGA SO 185 mg/dL (87-352); IMMUNOTYPING SERUM IGM SO 84 mg/dL (26-217); INSULIN LEVEL 6.6 uIU/mL (2.6-24.9)
== END ==
LOC: M PLALAB 10:31
PROVIDERS: ATTEND Family Medicine
DX: I10 Essential (primary) hypertension (principal); E78.2 Mixed hyperlipidemia; D72.819 Decreased white blood cell count, unspecified; R73.01 Impaired fasting glucose; J01.00 Acute maxillary sinusitis, unspecified

== ENCOUNTER → 2023-02-04 | Outpatient (REF) | payer MEDICARE | LOC: M SFHCPLAZ 13:56 | PROVIDERS: ATTEND Family Medicine | DX: D72.819 Decreased white blood cell count, unspecified (principal); I50.32 Chronic diastolic (congestive) heart failure; R73.01 Impaired fasting glucose ==

== ENCOUNTER → 2023-03-01 | Outpatient (CLI) | payer MEDICARE | LOC: M PLAIMG 13:14 | PROVIDERS: ATTEND Physician Assistant Medical | DX: J32.0 Chronic maxillary sinusitis (principal) ==

== ENCOUNTER → 2023-03-13 | Outpatient (CLI) | payer MEDICARE | LOC: M PLAIMG 15:05 | PROVIDERS: ATTEND Nurse Practitioner Family | DX: J40 Bronchitis, not specified as acute or chronic (principal); Z95.0 Presence of cardiac pacemaker ==

== ENCOUNTER → 2023-04-09 | Outpatient (CLI) | payer MEDICARE ==
[2023-04-09 14:10] LABS: CALCIUM LEVEL 9.9 MG/DL (8.3-10.6); CREATININE FOR GFR 1.03 MG/DL (0.55-1.30); GLOMERULAR FILTRATION RATE 56.6 (>45); MAGNESIUM LEVEL 2.3 MG/DL (1.8-2.4); PHOSPHORUS LEVEL 2.9 MG/DL (2.4-5.1); POTASSIUM SERUM 4.5 MMOL/L (3.5-5.1)
[2023-04-09 17:45] LABS: PTH INTACT 49.1 PG/ML (18.5-88.0)
== END ==
LOC: M RAD 12:49
PROVIDERS: ATTEND Physician Assistant
DX: E83.52 Hypercalcemia (principal); N17.9 Acute kidney failure, unspecified

== ENCOUNTER → 2023-05-20 | Outpatient (CLI) | payer MEDICARE ==
[2023-05-20 16:11] LABS: BASO % 0.7 % (0.0-1.0); EOS # 0.2 10^3/uL (0.0-0.5); HEMOGLOBIN 12.2 g/dl (12.0-15.5); LYMPH # 1.3 10^3/uL (1.5-5.0); LYMPH % 28.1 % (24.0-44.0); MEAN CORPUSCULAR HEMOGLOBIN 30.2 pg (27.0-33.0); MEAN CORPUSCULAR HGB CONC 32.1 g/dl (32.0-36.5); MEAN CORPUSCULAR VOLUME 94.1 fl (80.0-96.0); MONO # 0.3 10^3/uL (0.0-0.8); MONO % 6.9 % (2.0-8.0); NEUTROPHILS # 2.7 10^3/uL (1.5-8.5); NEUTROPHILS % 60.1 % (36.0-66.0); PLATELET COUNT, AUTOMATED 201 10^3/uL (150-450); RED BLOOD COUNT 4.04 10^6/uL (4.00-5.40); WHITE BLOOD COUNT 4.5 10^3/uL (4.0-10.0)
[2023-05-20 16:44] LABS: ERYTHROCYTE SEDIMENTATION RATE 26 mm/hr (0-30)
[2023-05-20 18:50] LABS: IMMUNOGLOBULIN A 186.5 MG/DL (40-350); IMMUNOGLOBULIN G 939 MG/DL (650-1600)
[2023-05-20 18:53] LABS: IMMUNOGLOBULIN E 21.7 IU/ML (0-378)
== END ==
LOC: M PLALAB 14:41
PROVIDERS: ATTEND Allergy & Immunology Allergy
DX: D84.9 Immunodeficiency, unspecified (principal)

== ENCOUNTER → 2023-06-10 | Outpatient (CLI) | payer MEDICARE ==
[2023-06-10 14:37] LABS: BASO # 0.1 10^3/uL (0.0-0.2); BASO % 1.1 % (0.0-1.0); EOS # 0.2 10^3/uL (0.0-0.5); EOS % 4.7 % (0.0-3.0); HEMATOCRIT 37.9 % (36.0-47.0); HEMOGLOBIN 12.2 g/dl (12.0-15.5); LYMPH # 1.6 10^3/uL (1.5-5.0); LYMPH % 34.9 % (24.0-44.0); MEAN CORPUSCULAR HEMOGLOBIN 30.7 pg (27.0-33.0); MEAN CORPUSCULAR HGB CONC 32.2 g/dl (32.0-36.5); MEAN CORPUSCULAR VOLUME 95.2 fl (80.0-96.0); MONO # 0.3 10^3/uL (0.0-0.8); MONO % 6.9 % (2.0-8.0); NEUTROPHILS # 2.4 10^3/uL (1.5-8.5); NEUTROPHILS % 52.2 % (36.0-66.0); PLATELET COUNT, AUTOMATED 233 10^3/uL (150-450); RED BLOOD COUNT 3.98 10^6/uL (4.00-5.40); WHITE BLOOD COUNT 4.6 10^3/uL (4.0-10.0)
[2023-06-10 15:03] LABS: BILIRUBIN,TOTAL 0.6 MG/DL (0.3-1.2); CALCIUM LEVEL 9.8 MG/DL (8.3-10.6); CREATININE FOR GFR 1.03 MG/DL (0.55-1.30); GLOMERULAR FILTRATION RATE 56.6 (>45); MAGNESIUM LEVEL 2.2 MG/DL (1.8-2.4); POTASSIUM SERUM 4.3 MMOL/L (3.5-5.1); TOTAL PROTEIN 6.9 G/DL (5.7-8.2)
[2023-06-10 15:52] LABS: HEMOGLOBIN A1c 5.2 % (4.0-6.0)
== END ==
LOC: M PLALAB 12:36
PROVIDERS: ATTEND Family Medicine
DX: D72.819 Decreased white blood cell count, unspecified (principal); I50.32 Chronic diastolic (congestive) heart failure; R73.01 Impaired fasting glucose

== ENCOUNTER → 2023-06-21 | Outpatient (REF) | payer MEDICARE | LOC: M SFHCPLAZ 14:18 | PROVIDERS: ATTEND Family Medicine | DX: I50.32 Chronic diastolic (congestive) heart failure (principal); E55.9 Vitamin D deficiency, unspecified; I10 Essential (primary) hypertension ==

== ENCOUNTER → 2023-08-07 | Outpatient (CLI) | payer MEDICARE ==
[2023-08-07 15:39] LABS: BASO % 0.4 % (0.0-1.0); EOS # 0.6 10^3/uL (0.0-0.5); EOS % 9.1 % (0.0-3.0); HEMATOCRIT 37.7 % (36.0-47.0); HEMOGLOBIN 12.1 g/dl (12.0-15.5); LYMPH # 1.5 10^3/uL (1.5-5.0); LYMPH % 20.8 % (24.0-44.0); MEAN CORPUSCULAR HEMOGLOBIN 30.8 pg (27.0-33.0); MEAN CORPUSCULAR HGB CONC 32.1 g/dl (32.0-36.5); MEAN CORPUSCULAR VOLUME 95.9 fl (80.0-96.0); MONO # 0.5 10^3/uL (0.0-0.8); MONO % 6.6 % (2.0-8.0); NEUTROPHILS # 4.4 10^3/uL (1.5-8.5); NEUTROPHILS % 62.8 % (36.0-66.0); PLATELET COUNT, AUTOMATED 207 10^3/uL (150-450); RED BLOOD COUNT 3.93 10^6/uL (4.00-5.40)
[2023-08-07 16:07] LABS: ALBUMIN 3.9 G/DL (3.2-5.2); ALKALINE PHOSPHATASE 105 U/L (46-116); ALT/SGPT 23 U/L (7.0-40); AST/SGOT 15 U/L (<34); BILIRUBIN,TOTAL 0.3 MG/DL (0.3-1.2); BLOOD UREA NITROGEN 20 MG/DL (9-23); CALCIUM LEVEL 9.9 MG/DL (8.3-10.6); CARBON DIOXIDE LEVEL 30 MMOL/L (20-31); CHLORIDE LEVEL 107 MMOL/L (98-107); CREATININE FOR GFR 0.86 MG/DL (0.55-1.30); GLOMERULAR FILTRATION RATE > 60.0 (>45); GLUCOSE, FASTING 101 MG/DL (74-106); POTASSIUM SERUM 4.5 MMOL/L (3.5-5.1); SODIUM LEVEL 142 MMOL/L (136-145); TOTAL PROTEIN 6.9 G/DL (5.7-8.2)
[2023-08-07 19:34] LABS: RSV AMPLIFICATION NEGATIVE (NEGATIVE)
== END ==
LOC: M PLALAB 14:01
PROVIDERS: ATTEND Nurse Practitioner Family
DX: R09.89 Other specified symptoms and signs involving the circulatory and respiratory systems (principal)

== ENCOUNTER 2023-08-17 13:19 | Emergency (ER) | payer MEDICARE ==
[~2023-08-17] VITALS: Ht 162.6 cm; Wt 70.3 kg
[2023-08-17] MEDS: IPRATROPIUM 0.5MG/ALBUTEROL 2.5MG INH SOL UD 3ML (DUONEB) NEB ONE (14:56)
[2023-08-17 15:15] LABS: BASO # 0.1 10^3/uL (0.0-0.2); BASO % 0.7 % (0.0-1.0); EOS # 0.5 10^3/uL (0.0-0.5); EOS % 6.6 % (0.0-3.0); HEMATOCRIT 40.2 % (36.0-47.0); HEMOGLOBIN 13.3 g/dl (12.0-15.5); LYMPH # 1.2 10^3/uL (1.5-5.0); LYMPH % 14.7 % (24.0-44.0); MEAN CORPUSCULAR HEMOGLOBIN 30.5 pg (27.0-33.0); MEAN CORPUSCULAR HGB CONC 33.1 g/dl (32.0-36.5); MEAN CORPUSCULAR VOLUME 92.2 fl (80.0-96.0); MONO # 0.4 10^3/uL (0.0-0.8); MONO % 5.5 % (2.0-8.0); NEUTROPHILS # 5.8 10^3/uL (1.5-8.5); NEUTROPHILS % 72.1 % (36.0-66.0); PLATELET COUNT, AUTOMATED 243 10^3/uL (150-450); RED BLOOD COUNT 4.36 10^6/uL (4.00-5.40)
[2023-08-17 15:30] LABS: CPK CREATINE PHOSPHOKINASE 39 U/L (34-145)
[2023-08-17 15:31] LABS: ALBUMIN 4.2 G/DL (3.2-5.2); ALKALINE PHOSPHATASE 138 U/L (46-116); ALT/SGPT 25 U/L (7.0-40); AST/SGOT 13 U/L (<34); BILIRUBIN,DIRECT 0.2 MG/DL (<0.4); BILIRUBIN,TOTAL 0.6 MG/DL (0.3-1.2); BLOOD UREA NITROGEN 23 MG/DL (9-23); CALCIUM LEVEL 10.3 MG/DL (8.3-10.6); CARBON DIOXIDE LEVEL 28 MMOL/L (20-31); CHLORIDE LEVEL 101 MMOL/L (98-107); CK-MB VALUE MASS < 1.0 NG/ML (<3.6); CREATININE FOR GFR 0.96 MG/DL (0.55-1.30); GLOMERULAR FILTRATION RATE > 60.0 (>45); GLUCOSE, FASTING 104 MG/DL (74-106); MB/CK RELATIVE INDEX 2.56 (< OR =4); POTASSIUM SERUM 3.4 MMOL/L (3.5-5.1); SODIUM LEVEL 137 MMOL/L (136-145); TOTAL PROTEIN 7.3 G/DL (5.7-8.2)
[2023-08-17 15:33] LABS: THYROXINE (T4) 8.7 UG/DL (4.5-10.9)
[2023-08-17 15:38] LABS: VENOUS BASE EXCESS -0.7 (-2.0-2.0); VENOUS HCO3 25.4 MMOL/L (23.0-27.0); VENOUS O2 SATURATION 70.5 % (60.0-80.0); VENOUS PARTIAL PRESSURE CO2 47.2 mmHg (38.0-50.0); VENOUS PARTIAL PRESSURE O2 38.4 mmHg (30.0-50.0); VENOUS PH 7.348 UNITS (7.330-7.430); VENOUS STANDARD HCO3 23.2 MMOL/L; VENOUS TOTAL CO2 26.8 MMOL/L (24.0-28.0)
[2023-08-17] MEDS: NS 1,000 ML IV ONE (15:45)
[2023-08-17 16:19] LABS: INR 0.99; PROTHROMBIN TIME 12.8 SECONDS (12.5-14.5)
[2023-08-17 16:32] LABS: CK-MB VALUE MASS < 1.0 NG/ML (<3.6)
[2023-08-17 16:37] LABS: CPK CREATINE PHOSPHOKINASE 47 U/L (34-145); MB/CK RELATIVE INDEX 2.12 (< OR =4)
[2023-08-17] MEDS ORDERED: ISOVUE-370 76% 100ML VIAL As Ordered ONE (16:42)
[2023-08-17] MEDS ORDERED: ALBU6.7H6 INH (18:28)
[2023-08-17] MEDS: ALBUTEROL 90 MCG/ACT 8GM HFA INHALER INH ONE (18:34)
[2023-08-17 18:45] VITALS: BP 119/62
[2023-08-17 18:49] VITALS: TEMP 97.7; O2SAT 98
== END 2023-08-17 18:57 | disposition home or self-care (01) ==
LOC: M ED 13:19
DX: R07.9 Chest pain, unspecified (principal); R00.2 Palpitations; R06.00 Dyspnea, unspecified; B34.8 Other viral infections of unspecified site; I25.2 Old myocardial infarction; I10 Essential (primary) hypertension; I44.4 Left anterior fascicular block; R00.0 Tachycardia, unspecified; Z88.1 Allergy status to other antibiotic agents; Z88.8 Allergy status to other drugs, medicaments and biological substances; Z87.891 Personal history of nicotine dependence; Z79.52 Long term (current) use of systemic steroids; Z79.82 Long term (current) use of aspirin; Z79.891 Long term (current) use of opiate analgesic; Z79.899 Other long term (current) drug therapy
CPT/HCPCS: 71045; 71275; 80047; 80048; 80076; 82550; 82553; 82803; 83605; 83880; 84436; 84443; 84484; 85025; 85610; 87040; 87486; 87581; 87633; 87798; 93005; 93041; 94640; 94760; 96360; 99285; Q9967

== ENCOUNTER → 2023-09-03 | Outpatient (REF) | payer MEDICARE ==
[~2023-09-03] MED LIST changes: +ALBU6.7H6 INH
== END ==
LOC: M SFHCPLAZ 17:56
PROVIDERS: ATTEND Family Medicine
DX: D48.9 Neoplasm of uncertain behavior, unspecified (principal)

== ENCOUNTER → 2023-09-06 | Outpatient (CLI) | payer MEDICARE | LOC: M PLAIMG 13:29 | PROVIDERS: ATTEND Physician Assistant | DX: I50.32 Chronic diastolic (congestive) heart failure (principal); R06.02 Shortness of breath ==

== ENCOUNTER → 2023-09-10 | Outpatient (CLI) | payer MEDICARE | LOC: M CARPUL 08:51 | PROVIDERS: ATTEND Family Medicine | DX: R06.09 Other forms of dyspnea (principal) ==

== ENCOUNTER → 2023-11-07 | Outpatient (CLI) | payer MEDICARE ==
[~2023-11-07] MED LIST changes: -ROSU40TA4 PO; +ROSU40TA63 PO
[2023-11-07 16:07] LABS: BASO % 0.6 % (0.0-1.0); EOS # 0.1 10^3/uL (0.0-0.5); EOS % 2.9 % (0.0-3.0); HEMATOCRIT 36.9 % (36.0-47.0); HEMOGLOBIN 11.9 g/dl (12.0-15.5); LYMPH # 1.6 10^3/uL (1.5-5.0); LYMPH % 33.5 % (24.0-44.0); MEAN CORPUSCULAR HEMOGLOBIN 30.8 pg (27.0-33.0); MEAN CORPUSCULAR HGB CONC 32.2 g/dl (32.0-36.5); MEAN CORPUSCULAR VOLUME 95.6 fl (80.0-96.0); MONO # 0.3 10^3/uL (0.0-0.8); MONO % 6.7 % (2.0-8.0); NEUTROPHILS # 2.7 10^3/uL (1.5-8.5); NEUTROPHILS % 56.1 % (36.0-66.0); PLATELET COUNT, AUTOMATED 207 10^3/uL (150-450); RED BLOOD COUNT 3.86 10^6/uL (4.00-5.40); WHITE BLOOD COUNT 4.8 10^3/uL (4.0-10.0)
[2023-11-07 16:34] LABS: ALBUMIN 4.1 G/DL (3.2-5.2); BILIRUBIN,TOTAL 0.4 MG/DL (0.3-1.2); CALCIUM LEVEL 9.8 MG/DL (8.3-10.6); CHOLESTEROL RISK RATIO 2.81 (<5); CREATININE FOR GFR 0.99 MG/DL (0.55-1.30); FERRITIN 21.3 NG/ML (7.3-270.7); HDL CHOLESTEROL 51.9 MG/DL (>40); LDL CHOLESTEROL 62.3 MG/DL (<100); NON-HDL-C 94.1 MG/DL; POTASSIUM SERUM 4.4 MMOL/L (3.5-5.1); PTH INTACT 60.2 PG/ML (18.5-88.0); TOTAL 25(OH) VITAMIN D 55.1 NG/ML (20.0-100.0); TOTAL PROTEIN 6.8 G/DL (5.7-8.2)
== END ==
LOC: M PLALAB 12:37
PROVIDERS: ATTEND Family Medicine
DX: E55.9 Vitamin D deficiency, unspecified (principal); D50.9 Iron deficiency anemia, unspecified; E78.00 Pure hypercholesterolemia, unspecified

== ENCOUNTER → 2023-11-07 | Outpatient (CLI) | payer MEDICARE ==
[2023-11-14 03:09] LABS: STREP PNEUMO TYPE 12F <0.1 ug/mL (>1.3); STREP PNEUMO TYPE 14 12.3 ug/mL (>1.3); STREP PNEUMO TYPE 18C 2.8 ug/mL (>1.3); STREP PNEUMO TYPE 19A 2.9 ug/mL (>1.3); STREP PNEUMO TYPE 19F 3.9 ug/mL (>1.3); STREP PNEUMO TYPE 23F 0.5 ug/mL (>1.3); STREP PNEUMO TYPE 3 0.5 ug/mL (>1.3); STREP PNEUMO TYPE 4 3.4 ug/mL (>1.3); STREP PNEUMO TYPE 6B 2.1 ug/mL (>1.3); STREP PNEUMO TYPE 7F 4.5 ug/mL (>1.3); STREP PNEUMO TYPE 8 2.6 ug/mL (>1.3); STREP PNEUMO TYPE 9N 2.5 ug/mL (>1.3); STREP PNEUMO TYPE 9V 1.7 ug/mL (>1.3)
== END ==
LOC: M PLALAB 12:39
PROVIDERS: ATTEND Allergy & Immunology Allergy
DX: D84.9 Immunodeficiency, unspecified (principal)

== ENCOUNTER → 2023-11-19 | Outpatient (CLI) | payer MEDICARE | LOC: M PLAIMG 09:44 | PROVIDERS: ATTEND Otolaryngology | DX: J32.0 Chronic maxillary sinusitis (principal) ==

== ENCOUNTER → 2024-02-20 | Outpatient (REF) | payer MEDICARE ==
[~2024-02-20] MED LIST changes: +BREO1INH3 INH
== END ==
LOC: M SFHCPLAZ 16:02
PROVIDERS: ATTEND Family Medicine
DX: I50.32 Chronic diastolic (congestive) heart failure (principal); D75.89 Other specified diseases of blood and blood-forming organs; R06.09 Other forms of dyspnea

== ENCOUNTER → 2024-02-25 | Outpatient (CLI) | payer MEDICARE ==
[2024-02-25 13:59] LABS: BASO % 0.8 % (0.0-1.0); EOS # 0.4 10^3/uL (0.0-0.5); EOS % 8.2 % (0.0-3.0); HEMATOCRIT 37.6 % (36.0-47.0); LYMPH # 1.7 10^3/uL (1.5-5.0); LYMPH % 32.5 % (24.0-44.0); MEAN CORPUSCULAR HEMOGLOBIN 30.6 pg (27.0-33.0); MEAN CORPUSCULAR HGB CONC 31.9 g/dl (32.0-36.5); MEAN CORPUSCULAR VOLUME 95.9 fl (80.0-96.0); MONO # 0.3 10^3/uL (0.0-0.8); MONO % 5.1 % (2.0-8.0); NEUTROPHILS # 2.7 10^3/uL (1.5-8.5); NEUTROPHILS % 53.2 % (36.0-66.0); PLATELET COUNT, AUTOMATED 214 10^3/uL (150-450); RED BLOOD COUNT 3.92 10^6/uL (4.00-5.40); WHITE BLOOD COUNT 5.1 10^3/uL (4.0-10.0)
[2024-02-25 14:28] LABS: ALBUMIN 4.2 G/DL (3.2-5.2); ALKALINE PHOSPHATASE 85 U/L (46-116); ALT/SGPT 21 U/L (7.0-40); AST/SGOT 16 U/L (<34); BILIRUBIN,TOTAL 0.4 MG/DL (0.3-1.2); BLOOD UREA NITROGEN 18 MG/DL (9-23); CALCIUM LEVEL 9.9 MG/DL (8.3-10.6); CARBON DIOXIDE LEVEL 26 MMOL/L (20-31); CHLORIDE LEVEL 107 MMOL/L (98-107); CREATININE FOR GFR 0.91 MG/DL (0.55-1.30); GLOMERULAR FILTRATION RATE > 60.0 (>39); GLUCOSE, FASTING 90 MG/DL (74-106); POTASSIUM SERUM 4.2 MMOL/L (3.5-5.1); SODIUM LEVEL 139 MMOL/L (136-145); TOTAL PROTEIN 7.2 G/DL (5.7-8.2); VITAMIN B12 LEVEL 448 PG/ML (211-911)
[2024-02-25 14:29] LABS: FERRITIN 21.1 NG/ML (7.3-270.7)
[2024-02-26 08:02] LABS: PROTEIN, TOTAL SO 7.1 g/dL (6.1-8.1)
[2024-02-26 14:43] LABS: BERMUDA GRASS IGE < 0.10 kU/L (<0.10); BIRCH IGE < 0.10 kU/L (<0.10); COMMON RAGWEED SHORT IGE < 0.10 kU/L (<0.10); D001 IGE D PTERONYSSINUS < 0.10 kU/L (<0.10); D002-IGE D FARINAE < 0.10 kU/L (<0.10); E001-IGE CAT DANDER < 0.10 kU/L (<0.10); E005-IGE DOG DANDER < 0.10 kU/L (<0.10); ELM IGE < 0.10 kU/L (<0.10); I006 IGE COCKROACH < 0.10 kU/L (<0.10); IMMUNOGLOBULIN E FOR ALLERGENS 82 kU/L (<OR=114); M002 IGE CLADOSPORIUM HERBARU < 0.10 kU/L (<0.10); M003 IGE ASPERGILLUS FUMIGATU < 0.10 kU/L (<0.10); M006 IGE ALTERNIA ALTERNATA < 0.10 kU/L (<0.10); M1-PENICILLIUM NOTATUM < 0.10 kU/L (<0.10); MOUSE URINE IGE < 0.10 kU/L (<0.10); MUGWORT IGE < 0.10 kU/L (<0.10); OAK IGE < 0.10 kU/L (<0.10); ROUGH PIGWEED IGE < 0.10 kU/L (<0.10); SHEEP SORREL IGE < 0.10 kU/L (<0.10); SYCAMORE IGE < 0.10 kU/L (<0.10); T001-IGE MAPLE BOX ELDER < 0.10 kU/L (<0.10); T006-IGE MOUNTAIN CEDAR < 0.10 kU/L (<0.10); T014 COTTONWOOD IGE < 0.10 kU/L (<0.10); TIMOTHY GRASS IGE < 0.10 kU/L (<0.10); WALNUT TREE IGE < 0.10 kU/L (<0.10); WHITE ASH IGE < 0.10 kU/L (<0.10); WHITE MULBERRY IGE < 0.10 kU/L (<0.10)
== END ==
LOC: M PLALAB 11:18
PROVIDERS: ATTEND Family Medicine
DX: D75.89 Other specified diseases of blood and blood-forming organs (principal); I50.32 Chronic diastolic (congestive) heart failure; R06.2 Wheezing

== ENCOUNTER 2024-03-06 09:19 | Day surgery (SDC) | payer MEDICARE ==
[~2024-03-06] VITALS: Ht 160 cm; Wt 70.3 kg
[~2024-03-06 09:19] MED LIST changes: -ROSU40TA63 PO; +ROSU40TA81 PO
[2024-03-06] MEDS: LR 1,000 ML IV SCH (11:03)
[2024-03-06] MEDS ORDERED: HYDROmorphone HCL 2MG/ML 1ML VIAL As Ordered ONE (11:20)
[2024-03-06] MEDS ORDERED: fentaNYL 100 MCG/2 ML INJECTION As Ordered ONE (11:20)
[2024-03-06] MEDS ORDERED: MIDAZOLAM INJ 2MG/2ML VIAL As Ordered ONE (11:20)
[2024-03-06] MEDS ORDERED: LIDOCAINE 2% 100MG/5ML SDV (FOR ANES.) As Ordered ONE (11:22)
[2024-03-06] MEDS ORDERED: propofoL 200 MG/20 ML VIAL As Ordered ONE (11:22)
[2024-03-06] MEDS ORDERED: ROCURONIUM BROMIDE 50MG/5ML VIAL As Ordered ONE (11:22)
[2024-03-06] MEDS ORDERED: SUGAMMADEX SODIUM 500 MG/5 ML VIAL (BRIDION) As Ordered ONE (11:23)
[2024-03-06] MEDS ORDERED: ONDANSETRON 4MG 2ML VIAL As Ordered ONE (11:23)
[2024-03-06] MEDS ORDERED: ACETAMINOPHEN 1000MG 100ML IV BAG As Ordered ONE (11:23)
[2024-03-06] MEDS: SODIUM CHLORIDE 0.9% NASAL GEL 15GM (AYR) As Ordered ONE (11:44)
[2024-03-06] MEDS: METHYLENE BLUE 0.5% (5MG/ML) 10 ML AMP (PROVAYBLUE) As Ordered ONE (12:56)
[2024-03-06] MEDS: EPINEPHrine 1MG/ML INJ 30ML MD-VIAL As Ordered ONE (13:00)
[2024-03-06] MEDS: LIDOCAINE W/EPINEPHRINE 1% 20ML VIAL As Ordered ONE (15:15)
[2024-03-06] MEDS ORDERED: HYDROMORPHONE HCL 0.5 MG/ 0.5 ML SYRINGE IV PRN (15:35)
[2024-03-06] MEDS ORDERED: fentaNYL 100 MCG/2 ML INJECTION IV PRN (15:35)
[2024-03-06] MEDS ORDERED: LR 1,000 ML IV SCH (15:35)
[2024-03-06] MEDS: oxyCODONE 5MG TAB PO PRN (16:31)
[2024-03-06] MEDS: ONDANSETRON 4MG 2ML VIAL IV PRN (16:31)
[2024-03-06 19:15] VITALS: BP 153/8; TEMP 97; O2SAT 95
== END 2024-03-06 19:18 | disposition home or self-care (01) ==
LOC: M SDC 09:19
PROVIDERS: ATTEND Otolaryngology
DX: J32.8 Other chronic sinusitis (principal); J33.8 Other polyp of sinus; I49.5 Sick sinus syndrome; I25.10 Atherosclerotic heart disease of native coronary artery without angina pectoris; I11.0 Hypertensive heart disease with heart failure; I50.32 Chronic diastolic (congestive) heart failure; J45.20 Mild intermittent asthma, uncomplicated; I25.2 Old myocardial infarction; Z95.0 Presence of cardiac pacemaker; Z95.5 Presence of coronary angioplasty implant and graft; Z79.899 Other long term (current) drug therapy; Z79.82 Long term (current) use of aspirin; C44.729 Squamous cell carcinoma of skin of left lower limb, including hip; Z79.51 Long term (current) use of inhaled steroids; R01.1 Cardiac murmur, unspecified; E78.00 Pure hypercholesterolemia, unspecified; Z90.49 Acquired absence of other specified parts of digestive tract; E55.9 Vitamin D deficiency, unspecified; Z88.1 Allergy status to other antibiotic agents
CPT/HCPCS: 31255; 31267; 31296; 61782; 88305; C2625; J0131; J0171; J1100; J1170; J2250; J2405; J3010

== ENCOUNTER → 2024-08-11 | Outpatient (CLI) | payer MEDICARE ==
[2024-08-11 15:17] LABS: BASO # 0.1 10^3/uL (0.0-0.2); BASO % 1.3 % (0.0-1.0); EOS # 1.2 10^3/uL (0.0-0.5); EOS % 18.3 % (0.0-3.0); HEMATOCRIT 37.2 % (36.0-47.0); HEMOGLOBIN 11.8 g/dl (12.0-15.5); LYMPH # 1.6 10^3/uL (1.5-5.0); LYMPH % 25.5 % (24.0-44.0); MEAN CORPUSCULAR HEMOGLOBIN 30.2 pg (27.0-33.0); MEAN CORPUSCULAR HGB CONC 31.7 g/dl (32.0-36.5); MEAN CORPUSCULAR VOLUME 95.1 fl (80.0-96.0); MONO # 0.5 10^3/uL (0.0-0.8); MONO % 7.2 % (2.0-8.0); NEUTROPHILS % 47.2 % (36.0-66.0); PLATELET COUNT, AUTOMATED 239 10^3/uL (150-450); RED BLOOD COUNT 3.91 10^6/uL (4.00-5.40); WHITE BLOOD COUNT 6.4 10^3/uL (4.0-10.0)
[2024-08-11 15:32] LABS: ALBUMIN 3.8 G/DL (3.2-5.2); ALKALINE PHOSPHATASE 83 U/L (35-104); ALT/SGPT 31 U/L (7.0-40); AST/SGOT 19 U/L (<34); BILIRUBIN,TOTAL 0.4 MG/DL (0.3-1.2); BLOOD UREA NITROGEN 15 MG/DL (9-23); CARBON DIOXIDE LEVEL 24 MMOL/L (20-31); CHLORIDE LEVEL 105 MMOL/L (98-107); CHOLESTEROL LEVEL 158 MG/DL (<200); CHOLESTEROL RISK RATIO 3.03 (<5); GLOMERULAR FILTRATION RATE > 60.0 (>39); GLUCOSE, FASTING 93 MG/DL (74-106); HDL CHOLESTEROL 52.1 MG/DL (>40); LDL CHOLESTEROL 79.7 MG/DL (<100); NON-HDL-C 105.9 MG/DL; POTASSIUM SERUM 4.4 MMOL/L (3.5-5.1); SODIUM LEVEL 142 MMOL/L (136-145); TOTAL PROTEIN 7.4 G/DL (5.7-8.2); TRIGLYCERIDES LEVEL 131 MG/DL (<150)
[2024-08-11 15:34] LABS: FERRITIN 25.8 NG/ML (7.3-270.7)
[2024-08-11 15:44] LABS: HEMOGLOBIN A1c 5.5 % (4.0-6.0)
== END ==
LOC: M PLALAB 12:46
PROVIDERS: ATTEND Family Medicine
DX: R73.01 Impaired fasting glucose (principal); E78.00 Pure hypercholesterolemia, unspecified; D50.9 Iron deficiency anemia, unspecified

== ENCOUNTER → 2024-08-12 | Outpatient (REF) | payer MEDICARE | LOC: M SFHCPLAZ 12:49 | PROVIDERS: ATTEND Nurse Practitioner Adult Health | DX: R09.81 Nasal congestion (principal) ==

== ENCOUNTER → 2024-08-12 | Outpatient (CLI) | payer MEDICARE | LOC: M PLAIMG 10:08 | PROVIDERS: ATTEND Nurse Practitioner Adult Health | DX: J45.909 Unspecified asthma, uncomplicated (principal) ==

== ENCOUNTER → 2024-09-08 | Outpatient (CLI) | payer MEDICARE | LOC: M WHC 12:29 | PROVIDERS: ATTEND Family Medicine | DX: Z12.31 Encounter for screening mammogram for malignant neoplasm of breast (principal) ==

== ENCOUNTER → 2024-11-04 | Outpatient (CLI) | payer MEDICARE | LOC: M WHC 11:00 | PROVIDERS: ATTEND Family Medicine | DX: M81.0 Age-related osteoporosis without current pathological fracture (principal) ==

== ENCOUNTER → 2025-01-05 | Outpatient (CLI) | payer MEDICARE ==
[~2025-01-05] MED LIST changes: +AZEL1SPR3 NARES; +OMEP40CA5 PO; +SODI88SP; +TELM1TAB33 PO; +TORS20TA2 PO
[2025-01-05 13:58] LABS: BASO # 0.0 10^3/uL (0.0-0.2); BASO % 0.8 % (0.0-1.0); EOS # 0.3 10^3/uL (0.0-0.5); EOS % 4.9 % (0.0-3.0); LYMPH # 1.8 10^3/uL (1.5-5.0); LYMPH % 34.5 % (24.0-44.0); MONO # 0.3 10^3/uL (0.0-0.8); MONO % 6.7 % (2.0-8.0); NEUTROPHILS # 2.7 10^3/uL (1.5-8.5); NEUTROPHILS % 52.9 % (36.0-66.0); PLATELET COUNT, AUTOMATED 196 10^3/uL (150-450)
[2025-01-05 14:08] LABS: ALT/SGPT 18.0 U/L (7.0-40); AST/SGOT 20.0 U/L (<34); CALCIUM LEVEL 10.0 MG/DL (8.3-10.6); CARBON DIOXIDE LEVEL 28.0 MMOL/L (20-31); CHLORIDE LEVEL 109.0 MMOL/L (98-107); CREATININE FOR GFR 0.97 MG/DL (0.55-1.30); FREE T4 1.27 NG/DL (0.89-1.76); GLOMERULAR FILTRATION RATE 62.5 (>39); POTASSIUM SERUM 4.5 MMOL/L (3.5-5.1); PTH INTACT 46.1 PG/ML (18.5-88.0); SODIUM LEVEL 144.0 MMOL/L (136-145); TOTAL 25(OH) VITAMIN D 68.4 NG/ML (20.0-100.0)
[2025-01-05 16:44] LABS: ESTIMATED AVERAGE GLUCOSE 108.0 MG/DL (60-110)
== END ==
LOC: M PLALAB 09:13
PROVIDERS: ATTEND Family Medicine
DX: R73.01 Impaired fasting glucose (principal); D50.9 Iron deficiency anemia, unspecified; E07.9 Disorder of thyroid, unspecified

== ENCOUNTER 2025-01-11 07:26 | Day surgery (SDC) | payer MEDICARE ==
[~2025-01-11] VITALS: Ht 160 cm; Wt 71.5 kg
[2025-01-11] MEDS ORDERED: LIDOCAINE 2% 100 MG/5 ML SDV (FOR ANES.) As Ordered ONE (08:00)
[2025-01-11 10:10] VITALS: TEMP 98.9
[2025-01-11 10:35] VITALS: BP 134/72; O2SAT 96
== END 2025-01-11 10:38 | disposition home or self-care (01) ==
LOC: M OPP 07:26
PROVIDERS: ATTEND Internal Medicine Gastroenterology
DX: Z12.11 Encounter for screening for malignant neoplasm of colon (principal); K57.30 Diverticulosis of large intestine without perforation or abscess without bleeding; K64.0 First degree hemorrhoids; K44.9 Diaphragmatic hernia without obstruction or gangrene; K31.89 Other diseases of stomach and duodenum; K22.89 Other specified disease of esophagus; R13.10 Dysphagia, unspecified; R12 Heartburn; Z95.5 Presence of coronary angioplasty implant and graft; Z86.73 Personal history of transient ischemic attack (TIA), and cerebral infarction without residual deficits; Z95.0 Presence of cardiac pacemaker; Z88.1 Allergy status to other antibiotic agents; Z88.8 Allergy status to other drugs, medicaments and biological substances; Z79.82 Long term (current) use of aspirin; Z79.51 Long term (current) use of inhaled steroids; Z79.899 Other long term (current) drug therapy
CPT/HCPCS: 43249; 45378; 88305; J3010

== ENCOUNTER → 2025-02-26 | Outpatient (CLI) | payer MEDICARE ==
[~2025-02-26] MED LIST changes: +LIQUID POLIBAR PLUS 105% w/v 750 ML BTL As Ordered ONE
== END ==
LOC: M RAD 09:50
PROVIDERS: ATTEND Internal Medicine Gastroenterology
DX: Z12.11 Encounter for screening for malignant neoplasm of colon (principal)

== ENCOUNTER → 2025-04-26 | Outpatient (CLI) | payer MEDICARE ==
[~2025-04-26] MED LIST changes: -LIQUID POLIBAR PLUS 105% w/v 750 ML BTL As Ordered ONE
== END ==
LOC: M WUC 12:46
PROVIDERS: ATTEND Nurse Practitioner Family
DX: M79.672 Pain in left foot (principal); M19.072 Primary osteoarthritis, left ankle and foot